=== PATIENT | male | born 1930 | race Caucasian/White ===

== ENCOUNTER 2016-10-14 08:05 | Inpatient (IN) | payer MEDICARE ==
--- NOTE | 2016-10-10 21:14 | HP ---
HISTORY AND PHYSICAL: DATE OF ADMISSION/SURGERY: 10/14/16 PROCEDURE: Right total knee arthroplasty. CHIEF COMPLAINT: Right knee pain. HISTORY OF PRESENT ILLNESS: Mr. Medina is an 86-year-old gentleman with complaints of right knee p ain. He has failed conservative management and he has elected to proceed with a right total knee ar throplasty which is scheduled for 10/14/[address] Leal. PAST MEDICAL HISTORY: Hypertension, prostate cancer, sleep apnea, hyperlipidemia, neurofibromatosis and basal cell carcinoma. PAST SURGICAL HISTORY: Hernia repair, cardiac catheterization, lumpectomy, basal cell removal. CURRENT MEDICATIONS: 1. Aspirin 81 mg once a day. 2. Naproxen 500 mg twice a day. 3. Fish oil 1000 mg 3 times a day. 4. Lisinopril 5 mg once a day. 5. Vitamin C 500 mg 3 times a day. 6. Calcium plus vitamin D 600 mg once a day. 7. Multivitamin once a day. 8. AREDS 2 once a day. 9. Flomax 0.4 mg once a day. 10. Lupron injection. ALLERGIES: To LIDOCAINE. FAMILY HISTORY: Heart disease and Parkinson's disease. SOCIAL HISTORY: He is an 86-year-old gentleman. He lives with his . He is retired. He is a f ormer smoker. He does not use drugs or alcohol. REVIEW OF SYSTEMS: A complete 14-point review of systems was reviewed with the patient, it was all negative or noncontributory. PHYSICAL EXAMINATION GENERAL: An 86-year-old gentleman who is in no acute distress. He is alert and oriented x3. HEENT: Normocephalic, atraumatic. NECK: Supple. Trachea is midline. PULMONARY: Lungs are clear to auscultation bilaterally. CARDIO: Regular rate and rhythm. Strong S1, S2. ABDOMEN: Soft, nontender, nondistended. MUSCULOSKELETAL: Right lower extremity, the skin is intact. His lower extremities muscle group str engths are intact at 5/5. He had an intact sensation and 2+ dorsalis pedis pulses. NEUROLOGICAL: Alert and oriented x3. Cranial nerves II through XII are intact. ASSESSMENT AND PLAN: Mr. Medina is an 86-year-old gentleman with complaints of right knee pain se condary to advanced osteoarthritis. He has failed conservative management and has elected to procee d with a right total knee arthroplasty which is scheduled for 10/14/[address] Leal di scussed the risks and benefits of the surgery at today's visit and all of his questions were answere d. Percocet and Coumadin were sent to his pharmacy for postoperative DVT prophylaxis and pain contr ol. He will follow up with Dr. Leal in 2 weeks after the surgery. LESTER BETH [id number]/[facility] #: [id number]
[~2016-10-14 08:05] MED LIST: Buffered Lidocaine 1% SYR 3ML* 3 ML/SYR SYRINGE INTRADERM ONE; Dexamethasone IV* 4 MG/ML 1 ML (4 MG) IV SLOW PU ONE; Famotidine IV* 10 MG/ML 2 ML (20 mg) IV ONE
[2016-10-14] MEDS ORDERED: Famotidine IV* 10 MG/ML 2 ML (20 mg) ONE ×2 (08:16→09:31)
[2016-10-14] MEDS ORDERED: Dexamethasone IV* 4 MG/ML 1 ML (4 MG) ONE ×2 (08:16→09:28)
[2016-10-14] MEDS ORDERED: ceFAZolin 2 GM PREMIX(*) 2 GM/50 ML BAG IVPB ONE (08:17)
[2016-10-14] MEDS ORDERED: Bupivacaine 0.5% SDV PF* 30 ML VIAL ONE (09:28)
[2016-10-14] MEDS ORDERED: Propofol* 500 MG/50 ML BTL ONE (09:28)
[2016-10-14] MEDS ORDERED: Propofol* 10 MG/ML 20 ML BTL IV PUSH ONE (09:28)
[2016-10-14] MEDS ORDERED: Ondansetron INJ* 2 MG/ML VIAL ONE (09:28)
[2016-10-14] MEDS ORDERED: fentaNYL* 50 MCG/ML 2 ML VIAL (100 MCG VIAL) ONE (09:28)
[2016-10-14] MEDS ORDERED: Ketorolac INJ* 30 MG/ML 1 ML VIAL ONE (09:28)
[2016-10-14] MEDS ORDERED: Phenylephrine INJ* 10 MG/ML 1 ML VIAL (10 MG) ONE (09:28)
[2016-10-14] MEDS ORDERED: KETAMINE HCL* 50 MG/ML 10 ML VIAL ONE (09:29)
[2016-10-14] MEDS ORDERED: Midazolam* 1 MG/ML 5 ML VIAL (5 MG) ONE (09:29)
[2016-10-14] MEDS ORDERED: Morphine PF AMP (0.5MG/ML)* 5 MG/10 ML AMP ONE (09:29)
[2016-10-14] MEDS ORDERED: Midazolam* 1 MG/ML 2 ML VIAL (2 MG) ONE (10:35)
[2016-10-14] MEDS ORDERED: Metoclopramide IV* 5 MG/ML 2 ML VIAL ONE (10:59)
[2016-10-14] MEDS ORDERED: fentaNYL* 50 MCG/ML 2 ML VIAL (100 MCG VIAL) IV PRN (11:40)
[2016-10-14] MEDS ORDERED: Ondansetron INJ* 2 MG/ML VIAL IV PRN ×2 (11:40→12:04)
[2016-10-14] MEDS ORDERED: DiMENhydriNATE IV* 50 MG/ML VIAL IV PUSH PRN (11:40)
[2016-10-14] MEDS ORDERED: Phenylephrine INJ* 50 MG in NS 0.9% 250 ML* 245 ML IV PRN (11:40)
[2016-10-14] MEDS ORDERED: Lactated Ringers 500 ml BAG* 500 ML IV PRN (11:58)
[2016-10-14] MEDS ORDERED: EPHEDrine (Pressors)* 50 MG/ML VIAL IV PUSH PRN (11:58)
[2016-10-14] MEDS ORDERED: oxyCODONE/Acetamin 5/325 MG* TAB PO PRN ×2 (11:58)
[2016-10-14] MEDS ORDERED: diPHENhydraMINE IV* 50 MG/ML 1 ml VIAL (BENADRYL) IV PRN (12:04)
[2016-10-14] MEDS ORDERED: Naloxone* 0.4 MG/ML 1 ML VIAL IV PRN (12:04)
[2016-10-14] MEDS ORDERED: Acetaminophen TAB* 325 MG PO PRN (13:29)
[2016-10-14] MEDS ORDERED: Bisacodyl SUPP* 10 MG SUPP PR PRN (13:37)
[2016-10-14] MEDS ORDERED: Polyethylene Glycol 3350* 17 GM PACKET PO PRN (13:37)
[2016-10-14] MEDS ORDERED: Fluticasone NASAL SPRAY 50MCG* 16 gm SPRAY BTL BOTH NARES PRN (13:42)
--- NOTE | 2016-10-14 14:24 | RAD ---
Indication: Right knee bipolar arthroplasty. 2 views of the right knee taken at the operating room demonstrates bipolar knee arthroplasty in satisfactory position. Drainage catheters are in place. IMPRESSION: Right knee bipolar arthroplasty in satisfactory position.
[2016-10-14] MEDS: Ropivacaine* 300 MG in NS 0.9% 250 ML* 240 ML EPIDURAL SCH (14:30)
[2016-10-14] MEDS ORDERED: Ropivacaine (OR use only) 2 MG/ML 1 ML ONE (15:06)
[2016-10-14] MEDS ORDERED: Warfarin TAB(*) 6 MG PO ONE (17:00)
[2016-10-14] MEDS: Ascorbic Acid TAB* 500 MG PO SCH ×2 (17:25→21:59)
--- NOTE | 2016-10-14 17:40 | CONS ---
CONSULTATION REPORT: DATE OF CONSULT: 10/14/16 AGE: 86. PRIMARY CARE PROVIDER: Dr. Vito Way. ATTENDING PHYSICIAN: Dr. Kamlesh Natarajan (dictated by Maisha Swann NP). PHYSICIAN REQUESTING CONSULTATION: Dr. Misa Leal. REASON FOR CONSULTATION: Co-medical management in a patient with a history of hypertension and obstructive sleep apnea. HISTORY OF PRESENT ILLNESS: Mr. Medina is an 86-year-old male with past medical history significant for hypertension, hyperlipidemia, obstructive sleep apnea, and prostate carcinoma who presents to the hospital for an elective right total knee replacement with Dr. Leal. Postoperatively, the patient is doing well and his pain is controlled. He has no complaints. The patient states that leading up to his surgery he has been in a good state of health with the exception of his right knee pain. The patient denies any recent fevers , chills, shortness of breath, or chest discomfort. The hospitalists were asked to assist with management of this patient during his postoperative period. PAST MEDICAL HISTORY: 1. Hypertension. 2. Prostate carcinoma. 3. Obstructive sleep apnea. 4. Hyperlipidemia. 5. Neurofibromatosis. 6. Bilateral ear basal cell carcinoma. 7. Obesity. 8. Arthritis. PAST SURGICAL HISTORY: 1. Status post bilateral inguinal hernia repair. 2. Status post cardiac catheterization. 3. Status post excision of neurofibromatosis from scalp. 4. Status post cosmetic excision of lumps from forehead. 5. Status post basal cell carcinoma excision from bilateral ears. 6. Status post benign excision from the nose. HOME MEDICATIONS: Include: 1. Aspirin 81 mg oral twice daily. 2. Naproxen 500 mg oral twice daily. 3. Fish oil 1000 mg oral 3 times daily. 4. Lisinopril 5 mg oral twice daily. 5. Vitamin C 500 mg oral 3 times daily. 6. Calcium plus vitamin D 600-400 one tablet oral twice daily. 7. AREDS 2 one tablet oral twice daily. 8. Flomax 0.4 mg oral daily. 9. Lupron injection every 4 months based on PSA level. Last injection was in August. ALLERGIES: LIDOCAINE PATCH causes anxiety. FAMILY HISTORY: The patient's father passed at age 68 of a myocardial infarction. The patient's sister passed at age 70 from heart disease. The patient's mother passed from pneumonia as a complication from Parkinson's disease. The patient denies any family history of diabetes mellitus or cancer. SOCIAL HISTORY: The patient is a former smoker. He quit smoking in 1958. Prior to that, he smoked half a pack a day for several years. The patient drinks a glass of wine weekly. He denies any recreational drug use. He lives with his and is retired. His , Michelle Medina, will be his surrogate decision maker in the event that he is unable to make decisions for himself. REVIEW OF SYSTEMS: I performed a 14-point review of systems. All the pertinent positives and negatives are mentioned in the history of present illness. The remaining review of systems are negative. PHYSICAL EXAMINATION: Vital Signs: Temperature 97.7, heart rate 64, respiratory rate 16, O2 sat 96% on 3 L via nasal cannula, blood pressure 116/ 69. Appearance: The patient is alert, pleasant, appears to be in no acute distress. HEENT: Normocephalic, atraumatic. Pupils are equal and reactive to light. Extraocular movements are intact. Cardiovascular: Regular rate and rhythm. S1, S2 are crisp. There are no murmurs, rubs, or gallops heard. Extremities: There is no lower extremity edema. DP and PT pulses are 2+ and symmetric. Respiratory: There is no accessory muscle use and the lungs are clear to auscultation bilaterally. Abdomen: Soft, nontender, nondistended. There are bowel sounds present in all 4 quadrants. Musculoskeletal: There is no clubbing or cyanosis noted. Skin: The patient has a dressing on his right knee that is clean, dry, and intact. Neurological: Cranial nerves II through XII are grossly intact. The patient is alert and oriented x4. Psychological: The patient is calm and cooperative. DIAGNOSTIC STUDIES: Right knee x-ray from today: Right knee bipolar arthroplasty in satisfactory position. IMPRESSION: Mr. Medina is an 86-year-old male with past medical history significant for hypertension, hyperlipidemia, obstructive sleep apnea, and arthritis who presented to the hospital today for an elective right total knee arthroplasty with Dr. Leal. Hospitalists were asked to assist with co- management of this patient during his hospitalization. PLAN: 1. Status post right total knee arthroplasty: Postop day. Management will be per Orthopedic Surgery. The patient will be provided with pain medication and a bowel regimen. His hemoglobin and hematocrit will be trended. He will have physical therapy and occupational therapy. His urinary catheter will remain in place until postop day 1. 2. Hypertension: In the perioperative period, we will hold the patient's lisinopril and restart accordingly. 3. Obstructive sleep apnea: The patient is noncompliant with CPAP at home h.s. use. He will be monitored on capnography postoperatively. 4. Prostate cancer: The patient should follow with Dr. Reid. 5. History of basal cell carcinoma: The patient should follow up with Dr. Sales. 6. Fluids, electrolytes, and nutrition: The patient will be on a regular diet starting with clear liquids and advance as tolerated. 7. DVT prophylaxis: The patient will be on Lovenox bridged to warfarin per Orthopedic Surgery. 8. Code status: Full code. 9. Disposition: Inpatient with disposition per Orthopedic Surgery. TIME SPENT: The time spent for this consultation was 60 minutes and 30 minutes were spent [id number] with the patient discussing medications, past medical history, and the events leading up to his arrival today and performing the physical examination. The case has been reviewed with the attending, Dr. Natarajan, who agrees with the plan of care. Reviewed by SATISH SOTO-Venkat 10/16/16 1233 CC: Dr. Vito Way; Dr. Misa Leal* [id number]/[facility] #: [id number] [facility] CENTERDipesh
[2016-10-14] MEDS: ceFAZolin 1 GM in Dextrose (*) 1 GM/50 ML BAG IVPB SCH (17:47)
[2016-10-14] MEDS ORDERED: Lisinopril TAB* 5 MG PO SCH (21:00)
[2016-10-14] MEDS: Docusate CAP* 100 MG PO SCH (21:59)
[2016-10-14] MEDS: Magnesium Hydroxide LIQ* 30 ML UDC PO SCH (22:05)
[2016-10-15] MEDS: ceFAZolin 1 GM in Dextrose (*) 1 GM/50 ML BAG IVPB SCH ×2 (02:31→10:24)
[2016-10-15] MEDS ORDERED: Ondansetron INJ* 2 MG/ML VIAL IV PRN (04:04)
[2016-10-15] MEDS ORDERED: oxyCODONE/Acetamin 5/325 MG* TAB PO PRN ×2 (04:04)
[2016-10-15] MEDS ORDERED: Morphine INJ* 10 MG/ML 1 ML SYRINGE IV PRN (04:04)
[2016-10-15] MEDS ORDERED: diPHENhydraMINE PO* 25 MG PO PRN (04:04)
[2016-10-15] MEDS ORDERED: Ondansetron TAB* 4 MG PO PRN (04:04)
[2016-10-15] MEDS ORDERED: diPHENhydraMINE IV* 50 MG/ML 1 ml VIAL (BENADRYL) IV PRN (04:04)
[2016-10-15 06:47] LABS: Hematocrit 33 % (42-52)
[2016-10-15 07:05] LABS: BUN/Creatinine Ratio 25.5 (8-20); Calcium 8.2 mg/dL (8.6-10.3); EGFR African American 93.5 (>60); EGFR Non-African American 72.7 (>60); Potassium 3.8 mmol/L (3.5-5.0)
--- NOTE | 2016-10-15 07:15 | OP ---
OPERATIVE REPORT: DATE OF OPERATION: 10/14/16 DATE OF : 32 ATTENDING SURGEON: Misa Leal MD. TELECOM MANAGER: LESTER Mckeon. Ms. Pineda was utilized throughout the entire procedure for preparation of the leg, wound retraction, manipulation of the leg, and wound closure. ANESTHESIOLOGIST: . ANESTHESIA: Spinal, epidural. PRE-OP DIAGNOSIS: Severe endstage degenerative osteoarthritis of the right knee joint. POST-OP DIAGNOSIS: Severe endstage degenerative osteoarthritis of the right knee joint. OPERATIVE PROCEDURE: Right total knee arthroplasty. COMPLICATIONS: None. TOURNIQUET TIME: 56 minutes. ESTIMATED BLOOD LOSS: Less than 200 cc. SPECIMENS: Bone and cartilage from the right knee joint, sent to Pathology. HARDWARE USED: Cemented [employer] total knee hardware. Two packages of Simplex bone cement. For the femur, a size 8 right posterior stabilized LEGION femoral component; for the tibia, a size 7 right tibial baseplate; for the insert, a 9 mm posterior stabilized articular insert; and for the patella, a 35- mm 3-peg all poly patella. BRIEF HISTORY/INDICATION: Mr. Medina is an 86-year-old gentleman with years of increasingly severe right knee pain. He failed conservative treatment with anti- inflammatories, pain medications, intra-articular injection, and physical therapy, as well as use of cane. He elected to undergo right total knee arthroplasty due to continued pain and decreased quality of life. Radiographs showed severe end-stage arthritis with [id number] contact in the medial compartment. Informed consent was obtained from the patient. He understood the risks of the surgery include, but were not limited to, bleeding, infection, damage to nearby structures, continued pain, need for further surgery, intraoperative fracture, nerve palsy, hardware failure or loosening, stiffness, loss of motion, stroke, heart attack, blood clot, and . INTRAOPERATIVE FINDINGS: Intraoperatively, the patient was noted to have severe endstage arthritis with complete loss of cartilage in the medial and patellofemoral compartments. He had a 15-degree preop flexion contracture. Postoperatively, this patient had full extension to 125 degrees of flexion. DESCRIPTION OF PROCEDURE: Mr. Medina is an 86-year-old gentleman identified in the pre-anesthesia unit. His right lower extremity was marked as the correct operative side. Informed consent was signed and placed in the chart. The patient was taken to the operating room and placed under spinal epidural anesthesia without difficulty. A Hickman catheter was placed. Thigh high tourniquet was placed on the right thigh. Right lower extremity was prepped and draped in the usual sterile fashion. Preoperative time-out was made to correctly identify the patient's side and site. Appropriate perioperative antibiotics were given within one hour of incision. Tourniquet was inflated and total tourniquet time for this procedure was 56 minutes. A 10-blade was used to make a midline incision and carried down to the extensor mechanism. A new 10-blade was used to make a standard medial parapatellar arthrotomy. Patella was subluxed laterally. Electrocautery was used to subperiosteally elevate the soft tissue off the superomedial tibia to the mid sagittal plane. The knee was flexed up. The anterior horn of the lateral meniscus and ACL was sharply released. A drill was used to enter the distal femur. Intramedullary distal femoral cutting guide was pinned on the distal femur. Oscillating saw was used to make the distal femoral cut. Next, the external rotation guide was placed on the distal femur. Distal femur was sized to a size 8. Size 8 multi-cutting jig was pinned on the distal femur. Oscillating saw was used to make the appropriate four chamfer cuts. All bony fragments were carefully removed. Patient was noted to have some osteopenia. PCL was completely released. The tibia was subluxed anteriorly. Extramedullary tibial cutting guide was pinned on the proximal tibia. Oscillating saw was used to make the proximal tibial cut perpendicular to the mechanical axis of the tibia. The proximal tibial bone was carefully removed. The knee was brought out into full extension. A spacer block was placed and had good balancing of the medial and lateral ligaments. Flexion and extension gaps were well balanced. The knee was flexed up. Lamina sample grader was placed both medially and laterally. Any remaining meniscus was carefully removed using electrocautery. Curved osteotome was used to remove any posterior osteophyte. A size 8 right femoral trial was impacted on to the distal femur and had good fit. The box for the posterior stabilized implant was prepared using a reamer and box cut osteotome. A size 7 tibial tray trial and 9 mm insert trial were placed and the knee was taken through a range of motion. The knee had full extension to 125 degrees of flexion with good patellofemoral tracking. Patella was everted. 9 mm of patellar bone and cartilage were carefully removed using an oscillating saw. The patella was sized to a size 5. Size 35 drill guide was used to drill the three peg holes. A 35 trial patella was placed and the knee was taken through a range of motion. There was excellent patellofemoral tracking. All trials were carefully removed. The tibia was subluxed anteriorly and sized to a size 7. Proximal tibia was prepared using a size 7 keel punch. All bony surfaces were copiously irrigated with sterile saline and dried. Final components were cemented into place, starting with the tibia, followed by the femur, and lastly the patella. A 9-mm insert trial was placed while the knee was brought out into full extension. Tourniquet was turned down at 56 minutes. The cement was allowed to fully cure. The knee was copiously irrigated with sterile saline. Once the cement was fully cured, the insert trial was removed. Electrocautery was used to obtain meticulous hemostasis. Any excess cement around the implants were carefully removed. Final insert chosen was a 9 mm posterior stabilized articular insert, size 7-8. This was locked into position on the tibial tray. Stability of the insert was checked and rechecked and noted to be stable. The knee was copiously irrigated with sterile saline. The extensor mechanism was reapproximated using interrupted #1 Vicryl's over a medium Hemovac drain. The rest of the incision was closed in a layered fashion using 0 and 2-0 Vicryl' s. The skin was closed using running 3-0 nylon suture. The incision was covered with Xeroform, 4 x 4's, and Webril. Kailash wrap and cold packs were placed over this. Intended weightbearing will be weightbearing as tolerated. Intended DVT prophylaxis will be Coumadin, with a Lovenox bridge. The patient's anesthesia was reversed and he was taken to the PACU in stable condition. [id number]/[facility] #: [id number] DONALD
[2016-10-15] MEDS: Docusate CAP* 100 MG PO SCH ×2 (08:04→21:40)
[2016-10-15] MEDS: Magnesium Hydroxide LIQ* 30 ML UDC PO SCH ×2 (08:04→21:41)
[2016-10-15] MEDS: Ascorbic Acid TAB* 500 MG PO SCH ×3 (08:04→21:40)
[2016-10-15] MEDS: Tamsulosin CAP* 0.4 MG PO SCH ×2 (08:05→08:42)
--- NOTE | 2016-10-15 10:32 | PN ---
Subjective Date of Service: 10/15/16 Interval History: Patient seen this morning. Says he feels very well, surprised at how little pain he is having. Eating well. Hickman out. No BM yet. Family History: Unchanged from Admission Social History: Unchanged from Admission Past Medical History: Unchanged from Admission Objective Active Medications: Acetaminophen (Tylenol Tab*) 650 mg PO Q4H PRN Ascorbic Acid (Vitamin C Tab*) 500 mg PO TID ANUPAM Bisacodyl (Dulcolax Supp*) 10 mg KS DAILY PRN Diphenhydramine HCl (Benadryl Iv*) 12.5 mg IV Q6H PRN Diphenhydramine HCl (Benadryl Po*) 25 mg PO Q6H PRN Docusate Sodium (Colace Cap*) 100 mg PO BID AUNPAM Enoxaparin Sodium (Lovenox(*)) 30 mg SUBCUT Q24H ANUPAM Fluticasone Propionate (Flonase Nasal [place] 50mcg*) 1 spray BOTH NARES DAILY PRN Phenylephrine HCl 50 mg/ (Sodium Chloride) 250 mls @ 6 mls/hr IV .(Initial Rate ) PRN; 20 MCG/MIN Ropivacaine 300 mg/ Sodium (Chloride) 300 mls @ 0 mls/hr EPIDURAL Q24H ANUPAM; Per Protocol Cefazolin Sodium/Dextrose (Kefzol 1 Gm In Dextrose Duplex (*)) 1 gm in 50 mls @ 200 mls/hr IVPB Q8H ANUPAM Lactated Ringer's (Lactated Ringers 1000 Ml Bag*) 1,000 mls @ 100 mls/hr IV PER RATE ANUPAM Lactulose (Lactulose*) 30 ml PO Q6H PRN Magnesium Hydroxide (Milk Of Magnesia Liq*) 30 ml PO BID ANUPAM Morphine Sulfate (Morphine Inj (Syringe)*) 5 mg IV Q2H PRN Ondansetron HCl (Zofran Inj*) 4 mg IV Q6H PRN Ondansetron HCl (Zofran Tab*) 4 mg PO Q6H PRN Oxycodone HCl (Roxycodone Tab*) 10 mg PO Q4H PRN Oxycodone/Acetaminophen (Percocet 5/325 Tab*) 1 tab PO Q3H PRN Oxycodone/Acetaminophen (Percocet 5/325 Tab*) 2 tab PO Q3H PRN Polyethylene Glycol/Electrolytes (Miralax*) 17 gm PO DAILY PRN Tamsulosin HCl (Flomax Cap*) 0.4 mg PO DAILY ANUPAM Warfarin Sodium (Coumadin Tab(*)) 8 mg PO ONCE@1700 ONE Vital Signs 10/14/16 10/14/16 10/14/16 13:20 13:25 13:30 Temperature 97.7 F Pulse Rate 74 73 72 Respiratory 14 16 18 Rate Blood Pressure 104/67 100/63 97/65 (mmHg) O2 Sat by Pulse 92 94 94 Oximetry 10/14/16 10/14/16 10/14/16 16:10 16:35 17:13 Temperature 97.3 F 97.8 F Pulse Rate 74 64 Respiratory 16 16 14 Rate Blood Pressure 119/66 117/69 (mmHg) O2 Sat by Pulse 99 97 97 Oximetry 10/15/16 10/15/16 10/15/16 00:10 02:10 03:37 Temperature 97.4 F Pulse Rate 54 Respiratory 16 18 16 Rate Blood Pressure 98/54 (mmHg) O2 Sat by Pulse 98 97 100 Oximetry 10/15/16 10/15/16 10/15/16 05:49 06:00 07:32 Temperature 97.6 F Pulse Rate 55 Respiratory 20 20 16 Rate Blood Pressure 105/60 (mmHg) O2 Sat by Pulse 95 100 Oximetry Oxygen Devices in Use Now: None Appearance: Elderly, M, sitting in chair in NAD Eyes: No Scleral Icterus Ears/Nose/Mouth/Throat: Mucous Membranes Moist Neck: NL Appearance and Movements; NL JVP Respiratory: Symmetrical Chest Expansion and Respiratory Effort, Clear to Auscultation Cardiovascular: NL Sounds; No Murmurs; No JVD, RRR Abdominal: NL Sounds; No Tenderness; No Distention Lymphatic: No Cervical Adenopathy Extremities: - - Mild B/L LE ankle edema, R cryounit in place Skin: No Rash or Ulcers Neurological: Alert and Oriented x 3 Result Diagrams: 10/15/16 06:38 10/15/16 06:38 Assess/Plan/Problems-Billing Assessment: 86 yo M with hx of HTN, HLD, ARABELLA, prostate ca s/p R TKA on 10/14 - Patient Problems (1) Status post total knee replacement, right Current Visit: Yes Comment: done on 10/14. Management as per Orthopedics. Patient on coumadin/lovenox. Hickman removed. (2) HTN (hypertension) Current Visit: Yes Comment: BPs stable/low. Continue to hold BID Lisinopril. (3) ARABELLA (obstructive sleep apnea) Current Visit: Yes Comment: Non-compliant at home, will not start CPAP while hospitalized. (4) Prostate cancer Current Visit: Yes Comment: Continue flomax. On outpatient Lupron depot shots. F/U with Dr. Reid as outpatient. (5) DVT prophylaxis Current Visit: Yes Comment: Lovenox/Coumadin
[2016-10-15] MEDS: Ropivacaine* 300 MG in NS 0.9% 250 ML* 240 ML EPIDURAL SCH (12:21)
[2016-10-15] MEDS: Enoxaparin(*) 30 MG/0.3 ML SYR SUBCUT SCH (14:47)
[2016-10-15] MEDS ORDERED: Warfarin TAB(*) 4 MG PO ONE (17:00)
[2016-10-15] MEDS: oxyCODONE TAB* 5 MG TAB PO PRN (21:40)
[2016-10-16] MEDS: oxyCODONE TAB* 5 MG TAB PO PRN ×2 (02:09→06:26)
[2016-10-16 06:26] LABS: Hematocrit 32 % (42-52); Hemoglobin 10.6 g/dl (14.0-18.0)
--- NOTE | 2016-10-16 07:43 | PN ---
Progress Note - Progress Note SOAP: Subjective: Pt. reports pain is controlled, he is doing well, feels safe to go home. Objective: RLE - dressing changed, inc c/d/i. min edema, distally nvi. Vital Signs: Temp Pulse Resp BP Pulse Ox 98.4 F 83 20 118/63 93 10/16/16 04:04 10/16/16 04:04 10/16/16 06:26 10/16/16 04:04 10/16/16 04:04 Laboratory Results - last 24 hr 10/16/16 10/16/16 05:53 05:53 Hgb 10.6 L Hct 32 L INR (Anticoag Therapy) 1.34 H Assessment: 86 yo M pod 2 s/p RTKA Plan: wbat rle pt/ot 8 mg coumadin tonight, give lovenox this AM plan d/c to home with vns today after afternoon PT
[2016-10-16 08:02] VITALS: BP 109/48
[2016-10-16] MEDS: Docusate CAP* 100 MG PO SCH (09:47)
[2016-10-16] MEDS: Tamsulosin CAP* 0.4 MG PO SCH (09:47)
[2016-10-16] MEDS: Magnesium Hydroxide LIQ* 30 ML UDC PO SCH (09:47)
[2016-10-16] MEDS: Ascorbic Acid TAB* 500 MG PO SCH (09:47)
[2016-10-16] MEDS: Enoxaparin(*) 30 MG/0.3 ML SYR SUBCUT SCH (09:48)
[2016-10-16] MEDS ORDERED: Warfarin TAB(*) 4 MG PO ONE (12:00)
--- NOTE | 2016-10-17 02:27 | DS ---
DISCHARGE SUMMARY: DATE OF ADMISSION: 10/14/16 DATE OF DISCHARGE: 10/16/16 ATTENDING PROVIDER: Dr. Leal (DICTATED BY LESTER WEISS) ADMISSION DIAGNOSIS: Severe end-stage osteoarthritis of the right knee. DISCHARGE DIAGNOSIS: Severe end-stage osteoarthritis of the right knee. SURGERY PERFORMED: Right total knee arthroplasty. HOSPITAL COURSE: The patient is an 86-year-old male who has had increasingly severe right knee pain. He failed conservative management with antiinflammatories, pain medications and intraarticular cortisone injections, as well as physical therapy and use of a cane. The patient elected to proceed with surgical intervention and was taken to the operating room under the care of Dr. Misa Leal on the date of 10/14/16. He tolerated the procedure well and left the operating room in stable condition. Postoperatively, he progressed very well with physical therapy and occupational therapy goals, bearing weight as tolerated on the right lower extremity. The patient had no acute postoperative complications and was found to be stable for discharge to home on the date of 10/16/16. CONDITION ON DISCHARGE: The patient is afebrile. His vital signs are stable. His right knee incision is healing without evidence of infection. His dressings have been changed. His calf is soft and nontender. His neurovascular status is intact. He has dorsiflexion and plantarflexion of the right ankle. PLAN: Discharge to home. He will continue with his physical therapy and occupational therapy exercises, bearing weight as tolerated on the right lower extremity. He will continue with Coumadin for his DVT prophylaxis. He will receive 8 mg of Coumadin today prior to his discharge. He will take 4 mg of Coumadin on 10/17/16, and 4 mg of Coumadin on 10/18/16. He will then take 2 mg of Coumadin on 10/19/16, and will have visiting home nurse see him on Thursday where an INR will be drawn and next Coumadin dosage to follow. He will continue with Colace and the Percocet medications for pain and prevent constipation. He will follow up with Dr. Leal in roughly 2 weeks in the office. He will call with any complaints of fever, chills, increased knee pain, swelling, drainage, redness, calf pain, calf swelling, shortness of breath, or chest pain. LESTER WEISS [id number]/[facility] #: [id number] [facility]PITAL[facility]ip[facility]
== END 2016-10-16 12:35 | disposition home health service (06) | DRG 470 ==
LOC: AA 08:05 → SSU 13:30
PROVIDERS: ADMIT Orthopaedic Surgery Adult Reconstructive Orthopaedic Surgery; ATTEND Orthopaedic Surgery Adult Reconstructive Orthopaedic Surgery
PROC: 0SRC0J9 Replacement of Right Knee Joint with Synthetic Substitute, Cemented, Open Approach (ICD-10-PCS; principal; 2016-10-14 10:30)
DX: M17.11 Unilateral primary osteoarthritis, right knee (principal); I27.2 Other secondary pulmonary hypertension; I10 Essential (primary) hypertension; Z85.46 Personal history of malignant neoplasm of prostate; E78.5 Hyperlipidemia, unspecified; Q85.00 Neurofibromatosis, unspecified; Z88.8 Allergy status to other drugs, medicaments and biological substances; Z82.49 Family history of ischemic heart disease and other diseases of the circulatory system; Z82.0 Family history of epilepsy and other diseases of the nervous system; Z87.891 Personal history of nicotine dependence; G47.33 Obstructive sleep apnea (adult) (pediatric); E66.9 Obesity, unspecified; Z85.828 Personal history of other malignant neoplasm of skin; Z68.31 Body mass index [BMI] 31.0-31.9, adult
CPT/HCPCS: 36415; 62327; 80048; 85014; 85018; 85610; 88305; 88311; A9270-GY; C1776; J0690; J1100; J1650; J1885; J2250; J2405; J2704; J2795; J3010

== ENCOUNTER 2016-11-06 16:35 | Observation (INO) | payer MEDICARE ==
[2016-11-06] MEDS ORDERED: Aspirin Low Dose CHEW TAB* 81 MG PO ONE (18:47)
[2016-11-06 18:53] LABS: Hematocrit 36 % (42-52); Hemoglobin 11.7 g/dl (14.0-18.0); Mean Corpuscular HGB Conc 33 g/dl (31-36); Mean Corpuscular Hemoglobin 30 pg (27-31); Mean Corpuscular Volume 90 fL (80-94); Mean Platelet Volume 8 um3 (7.4-10.4); Red Blood Count 3.97 10^6/ul (4.0-5.4); Red Cell Distribution Width 15 % (10.5-15); White Blood Count 7.2 10^3/ul (3.5-10.8)
[2016-11-06 19:05] LABS: Albumin 4.1 g/dL (3.2-5.2); BUN/Creatinine Ratio 23.2 (8-20); Calcium 9.3 mg/dL (8.6-10.3); EGFR African American 96.9 (>60); EGFR Non-African American 75.3 (>60); Globulin 2.7 g/dL (2-4); Total Protein 6.8 g/dL (6.4-8.9)
[2016-11-06 19:06] LABS: Troponin I 0.02 ng/mL (<0.04)
[2016-11-06] MEDS ORDERED: Iohexol 350* (CONTRAST) 500 ML MDV IV ONE (19:13)
[2016-11-06 20:31] LABS: Erythrocyte Sed Rate 32 mm/Hr (0-40)
--- NOTE | 2016-11-06 20:38 | RAD ---
Indication: Bilateral leg edema. Duplex Doppler sonography of the deep venous system of the bilateral lower extremity deep venous system was performed. Bilaterally the common femoral veins appear patent and compressible. Bilaterally proximal greater saphenous vein, proximal deep femoral vein, femoral vein, popliteal vein, appear patent and compressible. Right calf veins are limited in evaluation due to extreme swelling and body habitus. Left calf veins appear patent and compressible. IMPRESSION: NO EVIDENCE OF DEEP VENOUS THROMBOSIS IS IDENTIFIED. RIGHT PERONEAL VEINS AND POSTERIOR TIBIAL VEINS ARE NOT WELL DEMONSTRATED DUE TO BODY HABITUS AND SWELLING.
--- NOTE | 2016-11-06 20:45 | RAD ---
Indication: Palpitations. Single frontal view of the chest performed at 1914 hours was reviewed. Comparison is made with previous exam dated October 10, 2016. No mediastinal shift is noted. Heart is of normal size and configuration. Lung marcum appear clear. Hyperinflated lung marcum are noted. IMPRESSION: NO ACTIVE CARDIOPULMONARY DISEASE IS NOTED.
--- NOTE | 2016-11-06 20:48 | RAD ---
Indication: Palpitations. Contrast: Administered 98.0 ml of OMNIPAQUE 300 mgi/ml CTA of the chest was performed after IV contrast demonstration. Coronal and sagittal reconstructed images were obtained. The pulmonary arterial tree is well opacified. There are no evidence of filling defect to suggest pulmonary embolus. The aorta demonstrates no evidence of aortic dissection or aortic aneurysm. There is cardiomegaly noted. The trachea and major bronchi appear patent. The lung marcum demonstrate no evidence of pleural fluid, nodules or masses. Inferior thyroid lobes are unremarkable. No mediastinal or hilar adenopathy is noted. The heart demonstrates no pericardial effusion. The trachea and major bronchi appear patent. Lung marcum demonstrate no evidence of alveolar consolidation. The visualized abdominal organs are unremarkable. IMPRESSION: NO DEFINITE EVIDENCE OF PULMONARY EMBOLUS IS NOTED. NO ALVEOLAR CONSOLIDATION IS NOTED.
[2016-11-06] MEDS ORDERED: Diltiazem IV* 5 MG/ML 5 ML VIAL (for loading dose/IV Push) (25 MG) IV SLOW PU ONE (20:55)
[2016-11-06] MEDS ORDERED: Metoprolol Tartrate IV* 1 MG/ML 5 ML VIAL IV PRN (21:02)
[2016-11-06 21:31] LABS: C Reactive Protein 8.42 mg/L (< 5.00)
[2016-11-06] MEDS ORDERED: Warfarin TAB(*) 5 MG PO ONE ×2 (22:00)
[2016-11-06] MEDS: Enoxaparin(*) 150 MG/ML 1 ML SYRINGE SUBCUT SCH (23:28)
--- NOTE | 2016-11-06 23:35 | HP ---
CC: Dr. Vito Way; Dr. Misa Leal * HISTORY AND PHYSICAL: DATE OF ADMISSION: 11/06/16 CHIEF COMPLAINT: Tachycardia. HISTORY OF PRESENT ILLNESS: The patient is an 86-year-old gentleman, who said he was feeling at home but that the visiting nurse who had come by and said his heart rate was quite high. They called the PCP who saw him and he had an EKG done and they were concerned it was atrial fibrillation with a rapid ventricular response. The patient was completely asymptomatic. He had no palpitations, no chest pain, no shortness of breath. The EKG was repeated here , it was difficult to tell if it was sinus tachycardia, Aflutter, or atrial fibrillation. There did, however, seemed to be some detectable waves. The patient's INR was subtherapeutic. Venous duplex was done because he had a significantly enlarged right lower extremity and it was negative. He also had a CTA of his chest done and showed no evidence of PE. The patient is admitted because his INR is subtherapeutic and he is still quite tachycardic. PAST MEDICAL HISTORY: Significant for hypertension, prostate cancer, obstructive sleep apnea, hyperlipidemia, neurofibromatosis, bilateral ear basal cell carcinoma, obesity, arthritis. PAST SURGICAL HISTORY: Significant for total knee replacement in this past September , bilateral inguinal hernia repair, status post cardiac cath, status post excision of neurofibromatosis from the scalp, status post cosmetic excision of lumps from forehead, status post basal cell carcinoma excision from bilateral ears, status post benign excision from the nose. CURRENT MEDICATIONS: 1. Tamsulosin 0.4 mg daily. 2. [place] 3 fatty acid 1 capsule 3 times a day. 3. Multivitamin 1 capsule daily. 4. Calcium carbonate with vitamin D 1 cap twice daily. 5. Ascorbic acid 500 mg 3 times a day. 6. AREDS vitamin for the eyes. ALLERGIES: He has an allergy/adverse reaction to LIDOCAINE PATCH, which cause anxiety. FAMILY HISTORY: Father at 68 of an [place]. Mother from pneumonia, had Parkinson. He had sister who at 70 from heart disease. SOCIAL HISTORY: Ex-tobacco, quit in 59. Drinks a glass of wine weekly. No recreational drug use. He is . His , Michelle Medina, is his healthcare proxy. REVIEW OF SYSTEMS: A 14-point review of systems was completed with the patient. All pertinent positives and negatives are in the history of present illness; otherwise, it is negative. PHYSICAL EXAMINATION GENERAL: A pleasant gentleman, lying in bed, in no acute distress. VITAL SIGNS: Heart rate 119 beats per minute, respiratory rate 20 breaths per minute, pulse ox 96%, blood pressure 126/87, temperature 97 degrees. HEENT: Normocephalic, atraumatic. Pupils equal, round, reactive to light. Moist mucous membranes. NECK: Supple. No JVD, bruits, palpable thyroid or lymphadenopathy. CHEST: Clear to auscultation. CARDIOVASCULAR: S1, S2 appreciated. Increased rate, regular rhythm. ABDOMEN: Positive bowel sounds in all 4 quadrants. Soft, nontender. EXTREMITIES: No cyanosis or clubbing. He had significant right lower extremity edema, but no tenderness. Negative Homans. NEUROLOGIC: He is alert and oriented x3. He moves all extremities. SKIN: Several growths on his scalp, but no other significant lesions. DIAGNOSTIC STUDIES/LAB DATA: White count 7.2, hemoglobin 11.7, hematocrit 36, platelets of 318. Sodium is 134, potassium 4.0, chloride 99, CO2 27, BUN 22, creatinine 0.95, glucose is 111, CRP is 8.42. D-dimer is 839. Chest x-ray was interpreted by Radiology as no active cardiopulmonary disease is noted. CTA of the chest shows no definite evidence of PE is noted. No alveolar consolidation is noted. Venous duplex shows no evidence of DVT is identified, right peroneal veins and posterior tibial veins not well demonstrated due to body habitus and swelling. EKG shows possible sinus tachycardia versus AFib with rapid ventricular response. ASSESSMENT AND PLAN: 1. Tachycardia. I do believe not sure if this is really atrial fibrillation. His heart rate is also quite regular. I will try to get his heart rate under good control with Lopressor 5 mg IV q.6 hours. He is already on Coumadin, so I will continue that, but I will place him on Lovenox as a bridge at this time. I will place him on telemetry and monitor him in a CD unit. 2. Hypertension. Blood pressure well-controlled, continue current regimen. 3. FEN. Regular diet. 4. DVT prophylaxis: He is on Lovenox at treatment doses. 5. The patient is a full code. TIME SPENT: Over 80 minutes were spent on this H and P, and more than 45 minutes were spent in direct [id number] contact with the patient in evaluation , physical examination, counseling, and coordination of care. [id number]/[facility] #: [id number] DONALD
--- NOTE | 2016-11-06 23:38 | ED ---
Jimbo Malave Aidan, scribed for Yaakov Blanco MD on 11/06/16 at 1905 . Palpitations / Dysrhythmia - HPI Summary HPI Summary: 86 y/o male presents to the ED with a complaint of an acute, moderate episode of AFiB based on an ekg reading. Currently, he is asymptomatic. Pt denies any fever, diaphoresis, chills, CP, or SOB. Hx of prostate CA and a knee replacement 3 weeks ago. - History of Current Complaint Chief Complaint: EDDysrhythmPalp Time Seen by Provider: 11/06/16 18:45 Hx Obtained From: Patient Onset/Duration: Sudden Onset, Lasting Hours, Resolved Timing: Intermittent Episodes Lasting: Severity Initially: Moderate Severity Currently: Moderate Character: Irregular - AFiB Aggravating: Nothing - unknown Alleviating: Nothing - unknown Associated Signs & Symptoms: Negative - Risk Factors Cardiac: Smoking - former Pulmonary Embolism: Smoking - former - Allergy/Home Medications Allergies/Adverse Reactions: Allergies Allergy/AdvReac Type Severity Reaction Status Date / Time Lidocaine AdvReac Anxiety Verified 10/14/16 08:25 PMH/Surg Hx/FS Hx/Imm Hx Cardiovascular History: Reports: Hx Hypertension Respiratory History: Reports: Hx Sleep Apnea - no machine History: Reports: Other Problems/Disorders - enlarged prostate cancer Musculoskeletal History: Reports: Hx Arthritis Sensory History: Reports: Hx Cataracts - mild, Hx Contacts or Glasses Denies: Hx Hearing Aid Opthamlomology History: Reports: Hx Cataracts - mild, Hx Contacts or Glasses - Surgical History Surgery Procedure, Year, and Place: bilat inguinal hernia. 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 Hx Anesthesia Reactions: No Infectious Disease History: No Infectious Disease History: Denies: Traveled Outside the [place] in Last 30 Days - Family History Known Family History: Positive: Hypertension - Social History Occupation: Retired Lives: With Family Alcohol Use: Occasionally Substance Use Type: Reports: None Smoking Status (MU): Former Smoker Do You Chew or Dip Tobacco: No Amount Used/How Often: smoked 8 years, 1/2 - 1ppd Have You Chewed or Dipped Tobacco in the LAST YEAR: No Review of Systems Constitutional: Negative Eyes: Negative ENT: Negative Positive: Palpitations - AFiB. Negative: Chest Pain Respiratory: Negative Gastrointestinal: Negative Genitourinary: Negative Musculoskeletal: Negative Skin: Negative Neurological: Negative Psychological: Normal All Other Systems Reviewed And Are Negative: Yes Physical Exam - Summary Physical Exam Summary: Constitutional: Well-developed, Well-nourished, Alert. (-) Distressed Skin: Warm, Dry HENT: Normocephalic; Atraumatic Eyes: Conjunctiva normal Neck: Musculoskeletal ROM normal neck. (-) JVD, (-) Stridor, (-) Tracheal deviation Cardio: Irregular tachycardic pulse, Heart sounds normal; Intact distal pulses; The pedal pulses are 2+ and symmetric. Radial pulses are 2+ and symmetric. (-) Murmur Pulmonary/Chest wall: Effort normal. (-) Respiratory distress, (-) Wheezes, (-) Rales Abd: Soft, (-) Tenderness, (-) Distension, (-) Guarding, (-) Rebound Musculoskeletal: (-) Edema, swelling and warmth over right knee which has an incision Lymph: (-) Cervical adenopathy Neuro: Alert, Oriented x3 Psych: Mood and affect Normal Triage Information Reviewed: Yes Vital Signs On Initial Exam: Initial Vitals Temp Pulse Resp BP Pulse Ox 98.9 F 125 20 139/90 99 11/06/16 17:08 11/06/16 17:08 11/06/16 17:08 11/06/16 17:08 11/06/16 17:08 Vital Signs Reviewed: Yes Diagnostics - Vital Signs Vital Signs Temp Pulse Resp BP Pulse Ox 11/06/16 17:54 97 F 124 16 117/74 97 11/06/16 17:11 98.6 F 124 20 139/90 99 11/06/16 17:08 98.9 F 125 20 139/90 99 - Laboratory Lab Results: Lab Results 11/06/16 11/06/16 11/06/16 Range/Units 18:30 18:30 18:30 WBC 7.2 (3.5-10.8) 10^3/ul RBC 3.97 L (4.0-5.4) 10^6/ul Hgb 11.7 L (14.0-18.0) g/dl Hct 36 L (42-52) % MCV 90 (80-94) fL MCH 30 (27-31) pg MCHC 33 (31-36) g/dl RDW 15 (10.5-15) % Plt Count 318 (150-450) 10^3/ul MPV 8 (7.4-10.4) um3 Neut % (Auto) 66.0 (38-83) % Lymph % (Auto) 20.1 L (25-47) % [place] % (Auto) 7.3 (1-9) % Eos % (Auto) 5.4 (0-6) % Baso % (Auto) 1.2 (0-2) % Absolute Neuts (auto) 4.8 (1.5-7.7) 10^3/ul Absolute Lymphs (auto) 1.5 (1.0-4.8) 10^3/ul Absolute Monos (auto) 0.5 (0-0.8) 10^3/ul Absolute Eos (auto) 0.4 (0-0.6) 10^3/ul Absolute Basos (auto) 0.1 (0-0.2) 10^3/ul Absolute Nucleated RBC 0.01 10^3/ul Nucleated RBC % 0.1 ESR 32 (0-40) mm/Hr INR (Anticoag Therapy) 1.23 H (0.89-1.11) APTT 33.5 (26.0-36.3) seconds D-Dimer, Quantitative 839 H (Less Than 230) ng/mL Sodium 134 (133-145) mmol/L Potassium 4.0 (3.5-5.0) mmol/L Chloride 99 L (101-111) mmol/L Carbon Dioxide 27 (22-32) mmol/L Anion Gap 8 (2-11) mmol/L BUN 22 (6-24) mg/dL Creatinine 0.95 (0.67-1.17) mg/dL Est GFR ( Amer) 96.9 (>60) Est GFR (Non-Af Amer) 75.3 (>60) BUN/Creatinine Ratio 23.2 H (8-20) Glucose 111 H (70-100) mg/dL Lactic Acid (0.5-2.0) mmol/L Calcium 9.3 (8.6-10.3) mg/dL Total Bilirubin 1.00 (0.2-1.0) mg/dL AST 14 (13-39) U/L ALT 17 (7-52) U/L Alkaline Phosphatase 91 (34-104) U/L Troponin I 0.02 (<0.04) ng/mL C-Reactive Protein 8.42 H (< 5.00) mg/L Total Protein 6.8 (6.4-8.9) g/dL Albumin 4.1 (3.2-5.2) g/dL Globulin 2.7 (2-4) g/dL Albumin/Globulin Ratio 1.5 (1-3) 11/06/16 Range/Units 18:30 WBC (3.5-10.8) 10^3/ul RBC (4.0-5.4) 10^6/ul Hgb (14.0-18.0) g/dl Hct (42-52) % MCV (80-94) fL MCH (27-31) pg MCHC (31-36) g/dl RDW (10.5-15) % Plt Count (150-450) 10^3/ul MPV (7.4-10.4) um3 Neut % (Auto) (38-83) % Lymph % (Auto) (25-47) % [place] % (Auto) (1-9) % Eos % (Auto) (0-6) % Baso % (Auto) (0-2) % Absolute Neuts (auto) (1.5-7.7) 10^3/ul Absolute Lymphs (auto) (1.0-4.8) 10^3/ul Absolute Monos (auto) (0-0.8) 10^3/ul Absolute Eos (auto) (0-0.6) 10^3/ul Absolute Basos (auto) (0-0.2) 10^3/ul Absolute Nucleated RBC 10^3/ul Nucleated RBC % ESR (0-40) mm/Hr INR (Anticoag Therapy) (0.89-1.11) APTT (26.0-36.3) seconds D-Dimer, Quantitative (Less Than 230) ng/mL Sodium (133-145) mmol/L Potassium (3.5-5.0) mmol/L Chloride (101-111) mmol/L Carbon Dioxide (22-32) mmol/L Anion Gap (2-11) mmol/L BUN (6-24) mg/dL Creatinine (0.67-1.17) mg/dL Est GFR ( Amer) (>60) Est GFR (Non-Af Amer) (>60) BUN/Creatinine Ratio (8-20) Glucose (70-100) mg/dL Lactic Acid 0.9 (0.5-2.0) mmol/L Calcium (8.6-10.3) mg/dL Total Bilirubin (0.2-1.0) mg/dL AST (13-39) U/L ALT (7-52) U/L Alkaline Phosphatase (34-104) U/L Troponin I (<0.04) ng/mL C-Reactive Protein (< 5.00) mg/L Total Protein (6.4-8.9) g/dL Albumin (3.2-5.2) g/dL Globulin (2-4) g/dL Albumin/Globulin Ratio (1-3) Result Diagrams: 11/06/16 18:30 11/06/16 18:30 Lab Statement: Any lab studies that have been ordered have been reviewed, and results considered in the medical decision making process. - Radiology CHEST X-RAY Xray Interpretation: No Acute Changes Radiology Interpretation Completed By: Radiologist - CT CHEST/THORAX CTA CT Interpretation: No Acute Changes - IMPRESSION: NO DEFINITE EVIDENCE OF PULMONARY EMBOLUS IS NOTED. NO ALVEOLAR CONSOLIDATION IS NOTED. CT Interpretation Completed By: Radiologist - Ultrasound No standard instances Ultrasound Interpretation: No Acute Changes - VENOUS DOPPLER US IMPRESSION: NO EVIDENCE OF DEEP VENOUS THROMBOSIS IS IDENTIFIED. RIGHT PERONEAL VEINS AND POSTERIOR TIBIAL VEINS ARE NOT WELL DEMONSTRATED DUE TO BODY HABITUS AND SWELLING. Ultrasound Interpretation Completed By: Radiologist - EKG EKG 1714 Cardiac Rate: Tachycardia - 124 BPM EKG Rhythm: Atrial Fibrillation EKG Interpretation: AFIB, RAPID VENTRICULAR RESPONSE, NORMAL ST SEGMENTS Course/Dx - Course Course Of Treatment: 86 y/o male presents with an ekg reading of AFiB according to him. - Diagnoses Provider Diagnoses: Atrial fibrillation with rapid ventricular response Discharge - Discharge Plan Condition: Stable Disposition: ADMITTED TO [facility] documentation as recorded by the Jimbo archibald Aidan accurately reflects the service I personally performed and the decisions made by Bella abreu Jerry, MD.
[2016-11-07 01:56] LABS: Troponin I 0.02 ng/mL (<0.04)
[2016-11-07 05:36] LABS: Hematocrit 31 % (42-52); Hemoglobin 10.3 g/dl (14.0-18.0); Mean Corpuscular HGB Conc 33 g/dl (31-36); Mean Corpuscular Hemoglobin 30 pg (27-31); Mean Corpuscular Volume 90 fL (80-94); Mean Platelet Volume 8 um3 (7.4-10.4); Red Blood Count 3.47 10^6/ul (4.0-5.4); Red Cell Distribution Width 14 % (10.5-15); White Blood Count 6.4 10^3/ul (3.5-10.8)
[2016-11-07] MEDS ORDERED: Tamsulosin CAP* 0.4 MG PO SCH (09:00)
[2016-11-07] MEDS ORDERED: Ascorbic Acid TAB* 500 MG PO SCH (09:00)
[2016-11-07] MEDS ORDERED: Vitamin THERAPEUTIC TAB PO SCH (09:00)
[2016-11-07] MEDS ORDERED: Preservision Areds(NF) CAP PO SCH (09:00)
[2016-11-07] MEDS ORDERED: Calcium/Vitamin D TAB 250/125* TAB PO SCH (09:00)
[2016-11-07] MEDS: Enoxaparin(*) 150 MG/ML 1 ML SYRINGE SUBCUT SCH (10:15)
--- NOTE | 2016-11-07 10:58 | PN ---
Subjective Date of Service: 11/07/16 Interval History: Mr. Medina denies complaint and is eager for discharge today. He specifically denies chest pain, SOB, nausea, or abdominal pain. Objective Active Medications: Ascorbic Acid (Vitamin C Tab*) 500 mg PO TID [facility] Calcium/Vitamin D (Oscal D Tab 250/125*) 2 tab PO BID ANUPAM Enoxaparin Sodium (Lovenox(*)) 110 mg SUBCUT Q12H ANUPAM Metoprolol Tartrate (Lopressor Iv*) 5 mg IV Q6H PRN Multivitamins (Theragran Tab*) 1 tab PO DAILY [facility] Multivitamins/Minerals (Preservision Areds(Multivitamins/Mineral)(Nf)) 2 cap PO DAILY [facility] Tamsulosin HCl (Flomax Cap*) 0.4 mg PO DAILY [facility] Vital Signs 11/06/16 11/06/16 11/06/16 21:53 22:00 22:30 Temperature 97.2 F Pulse Rate 121 121 120 Respiratory 24 17 18 Rate Blood Pressure 114/68 117/73 137/86 (mmHg) O2 Sat by Pulse 96 96 97 Oximetry 11/06/16 11/07/16 11/07/16 23:32 03:53 07:21 Temperature 98.0 F 98.3 F 98.3 F Pulse Rate 123 71 75 Respiratory 16 16 20 Rate Blood Pressure 121/73 98/61 122/75 (mmHg) O2 Sat by Pulse 97 96 96 Oximetry Oxygen Devices in Use Now: None Appearance: Male lying in bed in NAD Eyes: No Scleral Icterus Ears/Nose/Mouth/Throat: Mucous Membranes Moist Neck: Trachea Midline Respiratory: Symmetrical Chest Expansion and Respiratory Effort, Clear to Auscultation Cardiovascular: NL Sounds; No Murmurs; No JVD, No Edema Abdominal: NL Sounds; No Tenderness; No Distention Lymphatic: No Cervical Adenopathy Extremities: No Edema Skin: No Rash or Ulcers, - - neurofibromatosis to left forehead Neurological: Alert and Oriented x 3, NL Muscle Strength and Tone Nutrition: Taking PO's Result Diagrams: 11/07/16 05:13 11/06/16 18:30 Additional Lab and Data: Lab Results 11/06/16 11/06/16 11/06/16 Range/Units 18:30 18:30 18:30 WBC 7.2 (3.5-10.8) 10^3/ul RBC 3.97 L (4.0-5.4) 10^6/ul Hgb 11.7 L (14.0-18.0) g/dl Hct 36 L (42-52) % MCV 90 (80-94) fL MCH 30 (27-31) pg MCHC 33 (31-36) g/dl RDW 15 (10.5-15) % Plt Count 318 (150-450) 10^3/ul MPV 8 (7.4-10.4) um3 Neut % (Auto) 66.0 (38-83) % Lymph % (Auto) 20.1 L (25-47) % [place] % (Auto) 7.3 (1-9) % Eos % (Auto) 5.4 (0-6) % Baso % (Auto) 1.2 (0-2) % Absolute Neuts (auto) 4.8 (1.5-7.7) 10^3/ul Absolute Lymphs (auto) 1.5 (1.0-4.8) 10^3/ul Absolute Monos (auto) 0.5 (0-0.8) 10^3/ul Absolute Eos (auto) 0.4 (0-0.6) 10^3/ul Absolute Basos (auto) 0.1 (0-0.2) 10^3/ul Absolute Nucleated RBC 0.01 10^3/ul Nucleated RBC % 0.1 ESR 32 (0-40) mm/Hr INR (Anticoag Therapy) 1.23 H (0.89-1.11) APTT 33.5 (26.0-36.3) seconds D-Dimer, Quantitative 839 H (Less Than 230) ng/mL Sodium 134 (133-145) mmol/L Potassium 4.0 (3.5-5.0) mmol/L Chloride 99 L (101-111) mmol/L Carbon Dioxide 27 (22-32) mmol/L Anion Gap 8 (2-11) mmol/L BUN 22 (6-24) mg/dL Creatinine 0.95 (0.67-1.17) mg/dL Est GFR ( Amer) 96.9 (>60) Est GFR (Non-Af Amer) 75.3 (>60) BUN/Creatinine Ratio 23.2 H (8-20) Glucose 111 H (70-100) mg/dL Lactic Acid (0.5-2.0) mmol/L Calcium 9.3 (8.6-10.3) mg/dL Total Bilirubin 1.00 (0.2-1.0) mg/dL AST 14 (13-39) U/L ALT 17 (7-52) U/L Alkaline Phosphatase 91 (34-104) U/L Troponin I 0.02 (<0.04) ng/mL C-Reactive Protein 8.42 H (< 5.00) mg/L Total Protein 6.8 (6.4-8.9) g/dL Albumin 4.1 (3.2-5.2) g/dL Globulin 2.7 (2-4) g/dL Albumin/Globulin Ratio 1.5 (1-3) /01/15 Range/Units 18:30 WBC (3.5-10.8) 10^3/ul RBC (4.0-5.4) 10^6/ul Hgb (14.0-18.0) g/dl Hct (42-52) % MCV (80-94) fL MCH (27-31) pg MCHC (31-36) g/dl RDW (10.5-15) % Plt Count (150-450) 10^3/ul MPV (7.4-10.4) um3 Neut % (Auto) (38-83) % Lymph % (Auto) (25-47) % [place] % (Auto) (1-9) % Eos % (Auto) (0-6) % Baso % (Auto) (0-2) % Absolute Neuts (auto) (1.5-7.7) 10^3/ul Absolute Lymphs (auto) (1.0-4.8) 10^3/ul Absolute Monos (auto) (0-0.8) 10^3/ul Absolute Eos (auto) (0-0.6) 10^3/ul Absolute Basos (auto) (0-0.2) 10^3/ul Absolute Nucleated RBC 10^3/ul Nucleated RBC % ESR (0-40) mm/Hr INR (Anticoag Therapy) (0.89-1.11) APTT (26.0-36.3) seconds D-Dimer, Quantitative (Less Than 230) ng/mL Sodium (133-145) mmol/L Potassium (3.5-5.0) mmol/L Chloride (101-111) mmol/L Carbon Dioxide (22-32) mmol/L Anion Gap (2-11) mmol/L BUN (6-24) mg/dL Creatinine (0.67-1.17) mg/dL Est GFR ( Amer) (>60) Est GFR (Non-Af Amer) (>60) BUN/Creatinine Ratio (8-20) Glucose (70-100) mg/dL Lactic Acid 0.9 (0.5-2.0) mmol/L Calcium (8.6-10.3) mg/dL Total Bilirubin (0.2-1.0) mg/dL AST (13-39) U/L ALT (7-52) U/L Alkaline Phosphatase (34-104) U/L Troponin I (<0.04) ng/mL C-Reactive Protein (< 5.00) mg/L Total Protein (6.4-8.9) g/dL Albumin (3.2-5.2) g/dL Globulin (2-4) g/dL Albumin/Globulin Ratio (1-3) Assess/Plan/Problems-Billing Assessment: Mr. Medina is an 86 yo male with a PMH of hypertension and recent right knee surgery who was admitted on 11/06/16 with tachycardia. - Patient Problems (1) Tachycardia Comment: Resolved, was asymptomatic throughout episode. Was not afib, just sinus tachycardia. No clear etiolog. CTA chest negative, US LE negative. Pt advised to stay hydrated and avoid caffeine. Will not start beta donn as patient has history of hypotension and this was a self-limited, asymptomatic, one-time episode. TSH pending. (2) HTN (hypertension) Comment: Continue lisinopril. (3) ARABELLA (obstructive sleep apnea) Comment: Non-compliant at home, will not start CPAP while hospitalized. (4) Status post total knee replacement, right Comment: Recovering well. (5) DVT prophylaxis Comment: Reviewed with Dr. Leal that patient is subtherapeutic on warfarin. Recommended to increase dose, no lovenox recommended.
[2016-11-07 11:21] VITALS: BP 120/65
[2016-11-07 11:34] LABS: TSH (Thyroid Stimulating Horm) 0.72 mcIU/mL (0.34-5.60)
--- NOTE | 2016-11-07 22:54 | DS ---
CC: Dr. Way * [facility] MEDICINE DISCHARGE SUMMARY: DATE OF ADMISSION: 11/06/16 DATE OF DISCHARGE: 11/07/16 ATTENDING PHYSICIAN: Dr. Wilmar Oviedo * (dictation provided by Kenia Chappell NP). PRIMARY DIAGNOSIS: Sinus tachycardia. SECONDARY DIAGNOSES: 1. History of recent right total knee replacement. 2. Hypertension. 3. Prostate cancer. 4. Obstructive sleep apnea. 5. Hyperlipidemia. 6. Neurofibromatosis. 7. Bilateral ear basal cell carcinoma. 8. Obesity. 9. Arthritis. 10. Bilateral inguinal hernia repair. 11. Status post cardiac cath. 12. Status post excision of neurofibromatosis from the scalp. 13. Status post cosmetic excision of lumps from the forehead. 14. Status post basal cell carcinoma excision from bilateral ears. 15. Status post benign excision from the nose. MEDICATIONS: At the time of discharge are: 1. Tamsulosin 0.4 mg daily. 2. [place] 3 fatty acid 1 capsule 3 times a day. 3. Multivitamin 1 capsule daily. 4. Calcium carbonate with vitamin D 1 cap twice daily. 5. Ascorbic acid 500 mg 3 times a day. 6. AREDS vitamins. 7. Warfarin 4 mg p.o. daily. HOSPITAL COURSE: Mr. Medina is an 86-year-old male with a past medical history of hypertension and recent total knee replacement with Dr. Leal in September who presented to the hospital yesterday with concerns for tachycardia. Please see the dictated H and P from Dr. Phillips for complete details. In brief, the patient had been evaluated by the visiting nurse at home and found to be tachycardic. The patient was sent to his primary care physician, Dr. Way, who obtained an EKG and was concerned that the perhaps the patient had atrial fibrillation and sent him to the emergency room. In the emergency room, he was found to be tachycardiac. Patient has a history of extensive work up with Dr. Duarte for concern of afib with absent to very small P waves, which was negative. Mr. Medina is doing well today. His heart rate is down from 120s to 70s. Throughout this entire episode, he has been asymptomatic. He did have a CTA of the chest and thorax, which was negative for pulmonary embolism as well as a venous Doppler study that was negative. I am not sure what caused Mr. Medina' s tachycardia. I have encouraged him to stay hydrated and avoid caffeine. We did check a TSH, but it is pending. He has no history of hypothyroidism. Mr. Medina is medically stable for discharge to home. He is going to be discharged on an increased dose of warfarin as his INR is subtherapeutic at 1.30 today. He states he was taking 2 mg at home and I am recommending he go up to 4 mg. He is followed regularly by [facility] for INR checks. This was reviewed with Dr. Leal who did not feel that the patient needed any further prophylaxis other than simple increase in his warfarin dose at this point. DISPOSITION: Home. DIET: Low salt. ACTIVITY: As tolerated. FOLLOWUP: 1. Please follow up Dr. Leal for routine after surgery. 2. Please follow up with Dr. Way as needed for any ongoing issues with tachycardia. TIME SPENT: Approximately 60 minutes were spent on the discharge of this patient, more than half the time spent with the patient at the bedside reviewing the events leading up to this hospitalization, performing the physical examination, and reviewing my plan of care. KENIA CHAPPELL NP [id number]/[facility] #: [id number] DONALD
== END 2016-11-07 12:49 | disposition home or self-care (01) ==
LOC: ED 16:35 → MEDTELE 21:02
PROVIDERS: ADMIT Internal Medicine; ATTEND Internal Medicine
DX: R00.0 Tachycardia, unspecified (principal); I10 Essential (primary) hypertension; Z85.46 Personal history of malignant neoplasm of prostate; G47.33 Obstructive sleep apnea (adult) (pediatric); E78.5 Hyperlipidemia, unspecified; Q85.00 Neurofibromatosis, unspecified; R60.9 Edema, unspecified; E66.9 Obesity, unspecified; M19.90 Unspecified osteoarthritis, unspecified site; Z95.5 Presence of coronary angioplasty implant and graft; Z79.01 Long term (current) use of anticoagulants; Z79.899 Other long term (current) drug therapy; Z87.891 Personal history of nicotine dependence; Z96.651 Presence of right artificial knee joint
CPT/HCPCS: 36415; 71010; 71275; 80053; 83605; 84443; 84484; 85025; 85379; 85610; 85652; 85730; 86140; 93005; 93970; 96372; 96374; 96375; 99284; A9270-GY; G0378; J1650; Q9967

== ENCOUNTER 2017-09-06 11:43 | Inpatient (IN) | payer MEDICARE ==
[2017-09-06] MEDS ORDERED: NS 0.9% 1000 ML* 1,000 ML IV ONE (13:10)
[2017-09-06 13:11] LABS: ABS Basophils 0.1 10^3/ul (0-0.2); ABS Eosinophils 0.1 10^3/ul (0-0.6); ABS Lymphocytes 0.7 10^3/ul (1.0-4.8); ABS Monocytes 0.7 10^3/ul (0-0.8); ABS Neutrophils 8.6 10^3/ul (1.5-7.7); ABS Nucleated RBC 0 10^3/ul; Eosinophil % 0.8 % (0-6); Hematocrit 26 % (42-52); Hemoglobin 8.6 g/dl (14.0-18.0); Lymphocyte % 6.8 % (25-47); Mean Corpuscular HGB Conc 33 g/dl (31-36); Mean Corpuscular Hemoglobin 30 pg (27-31); Mean Corpuscular Volume 90 fL (80-94); Mean Platelet Volume 7.8 um3 (7.4-10.4); Nucleated Red Blood Cells % 0.1; Platelet Count 255 10^3/ul (150-450); Red Blood Count 2.89 10^6/ul (4.0-5.4); Red Cell Distribution Width 14 % (10.5-15); White Blood Count 10.2 10^3/ul (3.5-10.8)
[2017-09-06 13:25] LABS: INR 4.8 (0.77-1.02)
[2017-09-06 13:30] LABS: EGFR Non-African American 72.5 (>60)
[2017-09-06] MEDS ORDERED: Magnesium Sulfate 2 GM IV* 2 GM/50 ML BAG IVPB ONE (14:42)
[2017-09-06] MEDS: NS 0.9% 1000 ML* 1,000 ML IV SCH (15:55)
[2017-09-06] MEDS: Phytonadione Oral Solution* 5 MG/25 ML UDC PO ONE ×2 (16:31→16:45)
[2017-09-06 17:17] LABS: Hematocrit 21 % (42-52); Hemoglobin 7.1 g/dl (14.0-18.0)
--- NOTE | 2017-09-06 18:15 | ED ---
Ian Malave Natalie, scribed for Timi Beltran MD on 09/06/17 at 1256 . GI/ HPI - HPI Summary HPI Summary: The pt is an 87 y/o M presenting to the ED c/o GI bleed with hematochezia starting this morning, as noticed by his . He had three BM this morning. The first was not looked at, but he noticed that the second was darker than usual, with possible blood. He had a third BM, close to incontinence, which had blood in it as observed by his . Pt additionally c/o pale and dry skin, swelling, tenderness, and erythema in left calf, and lightheadedness with movement. The pt takes Metoprolol (not taken this morning) for increased heart rate, as prescribed by Dr. Duarte. He has had a stress test before. - History of Current Complaint Chief Complaint: EDGIBleed Time Seen by Provider: 09/06/17 12:23 Stated Complaint: BLOODY STOOL Hx Obtained From: Patient Onset/Duration: Started Hours Ago, Still Present Timing: Intermittent Severity: Mild Current Severity: Mild Pain Intensity: 0 Associated Signs and Symptoms: Positive: Blood w/Stool, Lightheadedness, Pale, Other: - left leg swelling and tenderness - Additional Pertinent History Primary Care Physician: [id number] - Allergy/Home Medications Allergies/Adverse Reactions: Allergies Allergy/AdvReac Type Severity Reaction Status Date / Time lidocaine Allergy Anxiety Verified 09/06/17 12:03 Home Medications: Home Medications Metoprolol Succinate XL TAB* [Toprol XL TAB*] 25 mg PO DAILY 09/06/17 [History Confirmed 09/06/17] Tamsulosin CAP* [Flomax CAP*] 0.4 mg PO DAILY 09/06/17 [History Confirmed ] Vit C/E/Zn/Coppr/Lutein/Zeaxan [Preservision Areds 2 Softgel] 1 each PO DAILY [History Confirmed 09/06/17] Warfarin TAB(*) [Coumadin TAB(*)] 6 mg PO DAILY 09/06/17 [History Confirmed 01/16] PMH/Surg Hx/FS Hx/Imm Hx Cardiovascular History: Reports: Hx Hypertension Respiratory History: Reports: Hx Sleep Apnea - no machine History: Reports: Other Problems/Disorders - enlarged prostate cancer Musculoskeletal History: Reports: Hx Arthritis Sensory History: Reports: Hx Cataracts - mild, Hx Contacts or Glasses Denies: Hx Hearing Aid Opthamlomology History: Reports: Hx Cataracts - mild, Hx Contacts or Glasses - Surgical History Surgery Procedure, Year, and Place: bilat inguinal hernia. 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 Hx Anesthesia Reactions: No Infectious Disease History: No Infectious Disease History: Denies: Traveled Outside the [place] in Last 30 Days - Family History Known Family History: Positive: Hypertension - Social History Alcohol Use: Occasionally Substance Use Type: Reports: None Smoking Status (MU): Former Smoker Amount Used/How Often: smoked 8 years, 1/2 - 1ppd Review of Systems Positive: Other - swelling and redness of left calf All Other Systems Reviewed And Are Negative: Yes Physical Exam - Summary Physical Exam Summary: Appearance: The patient is well-nourished in no acute distress and in no acute pain. Skin: The skin is warm and dry and skin color reflects adequate perfusion. HEENT: The head is normocephalic and atraumatic. The pupils are equal and reactive. The conjunctivae are clear and without drainage. Nares are patent and without drainage. Mouth reveals moist mucous membranes and the throat is without erythema and exudate. The external ears are intact. The ear canals are patent and without drainage. The tympanic membranes are intact. Neck: the neck is supple with full range of motion and non-tender. There are no carotid bruits. There is no neck vein distension. Respiratory: Chest is non-tender. Lungs are clear to auscultation and breath sounds are symmetrical and equal. Cardiovascular: Heart is tachycardiac and irregular. There is no murmur or rub auscultated. There is peripheral edema in the distal left leg and pulses are symmetrical and equal. Abdomen: The abdomen is soft and non-tender. There are normal bowel sounds heard in all four quadrants and there is no organomegaly palpated. Musculoskeletal: There is no back tenderness noted. Extremities are non-tender with full range of motion. There is good capillary refill. There is distal swelling and erythema in the left leg. Neurological: Patient is alert and oriented to person, place and time. The patient has symmetrical motor strength in all four extremities. Cranial nerves are grossly intact. Deep tendon reflexes are symmetrical and equal in all four extremities. Psychiatric: The patient has an appropriate affect and does not exhibit any anxiety or depression. Triage Information Reviewed: Yes Vital Signs On Initial Exam: Initial Vitals Temp Pulse Resp BP Pulse Ox 97.1 F 86 14 120/88 98 09/06/17 12:03 09/06/17 12:03 09/06/17 12:03 09/06/17 12:03 09/06/17 12:03 Vital Signs Reviewed: Yes Diagnostics - Vital Signs Vital Signs Temp Pulse Resp BP Pulse Ox 09/06/17 12:30 46 27 130/52 97 09/06/17 12:20 88 20 98 09/06/17 12:18 129/63 09/06/17 12:03 97.1 F 86 14 120/88 98 - Laboratory Lab Results: Lab Results 09/06/17 09/06/17 09/06/17 Range/Units 12:59 12:59 12:59 WBC 10.2 (3.5-10.8) 10^3/ul RBC 2.89 L (4.0-5.4) 10^6/ul Hgb 8.6 L (14.0-18.0) g/dl Hct 26 L (42-52) % MCV 90 (80-94) fL MCH 30 (27-31) pg MCHC 33 (31-36) g/dl RDW 14 (10.5-15) % Plt Count 255 (150-450) 10^3/ul MPV 7.8 (7.4-10.4) um3 Neut % (Auto) 84.2 H (38-83) % Lymph % (Auto) 6.8 L (25-47) % Wolfe % (Auto) 7.1 H (0-7) % Eos % (Auto) 0.8 (0-6) % Baso % (Auto) 1.1 (0-2) % Absolute Neuts (auto) 8.6 H (1.5-7.7) 10^3/ul Absolute Lymphs (auto) 0.7 L (1.0-4.8) 10^3/ul Absolute Monos (auto) 0.7 (0-0.8) 10^3/ul Absolute Eos (auto) 0.1 (0-0.6) 10^3/ul Absolute Basos (auto) 0.1 (0-0.2) 10^3/ul Absolute Nucleated RBC 0 10^3/ul Nucleated RBC % 0.1 INR (Anticoag Therapy) (0.77-1.02) Sodium 138 L (139-145) mmol/L Potassium 5.1 H (3.5-5.0) mmol/L Chloride 103 (101-111) mmol/L Carbon Dioxide 26 (22-32) mmol/L Anion Gap 9 (2-11) mmol/L BUN 44 H (6-24) mg/dL Creatinine 0.98 (0.67-1.17) mg/dL Est GFR ( Amer) 93.3 (>60) Est GFR (Non-Af Amer) 72.5 (>60) BUN/Creatinine Ratio 44.9 H (8-20) Glucose 128 H (70-100) mg/dL Lactic Acid 1.4 (0.5-2.0) mmol/L Calcium 8.7 (8.6-10.3) mg/dL Magnesium 1.8 L (1.9-2.7) mg/dL Total Bilirubin 0.50 (0.2-1.0) mg/dL AST 13 (13-39) U/L ALT 17 (7-52) U/L Alkaline Phosphatase 63 (34-104) U/L Troponin I 0.02 (<0.04) ng/mL Total Protein 5.9 L (6.4-8.9) g/dL Albumin 3.2 (3.2-5.2) g/dL Globulin 2.7 (2-4) g/dL Albumin/Globulin Ratio 1.2 (1-3) TSH 0.70 (0.34-5.60) mcIU/mL 09/06/17 Range/Units 12:59 WBC (3.5-10.8) 10^3/ul RBC (4.0-5.4) 10^6/ul Hgb (14.0-18.0) g/dl Hct (42-52) % MCV (80-94) fL MCH (27-31) pg MCHC (31-36) g/dl RDW (10.5-15) % Plt Count (150-450) 10^3/ul MPV (7.4-10.4) um3 Neut % (Auto) (38-83) % Lymph % (Auto) (25-47) % Wolfe % (Auto) (0-7) % Eos % (Auto) (0-6) % Baso % (Auto) (0-2) % Absolute Neuts (auto) (1.5-7.7) 10^3/ul Absolute Lymphs (auto) (1.0-4.8) 10^3/ul Absolute Monos (auto) (0-0.8) 10^3/ul Absolute Eos (auto) (0-0.6) 10^3/ul Absolute Basos (auto) (0-0.2) 10^3/ul Absolute Nucleated RBC 10^3/ul Nucleated RBC % INR (Anticoag Therapy) 4.80 H (0.77-1.02) Sodium (139-145) mmol/L Potassium (3.5-5.0) mmol/L Chloride (101-111) mmol/L Carbon Dioxide (22-32) mmol/L Anion Gap (2-11) mmol/L BUN (6-24) mg/dL Creatinine (0.67-1.17) mg/dL Est GFR ( Amer) (>60) Est GFR (Non-Af Amer) (>60) BUN/Creatinine Ratio (8-20) Glucose (70-100) mg/dL Lactic Acid (0.5-2.0) mmol/L Calcium (8.6-10.3) mg/dL Magnesium (1.9-2.7) mg/dL Total Bilirubin (0.2-1.0) mg/dL AST (13-39) U/L ALT (7-52) U/L Alkaline Phosphatase (34-104) U/L Troponin I (<0.04) ng/mL Total Protein (6.4-8.9) g/dL Albumin (3.2-5.2) g/dL Globulin (2-4) g/dL Albumin/Globulin Ratio (1-3) TSH (0.34-5.60) mcIU/mL Result Diagrams: 09/06/17 17:12 09/06/17 12:59 Lab Statement: Any lab studies that have been ordered have been reviewed, and results considered in the medical decision making process. - EKG 12:43 Cardiac Rate: Tachycardia EKG Rhythm: Atrial Fibrillation - 143 BPM EKG Interpretation: aVR left axis. LAFB. GIGU Course/Dx - Course Course Of Treatment: Mr. Frederick was diagnosed with A-Fibe a few weeks ago and started on coumadin. Today he is feeling weak with exertion and has passed bloody stools at least twice. He was found to be more anemic HGB 8.6 down from 10. He was in A-Fib with RVR at 140 on arrival but hadn't taken his metoprolol this AM. He was initially treated with IV NS and his 25 mgs of metoprolol. This helped some and he is being admitted to the hospitalist service with a diagnosis of GI bleed and Afib with RVR. - Diagnoses Provider Diagnoses: GI bleeding, Atrial fibrillation with rapid ventricular response Discharge - Sign-Out/Discharge Documenting (check all that apply): Discharge - Discharge Plan Condition: Stable Disposition: ADMITTED TO [facility] Discharge Disposition Comment: The pt will be admitted to [facility] [place] [place] for continued care. - Billing Disposition and Condition Condition: STABLE Disposition: [facility] [place] [place] The documentation as recorded by the Ian archibald Natalie accurately reflects the service I personally performed and the decisions made by me, Timi Beltran MD.
[2017-09-06] MEDS: Nystatin TOP POWDER* 15 GM BTL TOPICAL SCH (20:21)
--- NOTE | 2017-09-06 22:49 | HP ---
CC: Dr. Vito Way; Dr. Cosme Duarte * HISTORY AND PHYSICAL: DATE OF ADMISSION: 09/06/17 PRIMARY CARE PROVIDER: Vito Way MD. ATTENDING PHYSICIAN: Soledad Arambula MD * (dictated by Lacey Guerin NP). CHIEF COMPLAINT: Bright red blood per rectum. HISTORY OF PRESENT ILLNESS: Mr. Medina is an 87-year-old male with past medical history significant for history of prostate cancer, hypertension, obstructive sleep apnea, hyperlipidemia, left lower extremity lymphedema, atrial fibrillation, and obesity, who presented to the emergency room with complaints of bright red blood per rectum. The patient denies any recent fevers , chills, chest pain, shortness of breath, nausea, vomiting or abdominal pain. The patient states that he was in his normal state of health until a few days ago when he was constipated and felt as though he was fully unable to pass stools. So, he manually disimpacted himself. He states that the next day he had a normal bowel movement. This morning, the patient had an emergent feeling of needing to defecate and when he went and later looked in the toilet, he noticed dark brown stool with some red in the toilet. He proceeded to go on with his day. He then again had an emergent need to use the bathroom, this time soiling himself and noted to have blood again in his stool. He was intermittently feeling lightheaded. He denied any palpitation. The patient states that he has recently been treated on antibiotics for a possible infection of his left leg. He is also following with the lymphedema clinic. He states the swelling in his legs is better in the morning and worse in the evening. He soaks his left foot in Epsom salt each morning. Due to the concern at the bright red blood in his stool, he presents to the emergency room for further evaluation. While in the emergency room, the patient was noted to have a hemoglobin of 8.6, down from 10.3 almost a year ago, and found to have an INR of 4.8, his magnesium was 1.8. He had an EKG showing possible atrial fibrillation versus sinus tachycardia. He had reported not taking his metoprolol this morning. So , he took his own metoprolol while in the emergency room. Due to the patient's bright red blood per rectum and the possibility of a GI bleed, hospitalist were asked to evaluate the patient for admission. PAST MEDICAL HISTORY: 1. Hypertension. 2. Prostate carcinoma. 3. Obstructive sleep apnea. 4. Hyperlipidemia. 5. Paroxysmal atrial fibrillation. 6. Left lower extremity lymphedema. 7. Neurofibromatosis. 8. Basal cell carcinoma of the ear. 9. Obesity. 10. Arthritis. PAST SURGICAL HISTORY: 1. Status post excision of basal cell carcinoma of bilateral ears. 2. Status post excision of lumps from his forehead. 3. Status post right total knee arthroplasty. 4. Status post bilateral inguinal hernia repairs. 5. Status post cardiac catheterization. 6. Status post excision of a neurofibromatosis from his scalp. HOME MEDICATIONS: Include: 1. Warfarin 6 mg oral daily. 2. Metoprolol succinate 25 mg oral daily. 3. PreserVision 1 tablet oral daily. 4. Flomax 0.4 mg oral daily. ALLERGIES: LIDOCAINE. FAMILY HISTORY: The patient's father passed at age 68 from a myocardial infarction. The patient's sister passed at age 70 from heart disease. He denies any family history of diabetes. He had a maternal aunt with a history of breast cancer. SOCIAL HISTORY: The patient is a former smoker. He quit smoking in 1958. Prior to that, he smoked half a pack a day for several years. The patient reports drinking a glass of wine weekly until a few weeks ago when he stopped drinking wine. He denies recreational drug use. He is retired and lives with his . His , Michelle Medina, will be his surrogate decision maker in the event that he is unable to make decisions for himself. REVIEW OF SYSTEMS: I performed an 11-point review of systems, all the pertinent positives and negatives are mentioned in the history of present illness. The remaining review of systems are negative. PHYSICAL EXAMINATION GENERAL APPEARANCE: The patient is alert, pleasant, and appears to be in no acute distress. VITAL SIGNS: Temperature 98.6, heart rate 103, respiratory rate 18, O2 sat 100 % on room air, blood pressure 117/68. HEENT: Normocephalic, atraumatic. Pupils are equal and reactive to light. Extraocular movements are intact. RESPIRATORY: There is no accessory muscle use. The lungs are clear to auscultation bilaterally. CARDIOVASCULAR: Regular rhythm. S1 and S2 present, tachycardic. There are no murmurs, rubs, or gallops heard. ABDOMEN: Soft, nontender, nondistended. There are bowel sounds present x4. EXTREMITIES: He has 1 to 2+ bilateral lower extremity edema, with the left worse than the right. DP and PT pulses are 2+ and symmetric. MUSCULOSKELETAL: There is no clubbing or cyanosis noted. The patient exhibits good strength in all extremities. NEUROLOGIC: The patient is alert and oriented x4. Cranial nerves II through XII are grossly intact. PSYCHOLOGICAL: The patient is calm and cooperative. SKIN: The patient has some chronic skin changes consistent with lymphedema. His left lower extremity is slightly warmer to the touch than his right, in addition to more edema. DIAGNOSTIC STUDIES/LABORATORY DATA: Sodium 138, potassium 5.1, chloride 103, CO2 of 26, BUN 44, creatinine 0.98, glucose is 128. Magnesium 1.8. TSH 0.70. White blood cell count 10.2, hemoglobin 8.6, hematocrit 26, platelet count 255. EKG shows sinus tach versus atrial fibrillation with a rate of 143. There are no acute signs of ischemia. This EKG is similar to the previous EKG with the exception that the previous EKG showed a sinus rhythm with a rate of 71, from 11/07/16. IMPRESSION: Mr. Medina is an 87-year-old male with past medical history significant for hypertension, prostate cancer, obstructive sleep apnea, hyperlipidemia, paroxysmal atrial fibrillation, obesity and left lower extremity lymphedema, who presented to the emergency room with complaints of bright red blood per rectum. He will be admitted as an inpatient for suspected lower GI bleed with a supratherapeutic INR. ASSESSMENT/PLAN: 1. Bright red blood per rectum: The patient denies any pain. I suspect this is either a diverticular bleed or caused from trauma of the patient disimpacting himself a few days prior. He has dropped his hemoglobin from 10.3 in October 2016, down to 8.6 today. We will trend his H and H every 6 hours. We will make sure he has [address] at all times. I will give him IV fluids. He also has a supratherapeutic INR. At that time, he will receive vitamin K. 2. Atrial fibrillation with RVR: The patient took his home metoprolol in the emergency room and his heart rate is better controlled. He is now mostly in the 100 to one-teens. We will hold his warfarin in the setting of a GI bleed. His INR is currently supratherapeutic. 3. Hypertension: The patient will be continued on his home metoprolol. 4. History of prostate cancer with BPH: The patient will be continued on Flomax. 5. Obstructive sleep apnea: The patient is untreated. 6. Obesity: The patient's BMI is greater than 30. 7. Left lower extremity lymphedema: At this point, I suspect that the patient' s redness and swelling in his leg is his chronic lymphedema. We will monitor him. He does not have an elevated white count. It was slightly warmer to touch. We will reevaluate the leg tomorrow to decide if this could potentially be a cellulitis and would consider starting him on antibiotics if the leg worsens. He is also afebrile at this time. 8. Fluids, electrolytes, and nutrition: The patient will be on a clear liquid diet. 9. Code status: Full code. 10. DVT prophylaxis: The patient is at high risk and will have SCDs only in the setting of a GI bleed. 11. Disposition: Inpatient. TIME SPENT: Time for this admission was approximately 60 minutes, greater than half of that was spent with the patient and discussing medications, past medical history, and the events leading up to their arrival today and performing my physical examination. The case has been reviewed with the attending, Dr. Arambula, who agrees with the plan of care. LACEY GUERIN, JUSTEN [id number]/CPS #: [id number] DONALD
[2017-09-07] MEDS: NS 0.9% 1000 ML* 1,000 ML IV SCH ×3 (00:11→20:59)
[2017-09-07 02:16] LABS: Hematocrit 16 % (42-52); Hemoglobin 5.2 g/dl (14.0-18.0)
[2017-09-07 03:02] LABS: Hematocrit 15 % (42-52); Hemoglobin 5.2 g/dl (14.0-18.0)
[2017-09-07 05:41] LABS: ABS Basophils 0.1 10^3/ul (0-0.2); ABS Eosinophils 0.1 10^3/ul (0-0.6); ABS Monocytes 0.6 10^3/ul (0-0.8); ABS Neutrophils 7.1 10^3/ul (1.5-7.7); ABS Nucleated RBC 0 10^3/ul; Eosinophil % 1.1 % (0-6); Hematocrit 14 % (42-52); Hemoglobin 4.8 g/dl (14.0-18.0); Mean Corpuscular HGB Conc 34 g/dl (31-36); Mean Corpuscular Hemoglobin 30 pg (27-31); Mean Corpuscular Volume 89 fL (80-94); Mean Platelet Volume 7.5 um3 (7.4-10.4); Nucleated Red Blood Cells % 0.5; Platelet Count 207 10^3/ul (150-450); Red Blood Count 1.59 10^6/ul (4.0-5.4); Red Cell Distribution Width 14 % (10.5-15); White Blood Count 8.8 10^3/ul (3.5-10.8)
[2017-09-07 05:44] LABS: INR 4.29 (0.77-1.02)
[2017-09-07] MEDS ORDERED: Phytonadione Oral Solution* 5 MG/25 ML UDC PO ONE ×2 (08:32→19:33)
--- NOTE | 2017-09-07 08:45 | PN ---
Subjective Date of Service: 09/07/17 Interval History: Patient seen and examined at bedside. Denies fever, chills, lightheadedness or dizziness, shortness of breath, chest discomfort, N/V/D. Tele: Sinus tach, rate 90-100's. Pt noted to have a few short bursts of SVT. Family History: Unchanged from Admission Social History: Unchanged from Admission Past Medical History: Unchanged from Admission Objective Active Medications: Sodium Chloride (Ns 0.9% 1000 Ml*) 1,000 mls @ 125 mls/hr IV PER RATE ANUPAM Metoprolol Succinate (Toprol Xl Tab*) 25 mg PO DAILY ANUPAM Nystatin (Nystatin Top Powder*) 1 applic TOPICAL TID ANUPAM Tamsulosin HCl (Flomax Cap*) 0.4 mg PO DAILY ANUPAM Vital Signs - 8 hr 09/07/17 09/07/17 06:06 07:17 Temperature 97.7 F Pulse Rate 89 Respiratory 18 18 Rate Blood Pressure 94/46 (mmHg) O2 Sat by Pulse 97 Oximetry Oxygen Devices in Use Now: None Appearance: NAD, laying in bed Ears/Nose/Mouth/Throat: - - Dry mucous membranes Respiratory: Symmetrical Chest Expansion and Respiratory Effort, Clear to Auscultation Cardiovascular: NL Sounds; No Murmurs; No JVD, RRR - , tachy Abdominal: NL Sounds; No Tenderness; No Distention Extremities: - - Bilateral LE edema, left greater than right. Skin: - - Erythema to left LE improved overnight Neurological: Alert and Oriented x 3, NL Muscle Strength and Tone Lines/Tubes/Other Access: Clean, Dry and Intact Peripheral IV - site benign Nutrition: Taking PO's Result Diagrams: 09/07/17 17:05 09/07/17 05:22 Additional Lab and Data: . Laboratory Tests 09/06/17 09/06/17 09/07/17 12:59 17:12 01:24 Hgb 8.6 L 7.1 L 5.2 L* Hct 26 L 21 L 16 L 09/07/17 09/07/17 02:50 05:22 Hgb 5.2 L* 4.8 L* Hct 15 L 14 L Assess/Plan/Problems-Billing Assessment: Mr. Medina is an 87 yo male with PMH significant for HTN, prostate CA, ARABELLA, HLD , P afib, obesity, and left LE lymphedema who presented to the emergency room with complaints of bright red blood per rectum. - Patient Problems (1) GI bleed Code(s): K92.2 - GASTROINTESTINAL HEMORRHAGE, UNSPECIFIED SNOMED Code(s): 09578031 Comment: - ? Upper and lower GI bleed - HH down to 4.8 this AM - BUN elevated, normal creatinine - INR supratherapeutic, will give more Vit K today - GI consult, input appreciated - Will have an EGD later today - Noted to have Orthostatsis yesterday, pulse increased > 30 - Receiving 2 units PRBCs this AM - Continue to trend HH (2) Anemia Code(s): D64.9 - ANEMIA, UNSPECIFIED SNOMED Code(s): 621421454 Comment: - Acute blood loss anemia secondary to GI bleed - Receiving 2 units of PRBCs today - Continue to trend HH (3) Supratherapeutic INR Code(s): R79.1 - ABNORMAL COAGULATION PROFILE SNOMED Code(s): 723786643 Comment: - Will give another dose of Vitamin K today - Check INR daily (4) Paroxysmal atrial fibrillation Code(s): I48.0 - PAROXYSMAL ATRIAL FIBRILLATION SNOMED Code(s): 370734809 Comment: - Sinus rhythm at this time - INR supratherapeutic, hold Warfrin - Continue metoprolol with hold parameters (5) Obesity Code(s): E66.9 - OBESITY, UNSPECIFIED SNOMED Code(s): 632439811 Comment: - BMI 31.6 (6) Lymphedema Code(s): I89.0 - LYMPHEDEMA, NOT ELSEWHERE CLASSIFIED SNOMED Code(s): 839013070 Comment: - Chronic left LE - Erythema from yesterday improved, no signs of infection (7) HTN (hypertension) Code(s): I10 - ESSENTIAL (PRIMARY) HYPERTENSION SNOMED Code(s): 68824252 Comment: - SBP 90-100's - Continue metoprolol with hold parameters (8) ARABELLA (obstructive sleep apnea) Code(s): G47.33 - OBSTRUCTIVE SLEEP APNEA (ADULT) (PEDIATRIC) SNOMED Code(s): 33494491 Comment: - Non-compliant at home, will not start CPAP while hospitalized. (9) Prostate cancer Code(s): C61 - MALIGNANT NEOPLASM OF PROSTATE SNOMED Code(s): 504755609 Comment: - History, with BPH - Continue flomax (10) DVT prophylaxis Code(s): WHE1827 - SNOMED Code(s): 548525912 Comment: - SCD's only in the setting of GI bleed (11) Full code status Code(s): Z78.9 - OTHER SPECIFIED HEALTH STATUS SNOMED Code(s): 473415368 Status and Disposition: Inpatient. Discharge to home when medically stable, suspect in 2-3 days.
[2017-09-07] MEDS ORDERED: Metoprolol Succinate XL TAB* 25 MG PO SCH (09:00)
[2017-09-07] MEDS: Nystatin TOP POWDER* 15 GM BTL TOPICAL SCH ×3 (09:44→20:41)
[2017-09-07] MEDS: Tamsulosin CAP* 0.4 MG PO SCH (09:45)
[2017-09-07] MEDS ORDERED: Pantoprazole IV* 40 MG IV SCH (10:00)
[2017-09-07 13:16] LABS: Hematocrit 15 % (42-52); Hemoglobin 5.2 g/dl (14.0-18.0)
[2017-09-07] MEDS ORDERED: Pantoprazole IV* 40 MG IV ONE (13:30)
[2017-09-07] MEDS ORDERED: fentaNYL* 50 MCG/ML 2 ML VIAL (100 MCG VIAL) ONE (15:03)
[2017-09-07] MEDS ORDERED: Midazolam* 1 MG/ML 10 ML VIAL (10 MG) ONE (15:03)
--- NOTE | 2017-09-07 16:44 | CONS ---
CONSULTATION REPORT: DATE OF CONSULT: 09/07/17 INDICATION: Bright red blood per rectum. NARRATIVE: Mr. Medina is a very pleasant 87-year-old gentleman with a history of prostate cancer, O SA, hypertension, hyperlipidemia, AFib, and obesity who states that he was recently started on Coumad in. He called it rat poison and a couple of days ago developed bright red blood per rectum. He dimas es any abdominal pain. No rectal pain. He did become constipated and pushed and strained very hard to have a bowel moment. Nothing was happening, so he decided to digitally disimpact himself and then on the next day is when he noticed blood. He states that it was bright red and dark. He was feelin g lightheaded. He came into the emergency room yesterday afternoon. The patient denies any bleeding in the past. He did have a colonoscopy in 2013 which revealed diverticulosis. He again denies any abdominal pain. PAST MEDICAL HISTORY: Hypertension, prostate cancer, ARABELLA, hyperlipidemia, AFib, edema, neurofibromat osis, ear basal cell carcinoma, obesity, and arthritis. PAST SURGICAL HISTORY: Includes skin surgeries, knee repair, hernia repair, and cardiac cath. MEDICATIONS AT HOME: Include: 1. Metoprolol. 2. Flomax. 3. Warfarin. ALLERGIES: LIDOCAINE. FAMILY HISTORY: Coronary artery disease. SOCIAL HISTORY: Denies any tobacco. Rare alcohol. REVIEW OF SYSTEMS: Twelve systems were reviewed, other than that mentioned in the HPI were unremarka ble. PHYSICAL EXAM: Temperature is 98.6. General: Chronically ill-appearing elderly male, in no apparen t distress. Alert, oriented, pleasant, fluent. HEENT: Mucous membranes are dry without lesions, ul cers, or exudate. Neck: Supple. Trachea is midline. Head is normocephalic and atraumatic. Heart: Irregular rate and rhythm. No murmurs, rubs, or gallops. Lungs: Clear to auscultation. No wheeze s, rales, or rhonchi. Abdomen: Positive bowel sounds. Soft. Nontender. Nondistended. No hepatos plenomegaly, masses, rebound, or guarding. Skin is warm and dry. DIAGNOSTIC STUDIES/LAB DATA: Of note, his hemoglobin came in at 8.6, 7.1, 5.2, 5.2, and 4.8. He is getting 2 units of blood currently. INR is 4.29. His BUN went from 44 to 58. Creatinine went from 0.98 down to 0.90. ASSESSMENT AND PLAN: This is an 87-year-old gentleman with both bright red blood per rectum and dark almost black stools. According to the patient, his hemoglobin has decreased and BUN has increased. He takes Aleve on a regular basis. At first I was thinking this was a lower GI bleed, worsened by h is INR. However, now seeing his BUN going up, I do wonder if it is an upper GI bleed. I would like to begin his evaluation with an upper endoscopy. I think we need to rule out peptic ulcer disease se condary to his nonsteroidals. He needs to have his INR held. I will start him on PPI. If the upper endoscopy is unremarkable, he may need a flex sig at some point; however, he does have diverticulosi s on a colonoscopy just three and half years ago. Further workup will be determined by his EGD. [id number]/[facility] #: [id number]
[2017-09-07 17:16] LABS: Hematocrit 15 % (42-52); Hemoglobin 5.2 g/dl (14.0-18.0)
[2017-09-07 17:56] LABS: INR 2.9 (0.77-1.02)
[2017-09-07] MEDS: Pantoprazole IV* 80 MG in NS 0.9% 250 ML* 250 ML IVPB SCH (18:24)
[2017-09-08 03:00] LABS: Hematocrit 18 % (42-52)
[2017-09-08] MEDS: Pantoprazole IV* 80 MG in NS 0.9% 250 ML* 250 ML IVPB SCH ×2 (05:00→16:07)
[2017-09-08] MEDS: NS 0.9% 1000 ML* 1,000 ML IV SCH ×2 (05:02→13:07)
[2017-09-08 06:01] LABS: ABS Basophils 0.1 10^3/ul (0-0.2); ABS Eosinophils 0.3 10^3/ul (0-0.6); ABS Lymphocytes 1.7 10^3/ul (1.0-4.8); ABS Monocytes 0.7 10^3/ul (0-0.8); ABS Neutrophils 8.4 10^3/ul (1.5-7.7); ABS Nucleated RBC 0 10^3/ul; Eosinophil % 2.9 % (0-6); Hematocrit 18 % (42-52); Hemoglobin 6.1 g/dl (14.0-18.0); Mean Corpuscular HGB Conc 34 g/dl (31-36); Mean Corpuscular Hemoglobin 30 pg (27-31); Mean Corpuscular Volume 88 fL (80-94); Mean Platelet Volume 7.5 um3 (7.4-10.4); Nucleated Red Blood Cells % 0.1; Platelet Count 202 10^3/ul (150-450); Red Blood Count 2.03 10^6/ul (4.0-5.4); Red Cell Distribution Width 15 % (10.5-15); White Blood Count 11.2 10^3/ul (3.5-10.8)
[2017-09-08 06:09] LABS: INR 1.97 (0.77-1.02)
[2017-09-08 06:14] LABS: EGFR Non-African American 89.1 (>60)
--- NOTE | 2017-09-08 06:28 | PRO ---
DATE OF PROCEDURE: 09/07/17 - ROOM #450 PROCEDURE PERFORMED: EGD. INDICATION: GI bleed. MEDICATIONS GIVEN: No fentanyl, 3 mg IV Versed. DESCRIPTION OF PROCEDURE: After the EGD procedure including the risks benefits , and alternatives, not limited to perforation, surgery and/or were explained to Mr. Medina, written consent was then obtained. IV medication was given and a bite-block was placed between the teeth. An Olympus pediatric gastroscope was then inserted into the patient's mouth, advanced down the esophagus, into the stomach, into the duodenum. In the esophagus, the mucosa appeared normal. Scope was advanced through the GE junction into the body of stomach. Retroflex view was unremarkable. Forward view also was unremarkable with the exception of a very large blood clot in the patient's antrum, I was able to roll the patient from side- to-side a little bit and move the clot. There appeared to be either a very ulcerated polyp or nodule versus an ulcer where the blood clot was attached to. I did not see any active bleeding or streaming of blood. Given the fact that the patient's INR is currently 4.38 and his hemoglobin is 5.2, I elected not to try and remove the blood clot. The scope was advanced through the pylorus and duodenal bulb. It was unremarkable, scope was then withdrawn from the patient, he tolerated the procedure well and was returned to the recovery room in stable condition. IMPRESSION: 1. Complete upper endoscopy into the duodenum. 2. A very large blood clot with ulcerated nodule versus polyp versus ulcer. 3. No signs of active bleeding. 4. The patient does need to have his INR corrected. He needs more blood and needs to have a Protonix drip started. I wrote for the Protonix drip myself. I did communicate the other recommendations to his hospitalist nurse practitioner. He needs to be watched very closely. Given his re-bleeding risk is very high, he will likely need a repeat endoscopy in the next few days to see what is underneath that large blood clot, if he does not bleed sooner. We will continue to follow him very closely. [id number]/[facility] #: [id number] [facility] DIVISIONDip[facility]
[2017-09-08] MEDS: Metoprolol Succinate XL TAB* 25 MG PO SCH (09:48)
[2017-09-08] MEDS: Nystatin TOP POWDER* 15 GM BTL TOPICAL SCH ×3 (09:48→20:14)
[2017-09-08] MEDS: Tamsulosin CAP* 0.4 MG PO SCH (09:48)
[2017-09-08] MEDS ORDERED: Phytonadione Oral Solution* 5 MG/25 ML UDC PO ONE (12:02)
--- NOTE | 2017-09-08 16:16 | PN ---
Subjective Date of Service: 09/08/17 Interval History: Patient seen and examined. States he is feeling better since transfusions, PRBCs #5 infusing now. Denies SOB, no abdominal pain, denies fever or chills. Is tired but improved from yesterday. Family History: Unchanged from Admission Social History: Unchanged from Admission Past Medical History: Unchanged from Admission Objective Active Medications: Sodium Chloride (Ns 0.9% 1000 Ml*) 1,000 mls @ 125 mls/hr IV PER RATE [facility] Last Admin: 09/08/17 13:07 Dose: 125 mls/hr Pantoprazole Sodium 80 mg/ (Sodium Chloride) 250 mls @ 25 mls/hr IVPB Q10H [facility] PRN Reason: Protocol Last Admin: 09/08/17 16:07 Dose: 25 mls/hr Metoprolol Succinate (Toprol Xl Tab*) 25 mg PO DAILY [facility] Last Admin: 09/08/17 09:48 Dose: 25 mg Nystatin (Nystatin Top Powder*) 1 applic TOPICAL TID [facility] Last Admin: 09/08/17 13:08 Dose: 1 dose Tamsulosin HCl (Flomax Cap*) 0.4 mg PO DAILY [facility] Last Admin: 09/08/17 09:48 Dose: 0.4 mg Vital Signs - 8 hr 09/08/17 11:52 Temperature 98.1 F Pulse Rate 78 Respiratory 20 Rate Blood Pressure 112/43 (mmHg) O2 Sat by Pulse 97 Oximetry Oxygen Devices in Use Now: None Appearance: Alert, NAD Eyes: No Scleral Icterus, PERRLA Ears/Nose/Mouth/Throat: Clear Oropharnyx, Mucous Membranes Moist Neck: Trachea Midline Respiratory: Symmetrical Chest Expansion and Respiratory Effort, Clear to Auscultation Cardiovascular: NL Sounds; No Murmurs; No JVD, RRR Extremities: - - baseline lymphedema LLE Skin: No Rash or Ulcers - very pale Neurological: Alert and Oriented x 3, NL Sensation, NL Gait Nutrition: Taking PO's Result Diagrams: 09/08/17 05:42 09/08/17 05:42 Additional Lab and Data: . Laboratory Tests 09/06/17 09/06/17 09/07/17 12:59 17:12 01:24 Hgb 8.6 L 7.1 L 5.2 L* Hct 26 L 21 L 16 L 09/07/17 09/07/17 02:50 05:22 Hgb 5.2 L* 4.8 L* Hct 15 L 14 L Assess/Plan/Problems-Billing Assessment: This is an 87 yo male with PMH significant for HTN, prostate CA, ARABELLA, HLD, PAF, and left LE lymphedema who presented to the emergency room with complaints of bright red blood per rectum and abdominal pain, found to have large blood clot in stomach and symptomatic anemia 2/2 bleeding. - Patient Problems (1) Anemia Code(s): D64.9 - ANEMIA, UNSPECIFIED SNOMED Code(s): 011072057 Comment: - Acute blood loss anemia secondary to GI bleed - Total of 4 units PRBCs infused, pending completion of #5 and #6 - Recheck H&H when complete - Monitor INR (2) GI bleed Code(s): K92.2 - GASTROINTESTINAL HEMORRHAGE, UNSPECIFIED SNOMED Code(s): 39209685 Comment: - S/P endoscopy, large, attached clot in stomach - Contineu protonix drip - INR supratherapeutic but trending down - Per GI, will need repeat endo when INR down - Will have an EGD later today - Noted to have Orthostatsis yesterday, pulse increased > 30 - Receiving 2 units PRBCs this AM - Continue to trend HH (3) Supratherapeutic INR Code(s): R79.1 - ABNORMAL COAGULATION PROFILE SNOMED Code(s): 576234724 Comment: - 1.97 today - S/P 3 doses vit k - Recheck INR in AM (4) HTN (hypertension) Current Visit: No Status: Acute Code(s): I10 - ESSENTIAL (PRIMARY) HYPERTENSION SNOMED Code(s): 57541381 Comment: - Hypotension resolving with transfusions - Continue metoprolol with hold parameters (5) Status post total knee replacement, right Code(s): Z96.651 - PRESENCE OF RIGHT ARTIFICIAL KNEE JOINT SNOMED Code(s): 9359547238947 Comment: - Per patient, was taking Aleve in large quantities 2/2 ongoing joint pain which may likely be the etiology of his current GI issues (6) Lymphedema Code(s): I89.0 - LYMPHEDEMA, NOT ELSEWHERE CLASSIFIED SNOMED Code(s): 776752502 Comment: - Chronic left LE - Erythema improved, no signs of infection (7) ARABELLA (obstructive sleep apnea) Code(s): G47.33 - OBSTRUCTIVE SLEEP APNEA (ADULT) (PEDIATRIC) SNOMED Code(s): 48902444 Comment: - Non-compliant at home, monitor resp status - May consider initiating hospital CPAP if needed. (8) DVT prophylaxis Code(s): XMQ6941 - SNOMED Code(s): 233955944 Comment: - SCD's only in the setting of GI bleed (9) Full code status Code(s): Z78.9 - OTHER SPECIFIED HEALTH STATUS SNOMED Code(s): 082817014 Status and Disposition: Remain inpatient, pending additional endoscopy, transfusions and stabilization.
[2017-09-08 17:03] LABS: Hematocrit 20 % (42-52); Hemoglobin 6.9 g/dl (14.0-18.0)
--- NOTE | 2017-09-08 23:47 | PN ---
GASTROENTEROLOGY PROGRESS NOTE: DATE OF ADMISSION: 09/08/17 HISTORY OF PRESENT ILLNESS: Mr. Medina has no complaints today. He states that he feels well. He did come in yesterday with melena and did undergo upper endoscopy. His hematocrit on admission was 15. He is on Coumadin. His INR was 4.3. The patient has received 4 units of packed red blood cells. Followup hematocrit is pending. He has passed no further blood overnight or today. He is on IV pantoprazole drip. He did under upper endoscopy with Dr. Owen yesterday, which did reveal a large clot in the antrum, which was either ulcerated polyp or nodule versus ulcer. The clot was attached and given the elevated INR was not removed. PHYSICAL EXAMINATION: Temperature 98.1, heart rate 78, blood pressure 112/43, O2 sat 97% on room air. Heart: Irregular rate and rhythm. Lungs: Clear. PERTINENT LABORATORY STUDIES: Include a 5 a.m. this morning hematocrit of 18 after receiving 2 units of packed red blood cells. He is ordered for 1 additional unit, although his hematocrit has not been checked since this morning at 5 a.m. The patient feels well, has no complaints. RECOMMENDATIONS: I suspect the patient has stopped bleeding given the absence of any melena or rectal bleeding and I suspect his hematocrit is significantly higher than 18. He is scheduled to be rechecked with a CBC at 5 p.m. today. If there is any further significant suggestion of bleeding, we will plan upper endoscopy tomorrow morning. The patient will require endoscopy at some point in the next few days even without any signs of active ongoing bleeding to assess the area in question in the antrum as he will need to be put back on Coumadin. Coumadin should continue to be held at this time. The patient is on a clear liquid diet, which may be continued. [id number]/[facility] #: [id number] [facility] SYSTEMDipesh
[2017-09-08] MEDS ORDERED: Metoprolol Tartrate IV* 1 MG/ML 5 ML VIAL IV ONE (23:59)
[2017-09-09] MEDS: NS 0.9% 1000 ML* 1,000 ML IV SCH ×3 (02:27→19:43)
[2017-09-09] MEDS: Pantoprazole IV* 80 MG in NS 0.9% 250 ML* 250 ML IVPB SCH ×4 (03:27→23:17)
[2017-09-09 07:23] LABS: Hematocrit 20 % (42-52); Hemoglobin 6.7 g/dl (14.0-18.0)
[2017-09-09 08:03] LABS: INR 1.25 (0.77-1.02)
[2017-09-09] MEDS: Nystatin TOP POWDER* 15 GM BTL TOPICAL SCH ×3 (08:37→20:08)
[2017-09-09] MEDS: Metoprolol Succinate XL TAB* 25 MG PO SCH (08:38)
[2017-09-09] MEDS: Tamsulosin CAP* 0.4 MG PO SCH (08:38)
--- NOTE | 2017-09-09 11:22 | PN ---
Subjective Date of Service: 09/09/17 Interval History: Patient seen and examined. States he is overall improving. Had trouble with ambulating and had PT eval this am. Denies SOB, no chest pain, no palpitations. HR has been increasing since last night. Had IV lopressor overnight. HR remains in 110s-120s. BP low/stable. Family History: Unchanged from Admission Social History: Unchanged from Admission Past Medical History: Unchanged from Admission Objective Active Medications: Diltiazem HCl (Cardizem Cd Cap*) 120 mg PO DAILY [facility] Sodium Chloride (Ns 0.9% 1000 Ml*) 1,000 mls @ 125 mls/hr IV PER RATE [facility] Last Admin: 09/09/17 10:44 Dose: 125 mls/hr Pantoprazole Sodium 80 mg/ (Sodium Chloride) 250 mls @ 25 mls/hr IVPB Q10H [facility] PRN Reason: Protocol Last Admin: 09/09/17 03:27 Dose: 25 mls/hr Metoprolol Succinate (Toprol Xl Tab*) 25 mg PO DAILY [facility] Last Admin: 09/09/17 08:38 Dose: 25 mg Nystatin (Nystatin Top Powder*) 1 applic TOPICAL TID [facility] Last Admin: 09/09/17 08:37 Dose: 1 dose Tamsulosin HCl (Flomax Cap*) 0.4 mg PO DAILY [facility] Last Admin: 09/09/17 08:38 Dose: 0.4 mg Vital Signs - 8 hr 09/09/17 09/09/17 09/09/17 03:48 07:32 08:00 Temperature 98.9 F 98.1 F Pulse Rate 121 123 Respiratory 16 20 20 Rate Blood Pressure 114/55 126/69 (mmHg) O2 Sat by Pulse 99 96 Oximetry Oxygen Devices in Use Now: None Appearance: Pale, Alert, NAD Ears/Nose/Mouth/Throat: NL Teeth, Lips, Gums Neck: Trachea Midline Respiratory: Symmetrical Chest Expansion and Respiratory Effort, Clear to Auscultation Cardiovascular: NL Sounds; No Murmurs; No JVD, - - irregular, tachy Abdominal: NL Sounds; No Tenderness; No Distention Extremities: - - LLE edema, at baseline Skin: No Rash or Ulcers Neurological: Alert and Oriented x 3 Nutrition: - - clears, tolerating Result Diagrams: 09/09/17 07:08 09/08/17 05:42 Additional Lab and Data: . Laboratory Tests 09/06/17 09/06/17 09/07/17 12:59 17:12 01:24 Hgb 8.6 L 7.1 L 5.2 L* Hct 26 L 21 L 16 L 09/07/17 09/07/17 02:50 05:22 Hgb 5.2 L* 4.8 L* Hct 15 L 14 L Assess/Plan/Problems-Billing Assessment: This is an 87 yo male with PMH significant for HTN, prostate CA, ARABELLA, HLD, PAF, and left LE lymphedema who presented to the emergency room with complaints of bright red blood per rectum and abdominal pain, found to have large blood clot in stomach and symptomatic anemia 2/2 bleeding. - Patient Problems (1) Anemia Code(s): D64.9 - ANEMIA, UNSPECIFIED SNOMED Code(s): 909839115 Comment: - Acute blood loss anemia secondary to GI bleed - Total of 6 units PRBCs infused, H&H 6.7 today - INR <1.5, continue to hold coumadin (2) GI bleed Code(s): K92.2 - GASTROINTESTINAL HEMORRHAGE, UNSPECIFIED SNOMED Code(s): 98523058 Comment: - S/P endoscopy, large, attached clot in stomach - Plan for repeat endo today to address clot and ulcer/polyp? - Continue protonix drip - INR supratherapeutic but trending down (3) Atrial fibrillation with rapid ventricular response Code(s): I48.91 - UNSPECIFIED ATRIAL FIBRILLATION SNOMED Code(s): 601938426812001 Comment: - Paroxysmal in nature, likely precipitated by profound anemia - Had IV lopressor last night, but pressure remains lower than normal - Will trial PO cardizem this am, would prefer not to lower BP too much given that he will have anesthesia for endo today. - continue tele (4) Supratherapeutic INR Code(s): R79.1 - ABNORMAL COAGULATION PROFILE SNOMED Code(s): 819333519 Comment: - 1.24 today - S/P 3 doses vit k - Stable for endo today (5) HTN (hypertension) Current Visit: No Status: Acute Code(s): I10 - ESSENTIAL (PRIMARY) HYPERTENSION SNOMED Code(s): 87726800 Comment: - Hypotension resolving with transfusions - Continue metoprolol with hold parameters (6) Status post total knee replacement, right Code(s): Z96.651 - PRESENCE OF RIGHT ARTIFICIAL KNEE JOINT SNOMED Code(s): 6269704777070 Comment: - Per patient, was taking Aleve in large quantities 2/2 ongoing joint pain which may likely be the etiology of his current GI issues (7) Lymphedema Code(s): I89.0 - LYMPHEDEMA, NOT ELSEWHERE CLASSIFIED SNOMED Code(s): 472089667 Comment: - Chronic left LE - Erythema improved, no signs of infection (8) ARABELLA (obstructive sleep apnea) Code(s): G47.33 - OBSTRUCTIVE SLEEP APNEA (ADULT) (PEDIATRIC) SNOMED Code(s): 22452178 Comment: - Non-compliant at home, monitor resp status - May consider initiating hospital CPAP if needed. (9) DVT prophylaxis Code(s): FCY6014 - SNOMED Code(s): 114494960 Comment: - SCD's only in the setting of GI bleed (10) Full code status Code(s): Z78.9 - OTHER SPECIFIED HEALTH STATUS SNOMED Code(s): 109344055 Status and Disposition: Remain inpatient, pending endo today.
[2017-09-09] MEDS ORDERED: Diltiazem CD CAP* 120 MG PO SCH (12:00)
[2017-09-09] MEDS ORDERED: Diltiazem IV* 5 MG/ML 5 ML VIAL (for loading dose/IV Push) (25 MG) IV SLOW PU ONE ×2 (14:00→18:30)
[2017-09-09] MEDS: Diazepam TAB(*) 5 MG PO PRN (14:50)
[2017-09-09] MEDS ORDERED: Diltiazem IV VIAL* 125 MG in NS 0.9% 100 ML* 100 ML IV SCH (18:00)
--- NOTE | 2017-09-09 19:58 | PN ---
Progress Note - Progress Note Date of Service: 09/09/17 - Gastroenterology Note: Patient seen and examined. Heart rate increased overnight. Lopressor IV given to patient. HR was in the 130s in am and in A.fib. Given Cardizem po and IV to decrease HR today. No melena/bright red blood per rectum. No abdominal pain. No nausea/emesis. Tolerating clear liquid diet. Vital Signs: Temp Pulse Resp BP Pulse Ox 98.5 F 118 20 111/58 96 09/09/17 16:25 09/09/17 18:33 09/09/17 17:00 09/09/17 18:33 09/09/17 16:25 Physical examination: GENERAL: NAD. CV: IRR. PULM: CTAB. ABDOMEN: soft, NT/ND. Laboratory Results - last 24 hr 09/07/17 09/09/17 09/09/17 01:24 07:08 07:08 Hgb 6.7 L Hct 20 L INR (Anticoag Therapy) 1.25 H Blood Type AB Positive Antibody Screen Negative Antibody Identification Cancelled Antigen Identification A1 Antigen - NEGATIVE Direct Antiglob Test Cancelled Crossmatch See Detail A/P: 87 yo male with Afib on coumadin came in with supratherapuetic INR and recent use of Aleve. Coumadin is on hold and given Vitamin K. INR is now 1.25. Went into A.fib with tachycardia overnight. On Cardizem po now. He was given one dose of IV cardizem. Hemodymically stable. No rectal bleeding. Receiving 2 units of O+ prbcs tonight for persistent anemia. 1. Melena with UGIB - improving. ~Likely NSAID-induced with recent use of Aleve in the setting of anticoagulation. ~Emergent EGD earlier this week revealed a blood clot in the stomach with possible underlying ulcer vs polyp. Needs a repeat EGD to re-evaluate when stable. ~On Protonix gtt. ~Clear liquids. NPO after midnight. ~EGD was placed on hold today due to patient developing A.fib with RVR and HR in 130s. Patient was hemodymically stable but needed to medically optimized before repeat EGD. ~Plan for EGD with Dr. Conde tomorrow if stable. 2. Acute blood loss anemia s/p 6 units of prbcs - unchanged. ~Receiving 2 units O+ positive blood tonight. ~Monitor H/H in AM. 3. Coagulopathy ~S/p Vitamin K. ~INR 1.25 today. ~Coumadin on hold. 4. A.fib with RVR ~Was started on po cardizem today. D/w Fallon Muir NP. Skylar Banegas D.O.
[2017-09-10 03:17] LABS: Hematocrit 22 % (42-52); Hemoglobin 7.4 g/dl (14.0-18.0)
[2017-09-10] MEDS: Pantoprazole IV* 80 MG in NS 0.9% 250 ML* 250 ML IVPB SCH ×3 (04:32→16:21)
[2017-09-10] MEDS: NS 0.9% 1000 ML* 1,000 ML IV SCH ×2 (04:34→17:50)
[2017-09-10 05:16] LABS: Hematocrit 22 % (42-52); Hemoglobin 7.5 g/dl (14.0-18.0)
[2017-09-10 05:23] LABS: INR 1.1 (0.77-1.02)
[2017-09-10] MEDS: Tamsulosin CAP* 0.4 MG PO SCH (09:03)
[2017-09-10] MEDS: Nystatin TOP POWDER* 15 GM BTL TOPICAL SCH ×3 (09:03→20:44)
[2017-09-10] MEDS: Metoprolol Succinate XL TAB* 25 MG PO SCH (09:03)
[2017-09-10] MEDS ORDERED: Metoprolol Tartrate IV* 1 MG/ML 5 ML VIAL IV PRN (10:05)
[2017-09-10] MEDS ORDERED: Diltiazem IV VIAL* 125 MG in NS 0.9% 100 ML* 100 ML IV SCH ×2 (11:00→13:27)
[2017-09-10] MEDS ORDERED: hydrALAZINE IV* 20 MG/ML VIAL IV SLOW PU PRN (12:04)
--- NOTE | 2017-09-10 14:19 | PN ---
Subjective Date of Service: 09/10/17 Interval History: Patient seen and examined. Cardizem drip was stopped overnight, patient with RVR again this am. Cardizem restarted, hydralizine for HTN. Patient states no pain, no SOB, no chest pain or dizziness. Family History: Unchanged from Admission Social History: Unchanged from Admission Past Medical History: Unchanged from Admission Objective Active Medications: Diazepam (Valium Tab(*)) 5 mg PO Q8H PRN PRN Reason: spasm Last Admin: 09/09/17 14:50 Dose: 5 mg Hydralazine HCl (Apresoline Iv*) 5 mg IV SLOW PU Q6H PRN PRN Reason: DBP>90 Last Admin: 09/10/17 12:34 Dose: 5 mg Pantoprazole Sodium 80 mg/ (Sodium Chloride) 250 mls @ 25 mls/hr IVPB Q10H ANUPAM PRN Reason: Protocol Last Admin: 09/10/17 10:23 Dose: 25 mls/hr Diltiazem HCl 125 mg/ Sodium (Chloride) 125 mls @ 10 mls/hr IV .INITIAL RATE [facility] Last Admin: 09/10/17 13:43 Dose: 10 mls/hr Metoprolol Succinate (Toprol Xl Tab*) 50 mg PO DAILY [facility] Nystatin (Nystatin Top Powder*) 1 applic TOPICAL TID [facility] Last Admin: 09/10/17 09:03 Dose: 1 dose Tamsulosin HCl (Flomax Cap*) 0.4 mg PO DAILY [facility] Last Admin: 09/10/17 09:03 Dose: 0.4 mg Vital Signs - 8 hr 09/10/17 09/10/17 09/10/17 07:17 07:40 08:24 Temperature 98.6 F Pulse Rate 102 Respiratory 20 Rate Blood Pressure 167/103 160/96 (mmHg) O2 Sat by Pulse 95 Oximetry 09/10/17 09/10/17 09/10/17 08:32 08:40 08:44 Temperature Pulse Rate Respiratory Rate Blood Pressure 143/90 168/85 160/106 (mmHg) O2 Sat by Pulse Oximetry 09/10/17 09/10/17 09/10/17 09:40 10:39 10:50 Temperature Pulse Rate Respiratory Rate Blood Pressure 174/103 158/117 166/104 (mmHg) O2 Sat by Pulse Oximetry 09/10/17 09/10/1718 10:55 10:57 11:00 Temperature Pulse Rate Respiratory Rate Blood Pressure 181/128 158/119 164/101 (mmHg) O2 Sat by Pulse Oximetry 09/10/17 09/10/17 09/10/17 11:04 11:05 11:10 Temperature 98.7 F Pulse Rate 119 Respiratory 22 Rate Blood Pressure 163/114 169/109 (mmHg) O2 Sat by Pulse 95 Oximetry 09/10/17 09/10/17 09/10/17 11:15 11:20 11:25 Temperature Pulse Rate Respiratory Rate Blood Pressure 163/93 154/104 148/102 (mmHg) O2 Sat by Pulse Oximetry 09/10/17 09/10/17 09/10/17 11:30 11:35 11:40 Temperature Pulse Rate Respiratory Rate Blood Pressure 165/101 165/105 149/100 (mmHg) O2 Sat by Pulse Oximetry 09/10/17 09/10/17 09/10/17 11:42 11:45 11:50 Temperature Pulse Rate Respiratory Rate Blood Pressure 171/99 175/115 171/100 (mmHg) O2 Sat by Pulse Oximetry 09/10/17 09/10/17 09/10/17 11:55 12:00 12:05 Temperature Pulse Rate Respiratory Rate Blood Pressure 153/100 162/103 171/106 (mmHg) O2 Sat by Pulse Oximetry 09/10/17 09/10/17 09/10/17 12:10 12:16 12:20 Temperature Pulse Rate Respiratory Rate Blood Pressure 155/113 171/91 181/111 (mmHg) O2 Sat by Pulse Oximetry 09/10/17 09/10/17 09/10/17 12:25 12:30 12:35 Temperature Pulse Rate Respiratory Rate Blood Pressure 154/110 172/105 169/115 (mmHg) O2 Sat by Pulse Oximetry 09/10/17 09/10/17 09/10/17 12:40 12:45 12:49 Temperature Pulse Rate Respiratory Rate Blood Pressure 178/111 186/112 174/102 (mmHg) O2 Sat by Pulse Oximetry 09/10/17 09/10/17 09/10/17 13:15 13:45 13:50 Temperature Pulse Rate Respiratory Rate Blood Pressure 143/104 166/107 180/101 (mmHg) O2 Sat by Pulse Oximetry 09/10/17 09/10/17 13:55 14:00 Temperature Pulse Rate Respiratory Rate Blood Pressure 162/98 162/104 (mmHg) O2 Sat by Pulse Oximetry Oxygen Devices in Use Now: None Appearance: Alert, NAD Ears/Nose/Mouth/Throat: Clear Oropharnyx, Mucous Membranes Moist Neck: NL Appearance and Movements; NL JVP, Trachea Midline Respiratory: Symmetrical Chest Expansion and Respiratory Effort, Clear to Auscultation Cardiovascular: NL Sounds; No Murmurs; No JVD, RRR Abdominal: NL Sounds; No Tenderness; No Distention Extremities: - - LLE edema at baseline Neurological: Alert and Oriented x 3, - - general weakness Nutrition: Taking PO's, - - was NPO for procedure, tolerating clears prior to Result Diagrams: 09/10/17 05:01 09/08/17 05:42 Additional Lab and Data: . Laboratory Tests 09/06/17 09/06/17 09/07/17 12:59 17:12 01:24 Hgb 8.6 L 7.1 L 5.2 L* Hct 26 L 21 L 16 L 09/07/17 09/07/17 02:50 05:22 Hgb 5.2 L* 4.8 L* Hct 15 L 14 L Assess/Plan/Problems-Billing Assessment: This is an 87 yo male with PMH significant for HTN, prostate CA, ARABELLA, HLD, PAF, and left LE lymphedema who presented to the emergency room with complaints of bright red blood per rectum and abdominal pain, found to have large blood clot in stomach and symptomatic anemia 2/2 bleeding. - Patient Problems (1) Anemia Code(s): D64.9 - ANEMIA, UNSPECIFIED SNOMED Code(s): 582973170 Comment: - Acute blood loss anemia secondary to GI bleed - Total of 8 units PRBCs transfused - INR <1.5, continue to hold coumadin (2) GI bleed Code(s): K92.2 - GASTROINTESTINAL HEMORRHAGE, UNSPECIFIED SNOMED Code(s): 41567440 Comment: - S/P endoscopy, large, attached clot in stomach - Plan for repeat endo cancelled 2/2 increased HR overnight - Continue protonix drip - INR stable, continue to hold coumadin (3) Atrial fibrillation with rapid ventricular response Code(s): I48.91 - UNSPECIFIED ATRIAL FIBRILLATION SNOMED Code(s): 331470191277241 Comment: - Had cardizem IVP and drip at 5mg/hr which was DCd overnight. - Restarted today and increased to 10mg/hr - continue tele (4) Supratherapeutic INR Code(s): R79.1 - ABNORMAL COAGULATION PROFILE SNOMED Code(s): 537719534 Comment: - 1.24 today - S/P 3 doses vit k - Stable for endo which will now likely happen tomorrow (5) HTN (hypertension) Current Visit: No Status: Acute Code(s): I10 - ESSENTIAL (PRIMARY) HYPERTENSION SNOMED Code(s): 74201352 Comment: - Increase metoprolol, added hydralazine and restart lisinopril (6) Status post total knee replacement, right Code(s): Z96.651 - PRESENCE OF RIGHT ARTIFICIAL KNEE JOINT SNOMED Code(s): 6853462245227 Comment: - Per patient, was taking Aleve in large quantities 2/2 ongoing joint pain which may likely be the etiology of his current GI issues (7) Lymphedema Code(s): I89.0 - LYMPHEDEMA, NOT ELSEWHERE CLASSIFIED SNOMED Code(s): 257163910 Comment: - Chronic left LE - Erythema improved, no signs of infection (8) ARABELLA (obstructive sleep apnea) Code(s): G47.33 - OBSTRUCTIVE SLEEP APNEA (ADULT) (PEDIATRIC) SNOMED Code(s): 09918499 Comment: - Non-compliant at home, monitor resp status - May consider initiating hospital CPAP if needed. (9) DVT prophylaxis Code(s): GLO4993 - SNOMED Code(s): 223869485 Comment: - SCD's only in the setting of GI bleed (10) Full code status Code(s): Z78.9 - OTHER SPECIFIED HEALTH STATUS SNOMED Code(s): 717661749 Status and Disposition: Remain inpatient, pending endo postponed until tomorrow.
[2017-09-10] MEDS: Lisinopril TAB* 10 MG PO SCH (14:53)
[2017-09-10] MEDS ORDERED: NS 0.9% 500 ML* 500 ML IV ONE (17:30)
[2017-09-10] MEDS ORDERED: Digoxin IV* 0.5 MG/2 ML AMP (0.25 MG/ML) IV SLOW PU ONE ×2 (17:54→23:56)
[2017-09-10 18:40] LABS: Hematocrit 29 % (42-52); Hemoglobin 9.6 g/dl (14.0-18.0); Mean Corpuscular HGB Conc 34 g/dl (31-36); Mean Corpuscular Hemoglobin 30 pg (27-31); Mean Corpuscular Volume 90 fL (80-94); Mean Platelet Volume 7.5 um3 (7.4-10.4); Platelet Count 230 10^3/ul (150-450); Red Blood Count 3.17 10^6/ul (4.0-5.4); Red Cell Distribution Width 16 % (10.5-15); White Blood Count 10.8 10^3/ul (3.5-10.8)
[2017-09-10 18:51] LABS: ABS Basophils 0.1 10^3/ul (0-0.2); ABS Eosinophils 0.4 10^3/ul (0-0.6); ABS Lymphocytes 1.4 10^3/ul (1.0-4.8); ABS Monocytes 0.5 10^3/ul (0-0.8); ABS Neutrophils 8.5 10^3/ul (1.5-7.7); ABS Nucleated RBC 0.1 10^3/ul; Eosinophil % 3.3 % (0-6); Lymphocyte % 12.5 % (25-47); Nucleated Red Blood Cells % 0.6
[2017-09-10 19:25] LABS: Monocytes % 1 % (0-7)
--- NOTE | 2017-09-10 22:00 | PN ---
CC: GASTROENTEROLOGY PROGRESS NOTE: DATE OF VISIT: 09/10/17 HISTORY: Mr. Medina has now received O positive blood as it was felt he was having some antibody reaction to the previous blood transfusions. He is feeling well without complaints. As you are aware, he did develop rapid atrial fibrillation night before last and did not undergo planned endoscopy yesterday. I have discussed the case with Dr. Muir today. The patient is on a Cardizem drip; however, his heart rate is ranging anywhere from 90 to 130, currently at 2 p.m. was 130. His blood pressure remains a bit high. An endoscopy was planned to be performed today. However, this will be postponed until his heart rate is better managed and likely will be able to take place tomorrow. I will place the patient on full liquid diet and n.p.o. after midnight. He should continue on pantoprazole drip. [id number]/[facility] #: [id number] DONALD
[2017-09-11 05:40] LABS: INR 1.07 (0.77-1.02)
[2017-09-11] MEDS ORDERED: Digoxin IV* 0.5 MG/2 ML AMP (0.25 MG/ML) IV SLOW PU ONE (05:56)
[2017-09-11] MEDS: Pantoprazole IV* 80 MG in NS 0.9% 250 ML* 250 ML IVPB SCH ×2 (06:06→22:42)
[2017-09-11] MEDS: NS 0.9% 1000 ML* 1,000 ML IV SCH (07:52)
[2017-09-11] MEDS: Nystatin TOP POWDER* 15 GM BTL TOPICAL SCH ×3 (08:30→20:15)
[2017-09-11] MEDS: Tamsulosin CAP* 0.4 MG PO SCH (09:06)
[2017-09-11] MEDS: Metoprolol Succinate XL TAB* 50 MG PO SCH (09:06)
[2017-09-11] MEDS: Lisinopril TAB* 10 MG PO SCH (09:06)
[2017-09-11] MEDS ORDERED: Midazolam* 1 MG/ML 5 ML VIAL (5 MG) ONE (15:59)
[2017-09-11] MEDS ORDERED: fentaNYL* 50 MCG/ML 2 ML VIAL (100 MCG VIAL) ONE (15:59)
--- NOTE | 2017-09-11 16:46 | PN ---
Subjective Date of Service: 09/11/17 Interval History: PAtient seen and examined. Resting comfortably in ICU, HR controlled now, off cardizem. Had Digoxin loading overnight with good effect. BP stable, HgB stable. Pending endoscopy this afternoon. Per RN, patient has had significant dribbling and urgency of urine and some retention approx 500ml by bladder scan. Family History: Unchanged from Admission Social History: Unchanged from Admission Past Medical History: Unchanged from Admission Objective Active Medications: Diazepam (Valium Tab(*)) 5 mg PO Q8H PRN PRN Reason: spasm Last Admin: 09/09/17 14:50 Dose: 5 mg Hydralazine HCl (Apresoline Iv*) 5 mg IV SLOW PU Q6H PRN PRN Reason: DBP>90 Last Admin: 09/10/17 12:34 Dose: 5 mg Pantoprazole Sodium 80 mg/ (Sodium Chloride) 250 mls @ 25 mls/hr IVPB Q10H ANUPAM PRN Reason: Protocol Last Admin: 09/11/17 06:06 Dose: 25 mls/hr Sodium Chloride (Ns 0.9% 1000 Ml*) 1,000 mls @ 75 mls/hr IV PER RATE [facility] Last Admin: 09/11/17 07:52 Dose: 75 mls/hr Lisinopril (Prinivil Tab*) 10 mg PO DAILY [facility] Last Admin: 09/11/17 09:06 Dose: 10 mg Metoprolol Succinate (Toprol Xl Tab*) 50 mg PO DAILY [facility] Last Admin: 09/11/17 09:06 Dose: 50 mg Nystatin (Nystatin Top Powder*) 1 applic TOPICAL TID [facility] Last Admin: 09/11/17 15:31 Dose: Not Given Tamsulosin HCl (Flomax Cap*) 0.4 mg PO DAILY [facility] Last Admin: 09/11/17 09:06 Dose: 0.4 mg Vital Signs - 8 hr 09/11/17 09/11/17 09/11/17 09:00 10:00 11:00 Temperature Pulse Rate 98 93 86 Respiratory 19 19 21 Rate Blood Pressure 139/73 130/74 136/79 (mmHg) O2 Sat by Pulse 97 97 98 Oximetry 09/11/17 09/11/17 09/11/17 12:00 12:18 13:00 Temperature 98.5 F Pulse Rate 77 92 Respiratory 20 23 Rate Blood Pressure 124/70 129/64 (mmHg) O2 Sat by Pulse 97 98 Oximetry 09/11/17 09/11/17 09/11/17 14:00 15:00 15:40 Temperature 99.4 F Pulse Rate 102 108 Respiratory 25 25 Rate Blood Pressure 135/72 154/99 (mmHg) O2 Sat by Pulse 97 97 Oximetry 09/11/17 09/11/17 15:57 16:00 Temperature Pulse Rate 95 Respiratory 21 21 Rate Blood Pressure (mmHg) O2 Sat by Pulse 96 Oximetry Oxygen Devices in Use Now: Nasal Cannula Appearance: Alert, NAD Eyes: No Scleral Icterus, PERRLA Ears/Nose/Mouth/Throat: Mucous Membranes Moist Neck: NL Appearance and Movements; NL JVP, Trachea Midline Respiratory: Symmetrical Chest Expansion and Respiratory Effort, Clear to Auscultation Cardiovascular: - - afib with controlled ventricular response, rate 80s Abdominal: NL Sounds; No Tenderness; No Distention Extremities: - - LLE edema at baseline Neurological: Alert and Oriented x 3, - - general weakness Nutrition: - - NPO for procedure Result Diagrams: 09/10/17 18:33 09/08/17 05:42 Additional Lab and Data: . Laboratory Tests 09/06/17 09/06/17 09/07/17 12:59 17:12 01:24 Hgb 8.6 L 7.1 L 5.2 L* Hct 26 L 21 L 16 L 09/07/17 09/07/17 02:50 05:22 Hgb 5.2 L* 4.8 L* Hct 15 L 14 L Microbiology and Other Data: Microbiology 09/10/17 20:40 Nasal Screen MRSA (PCR)(VIKKI) - Final Nasal Mrsa Not Detected 09/10/17 18:17 Stool Occult Blood (VIKKI) - Final Stool Assess/Plan/Problems-Billing Assessment: This is an 87 yo male with PMH significant for HTN, prostate CA, ARABELLA, HLD, PAF, and left LE lymphedema who presented to the emergency room with complaints of bright red blood per rectum and abdominal pain, found to have large blood clot in stomach and symptomatic anemia 2/2 bleeding and atrial fib with RVR. - Patient Problems (1) Anemia Code(s): D64.9 - ANEMIA, UNSPECIFIED SNOMED Code(s): 607219140 Comment: - Acute blood loss anemia secondary to GI bleed - Total of 8 units PRBCs transfused - INR <1.5, continue to hold coumadin - H&H 9.11/27 (2) GI bleed Code(s): K92.2 - GASTROINTESTINAL HEMORRHAGE, UNSPECIFIED SNOMED Code(s): 13153627 Comment: - S/P endoscopy, large, attached clot in stomach - Repeat endo today - Continue protonix drip - INR stable, continue to hold coumadin (3) Atrial fibrillation with rapid ventricular response Code(s): I48.91 - UNSPECIFIED ATRIAL FIBRILLATION SNOMED Code(s): 048113654160274 Comment: - Had hypotension on cardizem drip - Changed to digoxin with good effect - BP and HR stable - Would recommend PO digoxin to start tomorrow (4) Supratherapeutic INR Code(s): R79.1 - ABNORMAL COAGULATION PROFILE SNOMED Code(s): 544006250 Comment: - 1.07 today - S/P 3 doses vit k and 8 units PRBCs - Given seriousness of GI bleeding, would recommend against AC with coumadin moving forward and continue with rate control only (5) HTN (hypertension) Current Visit: No Status: Acute Code(s): I10 - ESSENTIAL (PRIMARY) HYPERTENSION SNOMED Code(s): 95161651 Comment: - hypotension resolved, continue home meds (6) Status post total knee replacement, right Code(s): Z96.651 - PRESENCE OF RIGHT ARTIFICIAL KNEE JOINT SNOMED Code(s): 3242850647108 Comment: - Per patient, was taking Aleve in large quantities 2/2 ongoing joint pain which may likely be the etiology of his current GI issues - PT eval (7) Lymphedema Code(s): I89.0 - LYMPHEDEMA, NOT ELSEWHERE CLASSIFIED SNOMED Code(s): 257460913 Comment: - Chronic left LE - Erythema improved, no signs of infection (8) ARABELLA (obstructive sleep apnea) Code(s): G47.33 - OBSTRUCTIVE SLEEP APNEA (ADULT) (PEDIATRIC) SNOMED Code(s): 91859598 Comment: - Non-compliant at home, monitor resp status - May consider initiating hospital CPAP if needed. (9) DVT prophylaxis Code(s): NVE3978 - SNOMED Code(s): 306520943 Comment: - SCD's only in the setting of GI bleed (10) Full code status Code(s): Z78.9 - OTHER SPECIFIED HEALTH STATUS SNOMED Code(s): 156522397 Status and Disposition: Remain inpatient, pending results of endo. DC to [facility] when clear.
--- NOTE | 2017-09-11 18:04 | PN ---
Progress Note - Progress Note Date of Service: 09/11/17 - Gastroenterology Note: Patient seen and examined. Transferred to ICU overnight due to A.fib. Passed black liquid when he had a full liquid diet last night which was likely old blood. No further overnight issues. A.fib is rate controlled now. Vital Signs: Temp Pulse Resp BP Pulse Ox 99.4 F 95 21 154/99 96 09/11/17 15:40 09/11/17 16:00 09/11/17 16:00 09/11/17 15:00 09/11/17 16:00 Physical examination: GENERAL: NAD. CV: Irregular rhythm, regular rate. PULM: CTAB. ABDOMEN: Soft, NT/ND. Laboratory Results - last 24 hr 09/10/17 09/11/17 18:33 05:19 WBC 10.8 RBC 3.17 L Hgb 9.6 L Hct 29 L MCV 90 MCH 30 MCHC 34 RDW 16 H Plt Count 230 MPV 7.5 Neut % (Auto) 78.1 Lymph % (Auto) 12.5 L Eddy % (Auto) 5.0 Eos % (Auto) 3.3 Baso % (Auto) 1.1 Absolute Neuts (auto) 8.5 H Absolute Lymphs (auto) 1.4 Absolute Monos (auto) 0.5 Absolute Eos (auto) 0.4 Absolute Basos (auto) 0.1 Absolute Nucleated RBC 0.1 Immature Gran % 1 Neutrophils % 83 Lymphocytes % 11 L Monocytes % 1 Eosinophils % 4 Basophils % 0 Metamyelocytes % 1 Nucleated RBC % 0.6 Abs Neuts (Manual) 9.0 H Abs Lymphs (Manual) 1.2 Abs Monocytes (Manual) 0.1 Absolute Eos (Manual) 0.4 Abs Basophils (Manual) 0 Nucleated RBCs/100 WBC 0 Normal RBC Morphology Not Reportable Anisocytosis 1+ INR (Anticoag Therapy) 1.07 H A/P: 87 yo male with Afib on coumadin came in with supratherapuetic INR and recent use of Aleve. Coumadin is on hold and given Vitamin K. INR is now 1.07. Went into A.fib with RVR and transferred to ICU. Hemodymically stable. No active rectal bleeding. Hgb is stable s/p 8 units of prbcs. 1. Melena with UGIB - resolved. ~Likely NSAID-induced with recent use of Aleve in the setting of anticoagulation. ~Repeat EGD today showed large amount of edema with likely healing cratered gastric ulcer. No active bleeding seen. ~Switched to pantoprazole 40 mg BID for 6 weeks, then decrease to once daily until seen in follow-up. ~Started heart healthy diet. ~No NSAIDs indefinitely due to life-threatening GI bleeding. ~May start ASA [address] of coumadin. D/w Fallon Muir NP. 2. Acute blood loss anemia s/p 8 units of prbcs - stable. -Monitor H/H daily. 3. Coagulopathy - resolved. ~S/p Vitamin K. ~INR 1.07 today. ~Coumadin on hold indefinitely. 4. A.fib with RVR ~Rate-controlled. ~Managed by primary team. D/w Fallon Muir NP and patient's family. Skylar Banegas D.O.
[2017-09-11] MEDS: Omeprazole CAP* 20 MG PO SCH (20:19)
[2017-09-12] MEDS: NS 0.9% 1000 ML* 1,000 ML IV SCH (01:24)
--- NOTE | 2017-09-12 02:43 | PRO ---
CC: Dr. Way; Dr. Poole; Fallon Muir NP; Skylar Banegas DO GASTROENTEROLOGY OPERATIVE REPORT: DATE OF PROCEDURE: 09/11/17 OPERATIVE PROCEDURE: Esophagogastroduodenoscopy to second portion of duodenum. SURGEON: Skylar Banegas DO ANESTHESIA: 1. Midazolam 5 mg IV. 2. Fentanyl 50 mcg IV. HISTORY OF PRESENT ILLNESS: Duncan is a pleasant 87-year-old male with a history of atrial fibrillation, on Coumadin therapy with a recent hip replacement who was taking Aleve for chronic pain. He presented to [facility] earlier this week with complaints of melena and was noted to be significantly anemic. An emergent endoscopy revealed a large blood clot with underlying gastric ulcer versus polyp. No intervention was necessary at that time. Today, he is having a repeat endoscopy to further evaluate the bleeding site. He is currently hemodynamically stable. He is in atrial fibrillation, but it rate controlled. His hemoglobin is now stable at 9.6 and no complaints of rectal bleeding. PREOPERATIVE DIAGNOSES: 1. Melena. 2. Acute blood loss anemia. 3. History of NSAID use in the setting of Coumadin therapy. POSTOPERATIVE DIAGNOSES: 1. Normal-appearing mid and proximal esophagus. 2. Irregular-appearing gastroesophageal junction at 50 cm from the incisors. 3. Erosive antral gastritis with CLOtest to rule out H. pylori. 4. Significant amount of antral edema with likely large healing cratered gastric ulcer. 5. No active bleeding seen. 6. Normal-appearing duodenum to the second portion. RECOMMENDATIONS: 1. We will follow up results with CLOtest. 2. Discontinue Protonix drip. 3. Start pantoprazole 40 mg twice daily for 6 weeks, then decrease to once daily until the patient follows up in our office. 4. Avoid NSAIDs indefinitely due to life-threatening gastrointestinal bleed. 5. Will start heart-healthy diet. 6. Check H and H tomorrow at a.m. 7. Discussed with Fallon Muir NP. The patient may be started on low -dose aspirin in place of Coumadin therapy tomorrow morning. 8. Discussed results with family. DESCRIPTION OF PROCEDURE: Esophagogastroduodenoscopy was explained in detail to the patient. The risks, benefits, complications, alternatives, possibilities of missed lesions were explained and understood. Complications included, but were not limited to, reaction to anesthesia, aspiration, increased risk of bleeding, and perforation. All questions were answered. The patient demonstrated understanding of the conversation and informed consent was obtained. Next, the patient was brought to the endoscopy suite, placed in the left lateral recumbent position where blood pressure, cardiac, and oxygen monitors were applied. The patient was found to be a fit candidate for moderate anesthesia. After adequate IV sedation was achieved, a bite block was placed. Next, a standard adult Olympus endoscope was inserted per os under direct visualization to the first portion of the duodenum. First and second portion of the duodenum including the bulb were normal appearing. Biopsies were not obtained due to recent active GI bleeding and advanced age. Further withdrawal of the endoscope into the gastric lumen revealed significant edema in the antrum. On the closer inspection, there appeared to be a healing gastric ulcer , although was difficult to visualize due to significant edema. No blood clot was present. No active bleeding was seen. On retroflexion, the patient has a loose gastric cardia sling. Further withdrawal of the endoscope into the distal esophagus revealed irregular appearing Z-line at 50 cm. Again, biopsies were not obtained due to recent gastrointestinal bleeding. A CLOtest was performed from the gastric body to rule out H. pylori. The rest of the tubular esophagus was normal appearing. Air was then removed from the patient. Endoscope was removed from the patient. The patient tolerated the procedure well. There were no immediate complications. After a period of observation patient continued to remain stable and left in the care of the ICU. Thank you, Fallon Muir NP, for allowing us to participate in the care of your patient. If you should have any further questions or concerns, please do not hesitate to contact us. [id number]/[facility] #: [id number] DONALD
--- NOTE | 2017-09-12 08:34 | PN ---
Subjective Date of Service: 09/12/17 Interval History: Patient reports that he is feeling better today. Denies rectal bleeding or abd pain. Denies N/V/D. Denies chest pain or shortness of breath. Would like to go to Assisted living as soon as able. Family History: Unchanged from Admission Social History: Unchanged from Admission Past Medical History: Unchanged from Admission Objective Active Medications: Diazepam (Valium Tab(*)) 5 mg PO Q8H PRN PRN Reason: spasm Last Admin: 09/09/17 14:50 Dose: 5 mg Hydralazine HCl (Apresoline Iv*) 5 mg IV SLOW PU Q6H PRN PRN Reason: DBP>90 Last Admin: 09/10/17 12:34 Dose: 5 mg Sodium Chloride (Ns 0.9% 1000 Ml*) 1,000 mls @ 75 mls/hr IV PER RATE [facility] Last Admin: 09/12/17 01:24 Dose: 75 mls/hr Lisinopril (Prinivil Tab*) 10 mg PO DAILY [facility] Last Admin: 09/11/17 09:06 Dose: 10 mg Metoprolol Succinate (Toprol Xl Tab*) 50 mg PO DAILY [facility] Last Admin: 09/11/17 09:06 Dose: 50 mg Nystatin (Nystatin Top Powder*) 1 applic TOPICAL TID [facility] Last Admin: 09/11/17 20:15 Dose: 1 applic Omeprazole (Prilosec Cap*) 20 mg PO BID [facility] Last Admin: 09/11/17 20:19 Dose: 20 mg Tamsulosin HCl (Flomax Cap*) 0.4 mg PO DAILY [facility] Last Admin: 09/11/17 09:06 Dose: 0.4 mg Vital Signs - 8 hr 09/12/17 09/12/17 09/12/17 01:00 02:00 03:00 Temperature 100.0 F 99.9 F 99.7 F Pulse Rate 87 93 95 Respiratory 19 19 20 Rate Blood Pressure 128/69 111/57 (mmHg) O2 Sat by Pulse 97 96 97 Oximetry 09/12/17 09/12/17 09/12/17 03:01 04:00 04:01 Temperature 99.7 F 99.5 F 99.5 F Pulse Rate 98 109 104 Respiratory 27 19 19 Rate Blood Pressure 125/57 111/72 (mmHg) O2 Sat by Pulse 98 98 97 Oximetry 09/12/17 09/12/17 09/12/17 05:00 06:00 07:00 Temperature 99.5 F 99.5 F 99.5 F Pulse Rate 105 73 90 Respiratory 14 17 21 Rate Blood Pressure 118/73 133/71 133/67 (mmHg) O2 Sat by Pulse 93 97 97 Oximetry Oxygen Devices in Use Now: Nasal Cannula Appearance: appears comfortable sitting in the bed, color pink Eyes: No Scleral Icterus Ears/Nose/Mouth/Throat: Clear Oropharnyx, Mucous Membranes Moist Neck: NL Appearance and Movements; NL JVP, Trachea Midline Respiratory: Symmetrical Chest Expansion and Respiratory Effort, Clear to Auscultation Cardiovascular: No Edema, - - S1/S2 irregular, no gallops, No JVD Abdominal: NL Sounds; No Tenderness; No Distention Extremities: No Clubbing, Cyanosis, - - genralized limb edema Skin: No Rash or Ulcers Neurological: Alert and Oriented x 3, NL Muscle Strength and Tone Nutrition: Taking PO's Result Diagrams: 09/12/17 08:34 09/12/17 08:34 Additional Lab and Data: . Laboratory Tests 09/06/17 09/06/17 09/07/17 12:59 17:12 01:24 Hgb 8.6 L 7.1 L 5.2 L* Hct 26 L 21 L 16 L 09/07/17 09/07/17 02:50 05:22 Hgb 5.2 L* 4.8 L* Hct 15 L 14 L Microbiology and Other Data: Microbiology 09/10/17 20:40 Nasal Screen MRSA (PCR)([facility]) - Final Nasal Mrsa Not Detected 09/10/17 18:17 Stool Occult Blood ([facility]) - Final Stool Assess/Plan/Problems-Billing Assessment: This is an 87 yo male with PMH significant for HTN, prostate CA, ARAEBLLA, HLD, PAF, and left LE lymphedema who presented to the emergency room with complaints of bright red blood per rectum and abdominal pain, found to have large blood clot in stomach and symptomatic anemia 2/2 bleeding and atrial fib with RVR. - Patient Problems (1) GI bleed Current Visit: Yes Status: Acute Code(s): K92.2 - GASTROINTESTINAL HEMORRHAGE, UNSPECIFIED SNOMED Code(s): 37713110 Comment: - S/P endoscopy, large ulcer in the stomach- no bleeding - Will continue omeprazole 20 mg po BID for 6 weeks and then once daily until follow up with GI. - INR stable, continue to hold coumadin d/t life threathening GI bleed. - GI recommended starting ASA 81 mg po daily- will resume tomorrow. (2) Anemia Current Visit: Yes Status: Acute Code(s): D64.9 - ANEMIA, UNSPECIFIED SNOMED Code(s): 174806995 Comment: - Acute blood loss anemia secondary to GI bleed- resolving- no new bleeding today - Total of 8 units PRBCs transfused - INR <1.5, continue to hold coumadin indefinately d/t life threatening GI bleed- will start baby ASA today as per GI recommendations tomorrow - repeated CBC today with H/H .06/27 (3) Atrial fibrillation with rapid ventricular response Current Visit: Yes Status: Acute Code(s): I48.91 - UNSPECIFIED ATRIAL FIBRILLATION SNOMED Code(s): 448775873926402 Comment: - Had hypotension on cardizem drip - Changed to digoxin with good effect - BP and HR stable - will get digoxin level today- 0.8 - will give Digoxin 0.125 mg po daily (4) Supratherapeutic INR Current Visit: Yes Status: Acute Code(s): R79.1 - ABNORMAL COAGULATION PROFILE SNOMED Code(s): 370647308 Comment: _ resolved - .07 yesterday - Given seriousness of GI bleeding, would recommend against AC with coumadin moving forward and continue with rate control only- GI has approved ASA 81 mg (5) HTN (hypertension) Current Visit: No Status: Acute Code(s): I10 - ESSENTIAL (PRIMARY) HYPERTENSION SNOMED Code(s): 65031803 Comment: - hypotension resolved, continue home meds (6) Status post total knee replacement, right Current Visit: No Status: Acute Code(s): Z96.651 - PRESENCE OF RIGHT ARTIFICIAL KNEE JOINT SNOMED Code(s): 1686636070150 Comment: - Per patient, was taking Aleve in large quantities 2/2 ongoing joint pain which may likely be the etiology of his current GI issues - PT eval (7) Lymphedema Current Visit: No Status: Chronic Code(s): I89.0 - LYMPHEDEMA, NOT ELSEWHERE CLASSIFIED SNOMED Code(s): 586369323 Comment: - Chronic left LE - Erythema improved, no signs of infection (8) ARABELLA (obstructive sleep apnea) Current Visit: No Status: Chronic Code(s): G47.33 - OBSTRUCTIVE SLEEP APNEA (ADULT) (PEDIATRIC) SNOMED Code(s): 22834508 Comment: - Non-compliant at home, monitor resp status - May consider initiating hospital CPAP if needed. (9) Hypomagnesemia Current Visit: Yes Status: Acute Code(s): E83.42 - HYPOMAGNESEMIA SNOMED Code(s): 003267082 Comment: - will give Magnesium 2 gm IVPB and repeat level in the AM (10) DVT prophylaxis Current Visit: Yes Status: Acute Code(s): IKW6173 - SNOMED Code(s): 752781849 Comment: - SCD's only in the setting of GI bleed (11) Full code status Current Visit: Yes Status: Acute Code(s): Z78.9 - OTHER SPECIFIED HEALTH STATUS SNOMED Code(s): 896149868 Status and Disposition: Remain inpatient, DC to [facility] when clear.
[2017-09-12 08:43] LABS: ABS Basophils 0.1 10^3/ul (0-0.2); ABS Eosinophils 0.4 10^3/ul (0-0.6); ABS Lymphocytes 0.9 10^3/ul (1.0-4.8); ABS Monocytes 0.6 10^3/ul (0-0.8); ABS Neutrophils 7.1 10^3/ul (1.5-7.7); ABS Nucleated RBC 0 10^3/ul; Eosinophil % 4.4 % (0-6); Hematocrit 27 % (42-52); Hemoglobin 9.1 g/dl (14.0-18.0); Lymphocyte % 9.5 % (25-47); Mean Corpuscular HGB Conc 34 g/dl (31-36); Mean Corpuscular Hemoglobin 31 pg (27-31); Mean Corpuscular Volume 90 fL (80-94); Mean Platelet Volume 7.7 um3 (7.4-10.4); Nucleated Red Blood Cells % 0.1; Platelet Count 236 10^3/ul (150-450); Red Blood Count 2.97 10^6/ul (4.0-5.4); Red Cell Distribution Width 16 % (10.5-15)
[2017-09-12] MEDS: Tamsulosin CAP* 0.4 MG PO SCH (08:59)
[2017-09-12] MEDS: Metoprolol Succinate XL TAB* 50 MG PO SCH (08:59)
[2017-09-12] MEDS: Omeprazole CAP* 20 MG PO SCH ×2 (08:59→22:02)
[2017-09-12] MEDS: Lisinopril TAB* 10 MG PO SCH (08:59)
[2017-09-12] MEDS: Nystatin TOP POWDER* 15 GM BTL TOPICAL SCH ×3 (09:00→22:04)
[2017-09-12 09:01] LABS: EGFR Non-African American 108.7 (>60)
[2017-09-12] MEDS ORDERED: Magnesium Sulfate 2 GM IV* 2 GM/50 ML BAG IVPB ONE (09:06)
[2017-09-12] MEDS ORDERED: Potassium Chlor TAB* 20 MEQ TAB.ER PO ONE (14:37)
[2017-09-12] MEDS: Digoxin TAB* 0.125 MG PO SCH (15:06)
[2017-09-13 06:52] LABS: EGFR Non-African American 106.9 (>60)
[2017-09-13] MEDS ORDERED: Magnesium Sulfate 2 GM IV* 2 GM/50 ML BAG IVPB ONE (08:07)
[2017-09-13] MEDS: Tamsulosin CAP* 0.4 MG PO SCH (08:50)
[2017-09-13] MEDS: Nystatin TOP POWDER* 15 GM BTL TOPICAL SCH ×3 (08:50→21:32)
[2017-09-13] MEDS: Lisinopril TAB* 10 MG PO SCH (08:50)
[2017-09-13] MEDS: Metoprolol Succinate XL TAB* 50 MG PO SCH (08:50)
[2017-09-13] MEDS: Omeprazole CAP* 20 MG PO SCH ×2 (10:53→21:32)
[2017-09-13 11:28] LABS: Hematocrit 27 % (42-52)
--- NOTE | 2017-09-13 12:41 | PN ---
Subjective Date of Service: 09/13/17 Interval History: c/o an episode of lightheadedness after sitting in the chair for approx 2 hours , reports that he felt a little nauseated as well and believes it was related to the yogurt that he ate this AM. reports that the episode resolved after getting back into bed. Denies lightheadedness at this time, denies chest pain or shortness of breath, denies abd pain, n/v/d. Family History: Unchanged from Admission Social History: Unchanged from Admission Past Medical History: Unchanged from Admission Objective Active Medications: Diazepam (Valium Tab(*)) 5 mg PO Q8H PRN PRN Reason: spasm Last Admin: 09/09/17 14:50 Dose: 5 mg Digoxin (Lanoxin Tab*) 0.125 mg PO 1700 [facility] Last Admin: 09/12/17 15:06 Dose: 0.125 mg Hydralazine HCl (Apresoline Iv*) 5 mg IV SLOW PU Q6H PRN PRN Reason: DBP>90 Last Admin: 09/10/17 12:34 Dose: 5 mg Lisinopril (Prinivil Tab*) 10 mg PO DAILY [facility] Last Admin: 09/13/17 08:50 Dose: 10 mg Metoprolol Succinate (Toprol Xl Tab*) 50 mg PO DAILY [facility] Last Admin: 09/13/17 08:50 Dose: 50 mg Nystatin (Nystatin Top Powder*) 1 applic TOPICAL TID [facility] Last Admin: 09/13/17 08:50 Dose: 1 applic Omeprazole (Prilosec Cap*) 20 mg PO BID [facility] Last Admin: 09/13/17 10:53 Dose: 20 mg Tamsulosin HCl (Flomax Cap*) 0.4 mg PO DAILY [facility] Last Admin: 09/13/17 08:50 Dose: 0.4 mg Vital Signs - 8 hr 09/13/17 09/13/17 09/13/17 07:27 08:00 11:17 Temperature 98.1 F 97.9 F Pulse Rate 97 71 Respiratory 16 16 24 Rate Blood Pressure 124/70 96/48 (mmHg) O2 Sat by Pulse 94 93 Oximetry Oxygen Devices in Use Now: Nasal Cannula Appearance: color pale, alert sitting up in bed, appears comfortable, NAD Eyes: No Scleral Icterus Ears/Nose/Mouth/Throat: Clear Oropharnyx, Mucous Membranes Moist Neck: NL Appearance and Movements; NL JVP, Trachea Midline Respiratory: Symmetrical Chest Expansion and Respiratory Effort, Clear to Auscultation, - Cardiovascular: NL Sounds; No Murmurs; No JVD Abdominal: NL Sounds; No Tenderness; No Distention Extremities: - - +2 pitting edema to lower legs Skin: No Rash or Ulcers Result Diagrams: 09/13/17 11:22 09/13/17 05:55 Additional Lab and Data: . Laboratory Tests 09/06/17 09/06/17 09/07/17 12:59 17:12 01:24 Hgb 8.6 L 7.1 L 5.2 L* Hct 26 L 21 L 16 L 09/07/17 09/07/17 02:50 05:22 Hgb 5.2 L* 4.8 L* Hct 15 L 14 L Microbiology and Other Data: Microbiology 09/10/17 20:40 Nasal Screen MRSA (PCR)([facility]) - Final Nasal Mrsa Not Detected 09/10/17 18:17 Stool Occult Blood ([facility]) - Final Stool Assess/Plan/Problems-Billing Assessment: This is an 87 yo male with PMH significant for HTN, prostate CA, ARABELLA, HLD, PAF, and left LE lymphedema who presented to the emergency room with complaints of bright red blood per rectum and abdominal pain, found to have large blood clot in stomach and symptomatic anemia 2/2 bleeding and atrial fib with RVR. - Patient Problems (1) GI bleed Current Visit: Yes Status: Acute Code(s): K92.2 - GASTROINTESTINAL HEMORRHAGE, UNSPECIFIED SNOMED Code(s): 03507370 Comment: - S/P endoscopy, large ulcer in the stomach- no bleeding - Will continue omeprazole 20 mg po BID for 6 weeks and then once daily until follow up with GI. - continue to hold coumadin d/t life threathening GI bleed. - GI recommended starting ASA 81 mg po daily- will resume tomorrow. (2) Anemia Current Visit: Yes Status: Acute Code(s): D64.9 - ANEMIA, UNSPECIFIED SNOMED Code(s): 490809263 Comment: - Acute blood loss anemia secondary to GI bleed- resolving- no new bleeding today - Total of 8 units PRBCs transfused - start baby ASA as per GI recommendations - (3) Atrial fibrillation with rapid ventricular response Current Visit: Yes Status: Acute Code(s): I48.91 - UNSPECIFIED ATRIAL FIBRILLATION SNOMED Code(s): 332108875784600 Comment: - Had hypotension on cardizem drip - Changed to digoxin with good effect - BP and HR stable - will give Digoxin 0.125 mg po daily (4) Supratherapeutic INR Current Visit: Yes Status: Acute Code(s): R79.1 - ABNORMAL COAGULATION PROFILE SNOMED Code(s): 774930775 Comment: _ resolved - 1.07 yesterday - Given seriousness of GI bleeding, would recommend continuing with rate control only- - GI has approved ASA 81 mg (5) HTN (hypertension) Current Visit: No Status: Acute Code(s): I10 - ESSENTIAL (PRIMARY) HYPERTENSION SNOMED Code(s): 03310260 Comment: - hypotension resolved, continue home meds (6) Status post total knee replacement, right Current Visit: No Status: Acute Code(s): Z96.651 - PRESENCE OF RIGHT ARTIFICIAL KNEE JOINT SNOMED Code(s): 4213217202616 Comment: - Per patient, was taking Aleve in large quantities 2/2 ongoing joint pain which may likely be the etiology of his current GI issues - PT eval (7) Lymphedema Current Visit: No Status: Chronic Code(s): I89.0 - LYMPHEDEMA, NOT ELSEWHERE CLASSIFIED SNOMED Code(s): 411258098 Comment: - Chronic left LE - Erythema improved, no signs of infection (8) ARABELLA (obstructive sleep apnea) Current Visit: No Status: Chronic Code(s): G47.33 - OBSTRUCTIVE SLEEP APNEA (ADULT) (PEDIATRIC) SNOMED Code(s): 10161303 Comment: - Non-compliant at home, monitor resp status - May consider initiating hospital CPAP if needed. (9) Hypomagnesemia Current Visit: Yes Status: Acute Code(s): E83.42 - HYPOMAGNESEMIA SNOMED Code(s): 981814248 Comment: Magnesium 1.7 today- will give Magnesium 2 gm IVPB and repeat level in the AM (10) DVT prophylaxis Current Visit: Yes Status: Acute Code(s): DOK0988 - SNOMED Code(s): 344831724 Comment: - SCD's only in the setting of GI bleed (11) Full code status Current Visit: Yes Status: Acute Code(s): Z78.9 - OTHER SPECIFIED HEALTH STATUS SNOMED Code(s): 678903725 Status and Disposition: Remain inpatient, DC to [facility] when clear.
[2017-09-13] MEDS: Digoxin TAB* 0.125 MG PO SCH (16:59)
[2017-09-14] MEDS: Omeprazole CAP* 20 MG PO SCH ×2 (07:35→22:18)
[2017-09-14] MEDS: Lisinopril TAB* 10 MG PO SCH (10:18)
[2017-09-14] MEDS: Metoprolol Succinate XL TAB* 50 MG PO SCH (10:18)
[2017-09-14] MEDS: Tamsulosin CAP* 0.4 MG PO SCH (10:18)
[2017-09-14] MEDS: Nystatin TOP POWDER* 15 GM BTL TOPICAL SCH ×3 (10:23→22:18)
[2017-09-14] MEDS: Digoxin TAB* 0.125 MG PO SCH (17:22)
--- NOTE | 2017-09-14 20:28 | PN ---
Subjective Date of Service: 09/14/17 Interval History: Patient that he is feeling well. Denies chest pain or shortness of breath. denies abd pain, n/v/d Family History: Unchanged from Admission Social History: Unchanged from Admission Past Medical History: Unchanged from Admission Objective Active Medications: Aspirin (Aspirin Ec Tab*) 81 mg PO DAILY [facility] Diazepam (Valium Tab(*)) 5 mg PO Q8H PRN PRN Reason: spasm Last Admin: 09/09/17 14:50 Dose: 5 mg Digoxin (Lanoxin Tab*) 0.125 mg PO 1700 [facility] Last Admin: 09/14/17 17:22 Dose: 0.125 mg Hydralazine HCl (Apresoline Iv*) 5 mg IV SLOW PU Q6H PRN PRN Reason: DBP>90 Last Admin: 09/10/17 12:34 Dose: 5 mg Metoprolol Succinate (Toprol Xl Tab*) 50 mg PO DAILY [facility] Last Admin: 09/14/17 10:18 Dose: 50 mg Nystatin (Nystatin Top Powder*) 1 applic TOPICAL TID [facility] Last Admin: 09/14/17 14:33 Dose: 1 applic Omeprazole (Prilosec Cap*) 20 mg PO BID [facility] Last Admin: 09/14/17 07:35 Dose: 20 mg Tamsulosin HCl (Flomax Cap*) 0.4 mg PO DAILY [facility] Last Admin: 09/14/17 10:18 Dose: 0.4 mg Vital Signs - 8 hr 09/14/17 09/14/17 09/14/17 14:59 15:03 17:22 Temperature 97.3 F 99.2 F Pulse Rate 69 48 90 Respiratory 18 18 Rate Blood Pressure 159/58 124/57 (mmHg) O2 Sat by Pulse 97 93 Oximetry Oxygen Devices in Use Now: Nasal Cannula Appearance: appears comfortable sitting in bed, color pale Eyes: No Scleral Icterus Ears/Nose/Mouth/Throat: Clear Oropharnyx, Mucous Membranes Moist Neck: NL Appearance and Movements; NL JVP, Trachea Midline Respiratory: Symmetrical Chest Expansion and Respiratory Effort, Clear to Auscultation Cardiovascular: NL Sounds; No Murmurs; No JVD, No Edema Abdominal: NL Sounds; No Tenderness; No Distention Extremities: No Edema, No Clubbing, Cyanosis Skin: No Rash or Ulcers Neurological: Alert and Oriented x 3 Nutrition: Taking PO's Result Diagrams: 09/13/17 11:22 09/13/17 05:55 Additional Lab and Data: . Laboratory Tests 09/06/17 09/06/17 09/07/17 12:59 17:12 01:24 Hgb 8.6 L 7.1 L 5.2 L* Hct 26 L 21 L 16 L 09/07/17 09/07/17 02:50 05:22 Hgb 5.2 L* 4.8 L* Hct 15 L 14 L Microbiology and Other Data: Microbiology 09/10/17 20:40 Nasal Screen MRSA (PCR)([facility]) - Final Nasal Mrsa Not Detected 09/10/17 18:17 Stool Occult Blood ([facility]) - Final Stool Assess/Plan/Problems-Billing Assessment: This is an 87 yo male with PMH significant for HTN, prostate CA, ARABELLA, HLD, PAF, and left LE lymphedema who presented to the emergency room with complaints of bright red blood per rectum and abdominal pain, found to have large blood clot in stomach and symptomatic anemia 2/2 bleeding and atrial fib with RVR. - Patient Problems (1) GI bleed Current Visit: Yes Status: Acute Code(s): K92.2 - GASTROINTESTINAL HEMORRHAGE, UNSPECIFIED SNOMED Code(s): 33769369 Comment: - S/P endoscopy, large ulcer in the stomach- no bleeding - Will continue omeprazole 20 mg po BID for 6 weeks and then once daily until follow up with GI. - continue to hold coumadin d/t life threathening GI bleed. - GI recommended starting ASA 81 mg po daily- will resume tomorrow. (2) Anemia Current Visit: Yes Status: Acute Code(s): D64.9 - ANEMIA, UNSPECIFIED SNOMED Code(s): 261696596 Comment: - Acute blood loss anemia secondary to GI bleed- resolving- no new bleeding today - Total of 8 units PRBCs transfused - start baby ASA as per GI recommendations - (3) Atrial fibrillation with rapid ventricular response Current Visit: Yes Status: Acute Code(s): I48.91 - UNSPECIFIED ATRIAL FIBRILLATION SNOMED Code(s): 419654262555395 Comment: - Had hypotension on cardizem drip - Changed to digoxin with good effect - BP and HR stable - will give Digoxin 0.125 mg po daily (4) Supratherapeutic INR Current Visit: Yes Status: Acute Code(s): R79.1 - ABNORMAL COAGULATION PROFILE SNOMED Code(s): 329649514 Comment: _ resolved - Given seriousness of GI bleeding, would recommend continuing with rate control only- - GI has approved ASA 81 mg (5) HTN (hypertension) Current Visit: No Status: Acute Code(s): I10 - ESSENTIAL (PRIMARY) HYPERTENSION SNOMED Code(s): 59352957 Comment: - hypotension resolved, continue home meds (6) Status post total knee replacement, right Current Visit: No Status: Acute Code(s): Z96.651 - PRESENCE OF RIGHT ARTIFICIAL KNEE JOINT SNOMED Code(s): 0446525163262 Comment: - Per patient, was taking Aleve in large quantities 2/2 ongoing joint pain which may likely be the etiology of his current GI issues - PT eval (7) Lymphedema Current Visit: No Status: Chronic Code(s): I89.0 - LYMPHEDEMA, NOT ELSEWHERE CLASSIFIED SNOMED Code(s): 104036186 Comment: - Chronic left LE - Erythema improved, no signs of infection (8) ARABELLA (obstructive sleep apnea) Current Visit: No Status: Chronic Code(s): G47.33 - OBSTRUCTIVE SLEEP APNEA (ADULT) (PEDIATRIC) SNOMED Code(s): 53536217 Comment: - Non-compliant at home, monitor resp status - May consider initiating hospital CPAP if needed. (9) Hypomagnesemia Current Visit: Yes Status: Acute Code(s): E83.42 - HYPOMAGNESEMIA SNOMED Code(s): 331998272 Comment: - will check mag in the AM (10) DVT prophylaxis Current Visit: Yes Status: Acute Code(s): GLO9233 - SNOMED Code(s): 746945546 Comment: - SCD's only in the setting of GI bleed (11) Full code status Current Visit: Yes Status: Acute Code(s): Z78.9 - OTHER SPECIFIED HEALTH STATUS SNOMED Code(s): 951529369 Status and Disposition: Remain inpatient, DC to [facility] tomorrow
[2017-09-15 06:08] LABS: EGFR Non-African American 85.5 (>60)
[2017-09-15] MEDS: Diazepam TAB(*) 5 MG PO PRN (06:18)
--- NOTE | 2017-09-15 06:33 | PN ---
Progress Note - Progress Note Date of Service: 09/15/17 Note: Patient with urinary retention straight cath x 1. Again with > 600 ml on bladder scan - [facility] ordered.
[2017-09-15] MEDS: Omeprazole CAP* 20 MG PO SCH (08:10)
[2017-09-15 08:39] VITALS: BP 122/77
[2017-09-15] MEDS: Metoprolol Succinate XL TAB* 50 MG PO SCH (08:56)
[2017-09-15] MEDS: Tamsulosin CAP* 0.4 MG PO SCH (08:56)
[2017-09-15] MEDS: Nystatin TOP POWDER* 15 GM BTL TOPICAL SCH (08:56)
[2017-09-15] MEDS ORDERED: Aspirin EC TAB* 81 MG TAB.EC PO SCH (09:00)
[2017-09-15] MEDS ORDERED: Metoprolol Succinate XL TAB* 25 MG PO ONE (11:50)
[2017-09-15] MEDS ORDERED: Finasteride TAB* 5 MG PO SCH (12:00)
[2017-09-15] MEDS ORDERED: Omeprazole CAP* 20 MG PO SCH (16:30)
--- NOTE | 2017-09-16 02:09 | DS ---
CC: Dr. Vito Way; Dr. Cosme Duarte * DISCHARGE SUMMARY: DATE OF ADMISSION: 09/06/17 DATE OF DISCHARGE: 09/15/17 PROVIDER: Beth Bonds NP ATTENDING PHYSICIAN: Dr. Frankie Dan * (dictated by Beth Bonds NP) PRIMARY CARE PROVIDER: Dr. Vito Way PRIMARY DIAGNOSES: 1. Gastrointestinal bleed. 2. Acute blood loss anemia. 3. Atrial fibrillation. SECONDARY DIAGNOSES: 1. Hypertension. 2. Prostate carcinoma. 3. Obstructive sleep apnea. 4. Hyperlipidemia. 5. Left lower leg lymphedema. 6. Neurofibromatosis. 7. Basal cell carcinoma of the urine. 8. Obesity. 9. Arthritis. STUDIES COMPLETED WHILE IN THE HOSPITAL: On 09/07/17, he had an upper endoscopy. Impression: 1. Complete upper endoscopy of the duodenum. 2. A very large blood clot with ulcerated nodule versus polyp versus ulcer. 3. No signs of active bleeding. 4. The patient does not need to have his INR collected. 5. He needs more blood and needs to have a Protonix drip started. Given his very high risk of rebleed, he will need a repeat endoscopy in the next few days. He had a repeat endoscopy on 09/11/17. 1. Normal appearing mid and proximal esophagus. 2. Irregular appearing gastroesophageal junction at 50 cm from the incisors. 3. Erosive antral gastritis with CLOtest to rule out H. pylori. 4. Significant amount of antral edema with likely large healing cratered gastric ulcer. No active bleeding seen. Normal appearing duodenum to the second portion. DISCHARGE MEDICATIONS: New: 1. Aspirin 81 mg p.o. daily. 2. Digoxin 0.125 mg p.o. daily. 3. Finasteride 5 mg p.o. daily. 4. Metoprolol 75 mg p.o. daily. 5. Nystatin topically t.i.d. 6. Omeprazole 20 mg p.o. b.i.d. x6 weeks then decrease to once daily. Continued home medications: 1. Flomax 0.4 mg p.o. daily. 2. Vitamin Q-M-xxbz-Lutein (PreserVision)-2 softgel 1 p.o. daily. Discontinued home medications: 1. Coumadin. HISTORY OF PRESENT ILLNESS AND HOSPITAL COURSE: Mr. Medina is an 87-year-old gentleman with the past medical history significant for prostate cancer, hypertension, obstructive sleep apnea, hyperlipidemia, and left lower leg lymphedema, atrial fibrillation, obesity, who presented to the emergency room with complaints of bright red blood per the rectum. The patient denies any recent fevers, chills, chest pain, shortness of breath, nausea, vomiting, or abdominal pain. The patient states that he was in his normal state of health on the day of admission until a few days ago when he was constipated and felt as though he was fully unable to pass stool, so he manually disimpacted himself. He states that the next day, he had a normal bowel movement. This morning, the patient had an emergent feeling of needing to defecate and when he went and later looked in the toilet. He noticed dark brown stool with some red in the toilet. He proceeded to go on with his day and then again had emergent feeling of needing to use the bathroom and did soil himself and noted to have blood again in the stool. He was intermittently feeling lightheaded. He denied any palpitations. The patient states that he recently had been treated with antibiotics for possible infection in his leg. He was also [facility] The patient states the swelling in his leg is better in the morning and worse in the evening. He soaks his left foot in Epsom salt each morning. Due to the concern of bright red blood in his stool, he presented to the emergency room for further evaluation. In the emergency room, the patient was monitored on telemetry. His initial hemoglobin was 8.6 and was down from 10.3 almost a year ago and was found to have an INR of 4.8 and magnesium of 1.8. He had an EKG showing a possible atrial fibrillation versus sinus tachycardia. The patient reported not taking his metoprolol this morning, so he took his own metoprolol while in the emergency room. Due to the patient's bright red blood per rectum and the possibility of GI bleed, we were asked to evaluate him for admission. During his hospitalization, he did have bright red blood from the rectum in a large amount. His H and H's were trended throughout his hospitalization and they were as low as 4.8 and 14. He was monitored in the ICU for a few days. He was given a total of 8 units of packed red blood cells throughout his hospitalization for his acute blood loss anemia, due to his GI bleed. After the blood transfusions and the bleeding had stopped, his H and H stabilized. His last H and H on 09/13/17 was 9.0 and 27. During his hospitalization his blood pressures around 11 in the morning would drop into the upper 80s and 90s systolically. His lisinopril was discontinued to help resolve. He also had some increasing heart rate with exertion and activity as well as at rest ranging anywhere from 101 to 151. His metoprolol was increased from 50 mg to 75 mg. Today, Mr. Medina is feeling well. He has no complaints. He denies any lightheaded or dizziness. He denies any bright red blood from the rectum. He did have his Hickman catheter removed yesterday and during the night, he was unable to urinate and felt like he had to keep going, was only urinating only small amounts. They did bladder scan and he had about over 500 mL of urine in his bladder, so they straight cathed him, but the patient continued to be unable to urinate, so he had a Hickman catheter replaced this morning, 09/15/17. At this time, Mr. Medina is stable for discharge to [facility]. Mr. Medina is stable for [facility]. Vital signs are as follows: Temperature was 97.6, heart rate was 80, respirations were 16, O2 saturation was 95%, blood pressure was 122/77. DISCHARGE PLAN: Mr. Medina will be discharged to [facility]. Activity as tolerated with physical therapy and occupational therapy. He should continue on a low sodium heart healthy diet. 1. GI bleed. He needs to continue on omeprazole 20 mg p.o. b.i.d. for 6 weeks and then decrease to 20 mg daily per GI recommendations. GI has also recommended that he be placed on 81 mg of aspirin, AFib. We will continue on 81 mg of aspirin. His Coumadin has been discontinued due to his significant GI bleed. We will continue his metoprolol at 75 mg p.o. daily. 2. Hypertension. His blood pressures were running soft in the morning, so his lisinopril was discontinued. I increased his metoprolol to 75 mg p.o. daily to see if this would assist with his episodes of lightheadedness. 3. Urinary retention, the Hickman catheter will remain in place. I did start him on finasteride along with his Flomax in the attempt that we may be able to remove the catheter again. The patient should continue his care and rehab in [facility]. The patient should be evaluated if there is a recurrence of any GI bleeding, chest pain, shortness of breath, tachycardia. This is a summarization of his hospitalization. For further details, please see the entire medical record. TIME SPENT: On this discharge was approximately 60 minutes, greater than half that time was spent with the patient discussing discharge plans and instructions. CONDITION ON DISCHARGE: Stable. Discharge plan was discussed with my attending Dr. Frankie Dan and he is in agreement with my plan. BETH BONDS, JUSTEN [id number]/CPS #: [id number] MTDD
[2017-09-16] MEDS ORDERED: Metoprolol Succinate XL TAB* 50 MG PO SCH (09:00)
== END 2017-09-15 12:50 | DRG 378 ==
LOC: ED 11:43 → MEDTELE 14:53 → ICU 09-10 18:16 → MEDTELE 09-12 11:36
PROVIDERS: ADMIT Hospitalist; ATTEND Internal Medicine
PROC: 0DJ08ZZ Inspection of Upper Intestinal Tract, Via Natural or Artificial Opening Endoscopic (ICD-10-PCS; principal; 2017-09-07)
PROC: 30233N1 Transfusion of Nonautologous Red Blood Cells into Peripheral Vein, Percutaneous Approach (ICD-10-PCS; 2017-09-07)
PROC: 0DB68ZX Excision of Stomach, Via Natural or Artificial Opening Endoscopic, Diagnostic (ICD-10-PCS; 2017-09-11)
PROC: 0T9B70Z Drainage of Bladder with Drainage Device, Via Natural or Artificial Opening (ICD-10-PCS; 2017-09-15)
DX: K92.1 Melena (principal); D62 Acute posthemorrhagic anemia; D68.9 Coagulation defect, unspecified; I10 Essential (primary) hypertension; G47.33 Obstructive sleep apnea (adult) (pediatric); E78.5 Hyperlipidemia, unspecified; E66.9 Obesity, unspecified; I89.0 Lymphedema, not elsewhere classified; I48.0 Paroxysmal atrial fibrillation; M19.90 Unspecified osteoarthritis, unspecified site; Z96.651 Presence of right artificial knee joint; N40.0 Benign prostatic hyperplasia without lower urinary tract symptoms; H26.9 Unspecified cataract; K29.60 Other gastritis without bleeding; K25.9 Gastric ulcer, unspecified as acute or chronic, without hemorrhage or perforation; E83.42 Hypomagnesemia; I95.9 Hypotension, unspecified; R33.9 Retention of urine, unspecified; Q85.00 Neurofibromatosis, unspecified; Z79.82 Long term (current) use of aspirin; Z68.33 Body mass index [BMI] 33.0-33.9, adult; Z85.828 Personal history of other malignant neoplasm of skin; Z88.4 Allergy status to anesthetic agent; Z82.49 Family history of ischemic heart disease and other diseases of the circulatory system; Z80.3 Family history of malignant neoplasm of breast; Z87.891 Personal history of nicotine dependence; Z85.46 Personal history of malignant neoplasm of prostate; Z72.89 Other problems related to lifestyle
CPT/HCPCS: 36415; 80048; 80053; 80162; 82272; 83605; 83735; 84443; 84484; 85014; 85018; 85025; 85610; 86850; 86900; 86901; 86905; 86922; 87077; 87641; 93005; 99156; 99284; A9270-GY; G8978-GP-CK; G8978-GP-CM; G8979-GP-CI; G8987-GO-CK; G8988-GO-CI; J0360; J1160; J2250; J3010; J3475; J3490; P9040

== ENCOUNTER 2017-09-15 07:14 | Inpatient (IN) | payer MEDICARE ==
[2017-09-15] MEDS ORDERED: Magnesium Hydroxide LIQ* 30 ML UDC PO PRN (13:27)
[2017-09-15] MEDS ORDERED: Senna TAB PO PRN (13:27)
[2017-09-15] MEDS: Digoxin TAB* 0.125 MG PO SCH (17:28)
[2017-09-15] MEDS: Omeprazole CAP* 20 MG PO SCH (19:12)
[2017-09-15] MEDS: Docusate CAP* 100 MG PO SCH (20:12)
--- NOTE | 2017-09-15 21:04 | HP ---
HISTORY AND PHYSICAL: DATE OF ADMISSION: 09/15/17 REASON FOR ADMISSION: GI bleed. HISTORY OF ILLNESS: Duncan Medina is an 87-year-old male. He has a long history of atrial fibrillation, is on chronic anticoagulation. Normally, he takes Coumadin for this. The patient in addition had a right total knee replacement done about a year ago. He was having pain and spasms in the right knee. He decided on his own to put himself on Naprosyn, which he had previously been taking before his knee surgery. When his Naprosyn ran out, he put himself on Aleve and was taking frequent Aleve to help with his pain. The patient came into the emergency room on 09/06/17. He said a few days prior to admission, he was constipated and was straining to pass stools and he manually disimpacted himself. As the days passed, he noted some bright red blood in the toilet. He saw more blood in his stools and began to get lightheaded. He came to the emergency room. In the emergency room, he had a hemoglobin of 8.6 and an INR of 4.8. He was admitted to the hospital. He had been seen by Dr. Owen. His Coumadin was stopped and his hemoglobin continued to drop to 7.1, then 5.2, then 4.8. He got multiple units of blood. He had a total of 8 units of blood transfused. He had an endoscopy, which showed a large ulcer in the stomach, but no active bleeding. He was started on omeprazole 20 mg twice a day for 6 weeks. GI recommended starting a baby aspirin a day and stopping his Coumadin. The patient did have difficulties with atrial fibrillation. The patient was started on digoxin and was on his normal beta-donn. The patient was quite weak as a result of his [facility] state. He was felt to have physical therapy and occupational therapy needs. He is now being admitted for inpatient rehab, so that he might return to independent living. PAST MEDICAL HISTORY: Significant for the aforementioned atrial fibrillation as well as right total knee replacement. He has a history of prostate cancer and gets Lupron injections every 4 months. He has obstructive sleep apnea, hyperlipidemia, and lymphedema in his left leg. CURRENT MEDICATIONS: Include: 1. Baby aspirin every day. 2. Digoxin 0.125 mg daily. 3. Toprol-XL daily. 4. Prilosec 20 mg twice a day. 5. Flomax 0.4 mg at bedtime. ALLERGIES: The patient has allergies listed to LIDOCAINE. SOCIAL HISTORY: He is a nonsmoker, nondrinker. He lives with his in a [address] in [place]. There is a couple of steps to enter. He has a bedroom and bathrooms upstairs. He has a half-bath downstairs. REVIEW OF SYSTEMS: The patient reports no current shortness of breath or chest pain. PHYSICAL EXAMINATION VITAL SIGNS: The patient's temperature is 98.3, blood pressure is 90/65, pulse is 110 and irregular, respirations 16. HEENT: His extraocular movements appeared to be intact. Tongue is midline. NECK: Supple with no lymphadenopathy. LUNGS: Sounds clear to auscultation bilaterally. HEART: Sounds are regular. S1 and S2 are audible. ABDOMEN: Soft and nontender. EXTREMITIES: Showed normal muscle bulk and tone. Peripheral pulses were intact. NEUROLOGIC: He was awake, alert, and oriented. Muscle strength was about 4+/5 throughout. FUNCTIONAL EXAM: The patient transfers with min assist. ASSESSMENT: Gastrointestinal bleed in a patient with atrial fibrillation. PLAN: Our plan is to integrate him into a comprehensive and therapeutic rehab program with the following goals: 1. Physical Therapy will work with the patient, they are going to work on functional transfer training and ambulation training with a walker. 2. Occupational Therapy will see the patient, work on his activities of daily living including toileting and toilet transfers. 3. Sequential compression devices for DVT prophylaxis. Anticoagulation at this point is contraindicated. 4. For his AFib, we are going to continue the digoxin and the Toprol-XL. 5. We will also continue an aspirin a day for his atrial fibrillation. 6. For his ulcer, we will continue the Prilosec twice a day. 7. For prostate problems, we will continue with Flomax 0.4 mg at bedtime. 8. [facility] [employer] will be closely involved to make sure that any services and equipment that the patient requires are in place prior to discharge. 9. Family training as appropriate. 10. Home with appropriate services. ESTIMATED LENGTH OF STAY: Ten days. [id number]/[facility] #: [id number] DONALD
[2017-09-15] MEDS: Methocarbamol TAB* 500 MG PO PRN (21:47)
[2017-09-16 06:06] LABS: ABS Basophils 0.1 10^3/ul (0-0.2); ABS Eosinophils 0.3 10^3/ul (0-0.6); ABS Lymphocytes 0.9 10^3/ul (1.0-4.8); ABS Monocytes 0.7 10^3/ul (0-0.8); ABS Neutrophils 5.4 10^3/ul (1.5-7.7); ABS Nucleated RBC 0 10^3/ul; Eosinophil % 3.5 % (0-6); Hematocrit 26 % (42-52); Hemoglobin 8.8 g/dl (14.0-18.0); Lymphocyte % 12.8 % (25-47); Mean Corpuscular HGB Conc 34 g/dl (31-36); Mean Corpuscular Hemoglobin 31 pg (27-31); Mean Corpuscular Volume 89 fL (80-94); Mean Platelet Volume 7.9 um3 (7.4-10.4); Nucleated Red Blood Cells % 0; Platelet Count 296 10^3/ul (150-450); Red Blood Count 2.86 10^6/ul (4.0-5.4); Red Cell Distribution Width 16 % (10.5-15); White Blood Count 7.4 10^3/ul (3.5-10.8)
[2017-09-16 06:35] LABS: EGFR Non-African American 94.4 (>60)
[2017-09-16] MEDS: Aspirin EC TAB* 81 MG TAB.EC PO SCH (07:42)
[2017-09-16] MEDS: Omeprazole CAP* 20 MG PO SCH ×2 (07:43→16:25)
[2017-09-16] MEDS: Docusate CAP* 100 MG PO SCH ×2 (07:45→20:28)
[2017-09-16] MEDS: Metoprolol Succinate XL TAB* 50 MG PO SCH (09:04)
[2017-09-16] MEDS: Digoxin TAB* 0.125 MG PO SCH (16:25)
[2017-09-16] MEDS: Methocarbamol TAB* 500 MG PO PRN (18:19)
[2017-09-16] MEDS: Tamsulosin CAP* 0.4 MG PO SCH (20:28)
--- NOTE | 2017-09-16 21:43 | PN ---
Progress Note Date of Service: 09/16/17 Note: DANNY MORALEZ was visited. Therapy notes read and reviewed. He feels like he did well with therapy and feels like his strength is returning. Current Medications: Active Medications Generic Name Dose Route Start Last Admin Trade Name Freq PRN Reason Stop Dose Admin Acetaminophen 650 mg 09/15/17 13:27 Tylenol Tab* PO Q6H PRN FEVER/PAIN Aspirin 81 mg 09/16/17 09:00 09/16/17 07:42 Aspirin Ec Tab* PO 81 mg DAILY ANUPAM Administration Digoxin 0.125 mg 09/15/17 17:00 09/16/17 16:25 Lanoxin Tab* PO 0.125 mg 1700 ANUPAM Administration Docusate Sodium 100 mg 09/15/17 21:00 09/16/17 20:28 Colace Cap* PO Not Given BID ANUPAM Magnesium Hydroxide 30 ml 09/15/17 13:27 Milk Of Magnsocrates Liq* PO Q6H PRN CONSTIPATION Methocarbamol 750 mg 09/15/17 19:30 09/16/17 18:19 Robaxin Tab* PO 750 mg Q6H PRN Administration SPASMS Metoprolol Succinate 50 mg 09/16/17 09:00 09/16/17 09:04 Toprol Xl Tab* PO 50 mg DAILY ANUPAM Administration Omeprazole 20 mg 09/15/17 16:30 09/16/17 16:25 Prilosec Cap* PO 20 mg BID AC ANUPAM Administration Senna 2 tab 09/15/17 13:27 Senokot Tab* PO BEDTIME PRN CONSTIPATION Tamsulosin HCl 0.4 mg 09/16/17 21:00 09/16/17 20:28 Flomax Cap* PO 0.4 mg BEDTIME ANUPAM Administration Vital Signs: Vital Signs Temp Pulse Resp BP Pulse Ox 97.5 F 74 16 99/57 95 09/16/17 15:47 09/16/17 16:25 09/16/17 20:27 09/16/17 15:47 09/16/17 16:47 Lab Results: Laboratory Results - last 24 hr 09/16/17 09/16/17 05:37 05:37 WBC 7.4 RBC 2.86 L Hgb 8.8 L Hct 26 L MCV 89 MCH 31 MCHC 34 RDW 16 H Plt Count 296 MPV 7.9 Neut % (Auto) 73.6 Lymph % (Auto) 12.8 L [place] % (Auto) 9.1 H Eos % (Auto) 3.5 Baso % (Auto) 1.0 Absolute Neuts (auto) 5.4 Absolute Lymphs (auto) 0.9 L Absolute Monos (auto) 0.7 Absolute Eos (auto) 0.3 Absolute Basos (auto) 0.1 Absolute Nucleated RBC 0 Nucleated RBC % 0 Sodium 139 Potassium 3.9 Chloride 103 Carbon Dioxide 31 Anion Gap 5 BUN 16 Creatinine 0.78 Est GFR ( Amer) 121.4 Est GFR (Non-Af Amer) 94.4 BUN/Creatinine Ratio 20.5 H Glucose 97 Calcium 8.5 L Total Bilirubin 1.00 AST 14 ALT 15 Alkaline Phosphatase 54 Total Protein 4.9 L Albumin 2.7 L Globulin 2.2 Albumin/Globulin Ratio 1.2 Exam: LUNGS: Clear HEART: Irreg rhythm ABDOMEN: Soft EXTREMITIES: edema LLE Assessment/Plan: 1. Weakness after GI Bleed: PT/OT. He received 8 units of blood during acute hospital stay 2. GI Bleed: Omeprazole BID. Upper endoscopy showed a large healing cratered gastric ulcer 3. Atrial Fibrillation: ASA/Dig/Toprol 4. Prostate Cancer: Lupron from Urology. Flomax 5. Lymphedema: Trying to get Circaid Velcro wraps and a compression unit for home use 09/16/17 21:50
[2017-09-17] MEDS: Aspirin EC TAB* 81 MG TAB.EC PO SCH (07:39)
[2017-09-17] MEDS: Omeprazole CAP* 20 MG PO SCH ×2 (07:39→16:47)
[2017-09-17] MEDS: Docusate CAP* 100 MG PO SCH ×2 (07:40→20:14)
[2017-09-17] MEDS: Metoprolol Succinate XL TAB* 50 MG PO SCH (07:44)
[2017-09-17] MEDS: Digoxin TAB* 0.125 MG PO SCH (16:47)
--- NOTE | 2017-09-17 18:01 | PN ---
Progress Note Date of Service: 09/17/17 Note: DUNCAN MORALEZ was visited. Therapy notes read and reviewed. I met with Duncan and his . His Hemoglobin was 8.8 yesterday, seems stable, will recheck tomorrow Current Medications: Active Medications Generic Name Dose Route Start Last Admin Trade Name Freq PRN Reason Stop Dose Admin Acetaminophen 650 mg 09/15/17 13:27 Tylenol Tab* PO Q6H PRN FEVER/PAIN Aspirin 81 mg 09/16/17 09:00 09/17/17 07:39 Aspirin Ec Tab* PO 81 mg DAILY ANUPAM Administration Digoxin 0.125 mg 09/15/17 17:00 09/17/17 16:47 Lanoxin Tab* PO 0.125 mg 1700 ANUPAM Administration Docusate Sodium 100 mg 09/15/17 21:00 09/17/17 07:40 Colace Cap* PO 100 mg BID ANUPAM Administration Magnesium Hydroxide 30 ml 09/15/17 13:27 Milk Of Magnesia Liq* PO Q6H PRN CONSTIPATION Methocarbamol 750 mg 09/15/17 19:30 09/16/17 18:19 Robaxin Tab* PO 750 mg Q6H PRN Administration SPASMS Metoprolol Succinate 50 mg 09/16/17 09:00 09/17/17 07:44 Toprol Xl Tab* PO 50 mg DAILY ANUPAM Administration Omeprazole 20 mg 09/15/17 16:30 09/17/17 16:47 Prilosec Cap* PO 20 mg BID AC ANUPAM Administration Senna 2 tab 09/15/17 13:27 Senokot Tab* PO BEDTIME PRN CONSTIPATION Tamsulosin HCl 0.4 mg 09/16/17 21:00 09/16/17 20:28 Flomax Cap* PO 0.4 mg BEDTIME ANUPAM Administration Vital Signs: Vital Signs Temp Pulse Resp BP Pulse Ox 97.5 F 94 18 115/60 97 09/17/17 15:56 09/17/17 16:47 09/17/17 15:56 09/17/17 15:56 09/17/17 15:56 Exam: LUNGS: Clear HEART: Irreg rhythm ABDOMEN: Soft EXTREMITIES: edema RLE Assessment/Plan: 1. Weakness after GI Bleed: PT/OT. He received 8 units of blood during acute hospital stay 2. GI Bleed: Omeprazole BID. Upper endoscopy showed a large healing cratered gastric ulcer 3. Atrial Fibrillation: ASA/Dig/Toprol 4. Prostate Cancer: Lupron from Urology. Flomax 5. Lymphedema: Circaid Velcro wraps and trying to get a compression unit for home use 6. DVT Prophylaxis: Anticoagulation contraindicated. Using SCDs 7. Right TKA: Trying to get knee into extension 09/17/17 18:03
[2017-09-17] MEDS: Tamsulosin CAP* 0.4 MG PO SCH (20:06)
[2017-09-17] MEDS: Methocarbamol TAB* 500 MG PO PRN (20:06)
[2017-09-18] MEDS: Omeprazole CAP* 20 MG PO SCH ×2 (06:03→16:52)
[2017-09-18 06:28] LABS: Hematocrit 28 % (42-52); Hemoglobin 9.5 g/dl (14.0-18.0); Mean Corpuscular HGB Conc 33 g/dl (31-36); Mean Corpuscular Hemoglobin 30 pg (27-31); Mean Corpuscular Volume 90 fL (80-94); Mean Platelet Volume 7.5 um3 (7.4-10.4); Platelet Count 320 10^3/ul (150-450); Red Blood Count 3.16 10^6/ul (4.0-5.4); Red Cell Distribution Width 16 % (10.5-15); White Blood Count 5.7 10^3/ul (3.5-10.8)
[2017-09-18] MEDS: Metoprolol Succinate XL TAB* 50 MG PO SCH (09:45)
[2017-09-18] MEDS: Aspirin EC TAB* 81 MG TAB.EC PO SCH (09:45)
[2017-09-18] MEDS: Docusate CAP* 100 MG PO SCH ×2 (10:11→20:12)
--- NOTE | 2017-09-18 11:47 | PN ---
Progress Note Date of Service: 09/18/17 Note: DANNY MORALEZ was visited. Nursing and therapy notes read and reviewed. No chest pain, shortness of breath or abdominal pain. Has had small bowel movements without clear blood. Current Medications: Active Medications Generic Name Dose Route Start Last Admin Trade Name Freq PRN Reason Stop Dose Admin Acetaminophen 650 mg 09/15/17 13:27 Tylenol Tab* PO Q6H PRN FEVER/PAIN Aspirin 81 mg 09/16/17 09:00 09/18/17 09:45 Aspirin Ec Tab* PO 81 mg DAILY ANUPAM Administration Digoxin 0.125 mg 09/15/17 17:00 09/17/17 16:47 Lanoxin Tab* PO 0.125 mg 1700 ANUPAM Administration Docusate Sodium 100 mg 09/15/17 21:00 09/18/17 10:11 Colace Cap* PO Not Given BID ANUPAM Magnesium Hydroxide 30 ml 09/15/17 13:27 Milk Of Magnesia Liq* PO Q6H PRN CONSTIPATION Methocarbamol 750 mg 09/15/17 19:30 09/17/17 20:06 Robaxin Tab* PO 750 mg Q6H PRN Administration SPASMS Metoprolol Succinate 50 mg 09/16/17 09:00 09/18/17 09:45 Toprol Xl Tab* PO 50 mg DAILY ANUPAM Administration Omeprazole 20 mg 09/15/17 16:30 09/18/17 06:03 Prilosec Cap* PO 20 mg BID AC ANUPAM Administration Senna 2 tab 09/15/17 13:27 Senokot Tab* PO BEDTIME PRN CONSTIPATION Tamsulosin HCl 0.4 mg 09/16/17 21:00 09/17/17 20:06 Flomax Cap* PO 0.4 mg BEDTIME ANUPAM Administration Vital Signs: Vital Signs Temp Pulse Resp BP Pulse Ox 99.2 F 114 20 145/80 97 09/18/17 05:56 09/18/17 05:56 09/18/17 05:56 09/18/17 05:56 09/18/17 05:56 I manually rechecked HR and got 92. Lab Results: Laboratory Results - last 24 hr 09/18/17 06:09 WBC 5.7 RBC 3.16 L Hgb 9.5 L Hct 28 L MCV 90 MCH 30 MCHC 33 RDW 16 H Plt Count 320 MPV 7.5 Exam: GEN: no acute distress. alert and appropriate. LUNGS: Clear to auscultation bilaterally. HEART: Irregularly irregular rhythm ABDOMEN: + bowel sounds, soft, non-tender, non-distended EXTREMITIES: edema RLE with known lymphedema Assessment/Plan: 87yo man with chronic atrial fibrillation s/p GI bleed while taking coumadin and nsaid. 1. Weakness after GI Bleed: PT/OT. He received 8 units of blood during acute hospital stay 2. GI Bleed: Omeprazole BID. Upper endoscopy showed a large healing cratered gastric ulcer. H/H is stable. 3. Atrial Fibrillation: ASA/Dig/Toprol. Take pulse manually. 4. Prostate Cancer: Lupron from Urology. Flomax 5. Lymphedema: Circaid Velcro wraps and trying to get a compression unit for home use 6. DVT Prophylaxis: Anticoagulation contraindicated. 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 Advanced directives: full code. is hcp. 9. Dispo: will discuss today at IPOC meeting 09/18/17 11:55
--- NOTE | 2017-09-18 12:40 | PMRUTEAM ---
PMRU: Team Meeting Current Status: Nursing: Current Status Skin Deviations [groin] Other Skin Deviations [Left Heel] Other Skin Deviation Description [ healed groin] Skin Deviation Description [ spanko boot in place Left Heel] Physical Therapy: Current Status Bed Mobility Assistance Independent Transfer Moblility Assistance Supervision,Contact Guard Assist Transfer/Bed Mobility Rolling Walker Recommended Devices Ambulation Assistance Contact Guard Assist Ambulation Assistive Devices Rollator Walker Number of Feet Patient 110' Ambulated Stairs Assistance Contact Guard Assist Stairs Recommended Devices Two Rails Number of Stairs 5 Objective Comments Occupational Therapy: Current Status Upper Body Dressing set up Lower Body Dressing Mod Asst except dependent for socks, shoes and compression garment Bathing Min Assist Toileting Min Assist Shower Transfer Contact Guard Assist Eating set up Rec Therapy: Current Status Summary of Assessment and Pt. and his were in the room during our Clinical Impression conversation. Both were very talkative and engaged in conversation. Pt. was open to continued leisure visits while on the unit. Treatment Goals Pt. will engage in leisure activities while on the unit. Treatment Plan Provide RT services and encourage involvement. Social Work: Current Status Discharge Plan return home with home care svs and family support Potential for Family Training pt's is involved and attentive Anticipated Discharge Home Destination Discharge With return home with home care svs and family support Goals: Physical Therapy: Initial Goals Bed Mobility Assistance Independent Transfer Mobility Assistance Independent Transfer/Bed Mobility Rollator Walker Recommended Devices Ambulation Independent Ambulation Recommended Devices Rollator Walker Ambulation Distance 150 Stairs Assistance Independent Stair Recommended Devices Two Rails Number of Stairs 15 Occupational Therapy: Initial Goals Goals to be Completed in (Days 10-14 ) Upper Body Bathing Routine Independent Lower Body Bathing Routine Min assist Upper Body Dressing Routine Independent Lower Body Dressing Routine Min assist Toilet Hygeine and Clothing Modified Independent with Management Routine Toilet Transfer Routine Modified Independent with Step-In Shower Transfer Supervision/Set Up Routine Functional Transfers for ADL Modified Independent with Grooming Routine Independent Feeding Routine Modified Independent with Nutrition: Goals Intervention Goals 1. pt will tolerate po diet without n/v/abd pain 2. adequate po intake, when able, to maintain hydration and lean body mass without add'l wt gain 3. serum electrolytes will be maintained WNL 4. regulation of bowel pattern; no c/o constipation or diarrhea Social Work: Goals Discharge Plan return home with home care svs and family support Potential for Family Training pt's is involved and attentive Anticipated Discharge Home Destination Discharge With return home with home care svs and family support Care Plan: Care Plan ADL's - Improve/Maintain Start: 09/15/17 14:03 Freq: DAILY Status: Active Target: Protocol: Activity Type Activity Date Activity User E-Sign Co-Sign Detail Recorded Client Recorded Date Recorded By Document 09/17/17 12:59 [id number] 09/17/17 12:59 [id number] 09/17/17 12:59 PMRU Outcome: ADL's/ADL Transfers Orders/Interventions Occupational Therapy Evaluation & Treatment Communication Tool in Patient Room Patient to receive OT 5x/wk for 60-120 Therex min/day Self Care Management Group Therapy UE/LE ADL's with Assist Yes: mod I ADL Transfers with Assist Yes: mod I Toileting: Transfers,Clothing Management Yes: mod I ,Hygeine w/Assist Light Kitchen/Laundry w/Assist Yes Progression Toward Outcome/Goals Progressing Outcome/Goals Met Improvement with transfers, bathing and LB dressing today . Cardiovascular- Improve/Maintain Start: 09/15/17 14:04 Freq: DAILY Status: Active Target: Protocol: Activity Type Activity Date Activity User E-Sign Co-Sign Detail Recorded Client Recorded Date Recorded By Document 09/18/17 01:06 [id number] 09/18/17 01:07 [id number] 09/18/17 01:06 PMRU Outcome: Cardiovascular Vital Signs q Shift for 48hrs Then BID Yes Daily Weight Ordered No Current Cardiovascular Outcome/Goal Maintain/ Achieve Baseline HR, BP , Perfusion Improve HR Within Prescribed Parameters Maintain/ Improve Perfusion Maintain/ Achieve Hemodynamic Stability Progression Toward Outcome/Goal Progressing Discharge Planning - Improve/Maintain Start: 09/15/17 14:04 Freq: DAILY Status: Active Target: Protocol: Activity Type Activity Date Activity User E-Sign Co-Sign Detail Recorded Client Recorded Date Recorded By Document 09/18/17 01:06 [id number] 09/18/17 01:07 [id number] 09/18/17 01:06 PMRU Outcome: Discharge Planning Outcome/Goals Demonstrates Understanding of Discharge Plan Progression Toward Outcome/Goals Progressing Education-Improve/Maintain Start: 09/15/17 14:04 Freq: DAILY Status: Active Target: Protocol: Activity Type Activity Date Activity User E-Sign Co-Sign Detail Recorded Client Recorded Date Recorded By Document 09/18/17 01:06 [id number] 09/18/17 01:07 [id number] 09/18/17 01:06 PMRU Outcome: Education Outcome/Goals Encourage Questions Progression Toward Outcome/Goals Progressing /GI-Improve/Maintain Start: 09/15/17 14:04 Freq: DAILY Status: Active Target: Protocol: Activity Type Activity Date Activity User E-Sign Co-Sign Detail Recorded Client Recorded Date Recorded By Document 09/18/17 01:06 [id number] 09/18/17 01:07 [id number] 09/18/17 01:06 PMRU Outcome: Genitourinary/ Gastrointestinal Genitourinary- Outcome/Goals Maintain/ Achieve Adequate Urinary Output Gastrointestinal-Outcome/Goals Prevent Constipation Progression Toward Outcome/Goals - Progressing Progression Toward Outcome/Goals - GI Progressing Medication Administration Start: 09/15/17 14:04 Freq: DAILY Status: Active Target: Protocol: Activity Type Activity Date Activity User E-Sign Co-Sign Detail Recorded Client Recorded Date Recorded By Document 09/18/17 01:06 [id number] 09/18/17 01:07 [id number] 09/18/17 01:06 PMRU Outcome: Medication Administration Assess Patient Knowledge/Teach Med Yes Education for all Meds Outcome/Goals Patient Independent with Medication Administration at Home Demonstrates Understanding Progression Towards Outcome/Goals Progressing Is Patient Going Home on Lovenox? No Skin- Improve/Maintain Start: 09/15/17 14:04 Freq: DAILY Status: Active Target: Protocol: Activity Type Activity Date Activity User E-Sign Co-Sign Detail Recorded Client Recorded Date Recorded By Document 09/18/17 01:06 [id number] 09/18/17 01:07 [id number] 09/18/17 01:06 PMRU Outcome: Skin Skin Risk Level Medium Skin Orders Turn/Position q2hr While in Bed Outcome/Goals Maintain/ Improve Skin Intergrity Progression Toward Outcome/Goals Progressing Medicine Note: Length of Stay: [1 week] Anticipated Discharge Destination: Home Tentative Discharge Date: [09/25/17] Discharged to: [home]
[2017-09-18] MEDS: Digoxin TAB* 0.125 MG PO SCH (16:52)
[2017-09-18] MEDS: Tamsulosin CAP* 0.4 MG PO SCH (20:12)
[2017-09-18] MEDS: Methocarbamol TAB* 500 MG PO PRN (20:13)
[2017-09-19] MEDS: Omeprazole CAP* 20 MG PO SCH ×2 (06:06→16:25)
[2017-09-19] MEDS ORDERED: Polyethylene Glycol 3350* 17 GM PACKET PO PRN (08:44)
[2017-09-19] MEDS: Aspirin EC TAB* 81 MG TAB.EC PO SCH (09:27)
[2017-09-19] MEDS: Docusate CAP* 100 MG PO SCH ×2 (09:27→20:59)
[2017-09-19] MEDS: Metoprolol Succinate XL TAB* 50 MG PO SCH (09:27)
[2017-09-19] MEDS ORDERED: Metoprolol Tartrate TAB* 25 MG PO ONE (10:08)
--- NOTE | 2017-09-19 10:24 | PN ---
Progress Note Date of Service: 09/19/17 Note: DANNY MORALEZ was visited. Nursing and therapy notes read and reviewed. Noted tachcardia in the 110's overnight. He denies any chest pain, shortness of breath, abdominal pain or dizziness. He is eating and drinking. Only having small hard BMs. Current Medications: Active Medications Generic Name Dose Route Start Last Admin Trade Name Freq PRN Reason Stop Dose Admin Acetaminophen 650 mg 09/15/17 13:27 Tylenol Tab* PO Q6H PRN FEVER/PAIN Aspirin 81 mg 09/16/17 09:00 09/19/17 09:27 Aspirin Ec Tab* PO 81 mg DAILY ANUPAM Administration Digoxin 0.125 mg 09/15/17 17:00 09/18/17 16:52 Lanoxin Tab* PO 0.125 mg 1700 ANUPAM Administration Docusate Sodium 100 mg 09/15/17 21:00 09/19/17 09:27 Colace Cap* PO 100 mg BID ANUPAM Administration Magnesium Hydroxide 30 ml 09/15/17 13:27 09/18/17 20:06 Milk Of Magnesia Liq* PO 30 ml Q6H PRN Administration CONSTIPATION Methocarbamol 750 mg 09/15/17 19:30 09/18/17 20:13 Robaxin Tab* PO 750 mg Q6H PRN Administration SPASMS Metoprolol Succinate 50 mg 09/16/17 09:00 09/19/17 09:27 Toprol Xl Tab* PO 50 mg DAILY ANUPAM Administration Omeprazole 20 mg 09/15/17 16:30 09/19/17 06:06 Prilosec Cap* PO 20 mg BID AC ANUPAM Administration Polyethylene Glycol/Electrolytes 17 gm 09/19/17 08:44 Miralax* PO DAILY PRN CONSTIPATION Senna 2 tab 09/15/17 13:27 Senokot Tab* PO BEDTIME PRN CONSTIPATION Tamsulosin HCl 0.4 mg 09/16/17 21:00 09/18/17 20:12 Flomax Cap* PO 0.4 mg BEDTIME ANUPAM Administration Vital Signs: Vital Signs Temp Pulse Resp BP Pulse Ox 99.1 F 114 20 160/78 96 09/19/17 06:06 09/19/17 06:06 09/19/17 06:06 09/19/17 06:06 09/19/17 06:06 I manually checked pulse - 120 Exam: GEN: no acute distress. alert and appropriate. LUNGS: Clear to auscultation bilaterally. HEART: tachycardia and regular rhythm ABDOMEN: + bowel sounds, soft, non-tender, non-distended EXTREMITIES: edema R>L with known lymphedema EKG 09/19/17 shows tachycardia rate 122. Machine reads atrial fibrillation, but it appears regular but difficult to see p-waves. Assessment/Plan: 87yo man with chronic atrial fibrillation s/p GI bleed while taking coumadin and nsaid. 1. Weakness after GI Bleed: PT/OT. He received 8 units of blood during acute hospital stay 2. GI Bleed: Omeprazole BID. Upper endoscopy showed a large healing cratered gastric ulcer. H/H has been stable. 3. Atrial Fibrillation currently not rate controlled in sinus tachycardia: I d/ w Dr. Schuster and consulted the hospitalist group. He has ordered a 1x dose of metoprolol 25mg in addition to what he already received. Pending digoxin level. Patient is asymptomatic. Hospitalist f/u. ASA/Dig/Toprol. Take pulse manually. 4. Prostate Cancer: Lupron from Urology. Flomax 5. Lymphedema: Daily compression garments. 6. DVT Prophylaxis: Anticoagulation contraindicated. 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 Constipation: added miralax prn. 9. Advanced directives: full code. is hcp. 10. Dispo: Estimated d/c date is Monday 09/25 to home with support. Family training on Thursday. 09/19/17 10:20
[2017-09-19 10:38] LABS: ABS Basophils 0.1 10^3/ul (0-0.2); ABS Eosinophils 0.2 10^3/ul (0-0.6); ABS Lymphocytes 0.7 10^3/ul (1.0-4.8); ABS Monocytes 0.6 10^3/ul (0-0.8); ABS Neutrophils 4.8 10^3/ul (1.5-7.7); ABS Nucleated RBC 0 10^3/ul; Eosinophil % 3.3 % (0-6); Hematocrit 30 % (42-52); Lymphocyte % 10.8 % (25-47); Mean Corpuscular HGB Conc 33 g/dl (31-36); Mean Corpuscular Hemoglobin 30 pg (27-31); Mean Corpuscular Volume 90 fL (80-94); Nucleated Red Blood Cells % 0.1; Platelet Count 360 10^3/ul (150-450); Red Blood Count 3.35 10^6/ul (4.0-5.4); Red Cell Distribution Width 16 % (10.5-15); White Blood Count 6.4 10^3/ul (3.5-10.8)
[2017-09-19 11:28] LABS: EGFR Non-African American 82.1 (>60)
--- NOTE | 2017-09-19 14:15 | CONS ---
Amended report to enter date of consultation. CC: Dr. Duarte* CONSULTATION REPORT: DATE OF CONSULT: 09/19/2017. PROVIDER: Mala Toney NP ATTENDING PHYSICIAN: Dr. Schuster (report dictated by Mala Toney NP) PRIMARY CARE PROVIDER: Dr. Way. AUTOMATIC SCREWMAKER: Dr. Duarte. REASON FOR CONSULT: Tachycardia. HISTORY OF PRESENT ILLNESS: Mr. Medina is an 87-year-old male with a past medical history of atrial fibrillation, sinus tachycardia, who was on chronic anticoagulation in which he presented to the emergency department on 09/06/17 with bright red blood per rectum and was treated for a GI bleed. His hemoglobin got as low as 4.8 and received 8 units of blood transfusion. He underwent an endoscopy which showed a large ulcer in the stomach, but no active bleeding and he was started on omeprazole 20 mg p.o. b.i.d. for 6 weeks. His Coumadin was discontinued and started on a baby aspirin. He was transferred to [facility] subacute rehab on 09/15/17 for generalized weakness for rehab services before returning to his home environment. Today, it was noted by the nurse while taking vital signs that there was noted tachycardia with a rate of 120 as well as his blood pressure was systolically in the 180s. The patient was asymptomatic. An EKG was performed, which showed sinus tachycardia with a rate of 122. Hospital Medicine was asked to consult for sinus tachycardia. The patient was seen and evaluated at the bedside. His was present during the examination. The patient denies any complaints and reports that he is feeling quite well. He also reports that he was hospitalized back in October 2016 for sinus tachycardia. He was admitted to the hospitalist service at that time for a workup for possible atrial fibrillation. In reviewing his hospitalization and record, as well as discussing with the patient, atrial fibrillation has never been 100% diagnosed; however, the thought was maybe he was going in and out of it. He has been worked up by Dr. Duarte, procurement representative, and the recommendation was to be anticoagulated. Per the patient, he has had this intermittent problem with sinus tachycardia and it is unclear if it is truly AFib or burst of sinus tachycardia. Today, when it was discovered the patient has had a tachycardia with a rate of 122, attending physician, Dr. Schuster, was called and he prescribed 1 dose of metoprolol tartrate 25 mg p.o. x1. On my evaluation, the patient's heart rate is currently 63 and regular, and his blood pressure has come down and is now 100 /60. Again, the patient remains asymptomatic. Denies shortness of breath, chest pain, or palpitations. He reports overall today he feels well. A CBC and BMP were sent and it is noted that his H and H is 10 and 30, which is much improvement since his initial admission. He has no leukocytosis and his BMP is unremarkable. He denies any recent fevers or chills. He does complain of constipation and no bowel movements for a couple of days. Otherwise, he is feeling well. Denies history of pulmonary embolism and no history of coronary artery disease. He does report he had a cardiac catheterization some years ago , which was normal. PAST MEDICAL HISTORY: 1. Recent GI bleed with acute blood loss anemia. 2. Atrial fibrillation ?, sinus tachycardia ?, was previously on anticoagulation, which currently has been discontinued and is on aspirin only. 3. Hypertension. 4. History of prostate carcinoma. 5. Obstructive sleep apnea. 6. Hyperlipidemia. 7. Lymphedema. 8. Neurofibromatosis. 9. History of basal cell carcinoma. 10. Obesity. 11. Arthritis. CURRENT MEDICATIONS: 1. Acetaminophen 650 mg p.o. q.6 hours p.r.n. 2. Aspirin 81 mg p.o. daily. 3. Digoxin 0.125 mg p.o. daily at 1700. 4. Colace 100 mg p.o. b.i.d. 5. Milk of mag 30 mL p.o. q.6 hours p.r.n. 6. Robaxin 750 mg p.o. q.6 hours p.r.n. 7. Metoprolol XL 50 mg p.o. daily. 8. Omeprazole 20 mg p.o. b.i.d. 9. MiraLAX 17 g p.o. daily p.r.n. 10. Senna 2 tabs p.o. daily p.r.n. 11. Flomax 0.4 mg p.o. bedtime. ALLERGIES: LIDOCAINE. FAMILY HISTORY: Father at 68 of an NH. Mother had Parkinson's disease and from pneumonia. He has a sister with heart disease, who at 70 related to CAD. SOCIAL HISTORY: The patient lives at home with his , who is his healthcare proxy. He has a history of tobacco abuse, quitting at 1958. REVIEW OF SYSTEMS: A 14-point review of systems was performed, other pertinent positives and negative as mentioned in history of present illness. Otherwise, negative. PHYSICAL EXAM: General Appearance: Very pleasant elderly male, alert and oriented x3, in no acute distress. Vital Signs: Temperature 99.1, heart rate 63, respirations 18, pulse oximetry 98% on room air, blood pressure of 100/60. HEENT: Head is normocephalic, atraumatic. Moist mucous membranes. Neck is supple. Lungs are clear to auscultation bilaterally. Good aeration throughout. Cardiac: S1, S2. Regular rate and rhythm. Abdomen: Soft, nontender, nondistended. Bowel sounds throughout. Extremities: No clubbing, cyanosis. Neuro: Alert and oriented x3. Cranial nerves II through XII are grossly intact. ASSESSMENT AND PLAN: Mr. Duncan Medina is an 87-year-old male with a past medical history as stated above, who was noted to have tachycardia with heart rate in the 120s and Hospital Medicine was asked to consult. Tachycardia. In reviewing the patient's EKG, it appears to be a regular rhythm. He does have a noted history of sinus tachycardia with similar prior EKGs. He is asymptomatic. It resolved with metoprolol tartrate 25 mg p.o. x1 and now his heart rate is noted to be in the 60s. We will obtain another followup EKG at this time. Low suspicion for a pulmonary embolism. His HH is stable. He does not appear to be dehydrated and has appropriate intake and output. At this point, the plan is increase his digoxin to 0.25 mg p.o. daily at 1700 up from 0.125 mg daily. I think his blood pressure will tolerate this better than increase his metoprolol. His digoxin level today was 0.8. Plan to recheck the digoxin level on 09/20/17. The tentative plan is for the patient to be discharged this coming Thursday. Recommended he follow up with his procurement representative, Dr. Duarte, as well as his PCP and will need to have an outpatient digoxin level. I have also asked the nursing staff to obtain vital signs q.4 hours x24 hours. I discussed this case with Dr. Shabazz and Dr. Schuster, who agree with plan of care. TIME SEEN: Approximately 45 minutes was spent on this consultation. MALA TONEY, STUDENT SUCCESS ADVISOR [id number]/[facility] #: [id number] DONALD
[2017-09-19] MEDS: Digoxin TAB* 0.25 MG PO SCH (16:54)
[2017-09-19] MEDS: Methocarbamol TAB* 500 MG PO PRN (20:59)
[2017-09-19] MEDS: Tamsulosin CAP* 0.4 MG PO SCH (20:59)
[2017-09-20] MEDS: Omeprazole CAP* 20 MG PO SCH ×2 (07:35→16:30)
[2017-09-20] MEDS: Metoprolol Succinate XL TAB* 50 MG PO SCH (07:35)
[2017-09-20] MEDS: Aspirin EC TAB* 81 MG TAB.EC PO SCH (07:36)
[2017-09-20] MEDS: Docusate CAP* 100 MG PO SCH ×2 (07:36→20:36)
--- NOTE | 2017-09-20 09:57 | PN ---
Progress Note Date of Service: 09/20/17 Note: DANNY MORALEZ was visited. Nursing notes read and reviewed. Appreciate hospitalist consultation and follow-up. Patient denies chest pain, shortness of breath or abdominal pain. He feels good. Current Medications: Active Medications Generic Name Dose Route Start Last Admin Trade Name Freq PRN Reason Stop Dose Admin Acetaminophen 650 mg 09/15/17 13:27 Tylenol Tab* PO Q6H PRN FEVER/PAIN Aspirin 81 mg 09/16/17 09:00 09/20/17 07:36 Aspirin Ec Tab* PO 81 mg DAILY ANUPAM Administration Digoxin 0.25 mg 09/19/17 17:00 09/19/17 16:54 Lanoxin Tab* PO 0.25 mg 1700 ANUPAM Administration Docusate Sodium 100 mg 09/15/17 21:00 09/20/17 07:36 Colace Cap* PO 100 mg BID ANUPAM Administration Magnesium Hydroxide 30 ml 09/15/17 13:27 09/18/17 20:06 Milk Of Magnesia Liq* PO 30 ml Q6H PRN Administration CONSTIPATION Methocarbamol 750 mg 09/15/17 19:30 09/19/17 20:59 Robaxin Tab* PO 750 mg Q6H PRN Administration SPASMS Metoprolol Succinate 50 mg 09/16/17 09:00 09/20/17 07:35 Toprol Xl Tab* PO 50 mg DAILY ANUPAM Administration Omeprazole 20 mg 09/15/17 16:30 09/20/17 07:35 Prilosec Cap* PO 20 mg BID AC ANUPAM Administration Polyethylene Glycol/Electrolytes 17 gm 09/19/17 08:44 09/19/17 15:22 Miralax* PO 17 gm DAILY PRN Administration CONSTIPATION Senna 2 tab 09/15/17 13:27 Senokot Tab* PO BEDTIME PRN CONSTIPATION Tamsulosin HCl 0.4 mg 09/16/17 21:00 09/19/17 20:59 Flomax Cap* PO 0.4 mg BEDTIME ANUPAM Administration Vital Signs: Vital Signs 09/19/17 09/19/17 09/19/17 11:13 11:21 11:55 Temperature 97.8 F Pulse Rate 121 120 63 Respiratory Rate Blood Pressure 182/78 100/60 (mmHg) O2 Sat by Pulse 96 Oximetry 09/19/17 09/19/17 09/19/17 12:30 15:30 16:54 Temperature 99.2 F Pulse Rate 83 80 72 Respiratory 20 Rate Blood Pressure 100/58 108/60 (mmHg) O2 Sat by Pulse Oximetry 09/19/17 09/19/17 09/19/17 20:10 20:59 21:31 Temperature Pulse Rate 76 Respiratory 18 Rate Blood Pressure 106/66 (mmHg) O2 Sat by Pulse Oximetry 09/19/17 09/19/17 09/19/17 22:59 23:07 23:22 Temperature Pulse Rate 90 Respiratory 18 20 Rate Blood Pressure 118/70 (mmHg) O2 Sat by Pulse Oximetry 09/20/17 09/20/17 09/20/17 03:23 06:17 07:00 Temperature 98.3 F 98.3 F Pulse Rate 88 91 86 Respiratory 16 Rate Blood Pressure 121/68 122/72 (mmHg) O2 Sat by Pulse 94 93 Oximetry 09/20/17 08:00 Temperature Pulse Rate Respiratory 16 Rate Blood Pressure (mmHg) O2 Sat by Pulse Oximetry Lab Results: Laboratory Results - last 24 hr 09/19/17 09/19/17 09/19/17 10:09 10:20 10:20 WBC 6.4 RBC 3.35 L Hgb 10.0 L Hct 30 L MCV 90 MCH 30 MCHC 33 RDW 16 H Plt Count 360 MPV 8.0 Neut % (Auto) 74.9 Lymph % (Auto) 10.8 L [place] % (Auto) 9.2 H Eos % (Auto) 3.3 Baso % (Auto) 1.8 Absolute Neuts (auto) 4.8 Absolute Lymphs (auto) 0.7 L Absolute Monos (auto) 0.6 Absolute Eos (auto) 0.2 Absolute Basos (auto) 0.1 Absolute Nucleated RBC 0 Nucleated RBC % 0.1 Sodium 138 L Potassium 4.7 Chloride 102 Carbon Dioxide 27 Anion Gap 9 BUN 21 Creatinine 0.88 Est GFR ( Amer) 105.6 Est GFR (Non-Af Amer) 82.1 BUN/Creatinine Ratio 23.9 H Glucose 102 H Calcium 8.8 Magnesium 2.0 Digoxin 0.8 Exam: GEN: no acute distress. alert and appropriate. LUNGS: Clear to auscultation bilaterally. HEART: irregularly irregular rhythm ABDOMEN: + bowel sounds, soft, non-tender, non-distended EXTREMITIES: edema R>L with known lymphedema Assessment/Plan: 87yo man with reported chronic atrial fibrillation s/p GI bleed while taking coumadin and nsaid. 1. Weakness after GI Bleed: PT/OT. He received 8 units of blood during acute hospital stay 2. GI Bleed: Omeprazole BID. Upper endoscopy showed a large healing cratered gastric ulcer. H/H has been stable. 3. Likely Atrial Fibrillation: Resolved episode of tachycardia after additional dose of metoprolol on 09/19. Digoxin dose increased to 0.25mg on . Digoxin level tomorrow he will also need a level after discharge with f/u planned with Dr. Duarte and PCP. Continue ASA/Dig/Toprol. Take pulse manually. 4. Prostate Cancer: Lupron from Urology. Flomax 5. Lymphedema: Daily compression garments. 6. DVT Prophylaxis: Anticoagulation contraindicated due to GI bleed. Using SCDs and ASA 7. 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 Constipation: added miralax prn 9. Advanced directives: full code. is hcp. 10. Dispo: Estimated d/c date is Monday 09/25 to home with support. Family training on Thursday. 09/20/17 09:57
[2017-09-20] MEDS: Digoxin TAB* 0.25 MG PO SCH (17:18)
[2017-09-20] MEDS: Tamsulosin CAP* 0.4 MG PO SCH (20:36)
[2017-09-20] MEDS: Methocarbamol TAB* 500 MG PO PRN (20:38)
[2017-09-21] MEDS: Docusate CAP* 100 MG PO SCH ×2 (07:36→21:56)
[2017-09-21] MEDS: Omeprazole CAP* 20 MG PO SCH ×2 (07:36→16:22)
[2017-09-21] MEDS: Metoprolol Succinate XL TAB* 50 MG PO SCH (07:37)
[2017-09-21] MEDS: Aspirin EC TAB* 81 MG TAB.EC PO SCH (07:37)
[2017-09-21] MEDS: Digoxin TAB* 0.25 MG PO SCH (16:22)
--- NOTE | 2017-09-21 19:49 | PN ---
Progress Note Date of Service: 09/21/17 Note: DANNY MORALEZ was visited. Therapy notes read and reviewed. His huntley catheter was removed earlier and he was able to void. Doing well. Hb stable. Current Medications: Active Medications Generic Name Dose Route Start Last Admin Trade Name Freq PRN Reason Stop Dose Admin Acetaminophen 650 mg 09/15/17 13:27 Tylenol Tab* PO Q6H PRN FEVER/PAIN Aspirin 81 mg 09/16/17 09:00 09/21/17 07:37 Aspirin Ec Tab* PO 81 mg DAILY ANUPAM Administration Digoxin 0.25 mg 09/19/17 17:00 09/21/17 16:22 Lanoxin Tab* PO 0.25 mg 1700 ANUPAM Administration Docusate Sodium 100 mg 09/15/17 21:00 09/21/17 07:36 Colace Cap* PO 100 mg BID ANUPAM Administration Magnesium Hydroxide 30 ml 09/15/17 13:27 09/18/17 20:06 Milk Of Magnesia Liq* PO 30 ml Q6H PRN Administration CONSTIPATION Methocarbamol 750 mg 09/15/17 19:30 09/20/17 20:38 Robaxin Tab* PO 750 mg Q6H PRN Administration SPASMS Metoprolol Succinate 50 mg 09/16/17 09:00 09/21/17 07:37 Toprol Xl Tab* PO 50 mg DAILY ANUPAM Administration Omeprazole 20 mg 09/15/17 16:30 09/21/17 16:22 Prilosec Cap* PO 20 mg BID AC ANUPAM Administration Polyethylene Glycol/Electrolytes 17 gm 09/19/17 08:44 09/19/17 15:22 Miralax* PO 17 gm DAILY PRN Administration CONSTIPATION Senna 2 tab 09/15/17 13:27 Senokot Tab* PO BEDTIME PRN CONSTIPATION Tamsulosin HCl 0.4 mg 09/16/17 21:00 09/20/17 20:36 Flomax Cap* PO 0.4 mg BEDTIME ANUPAM Administration Vital Signs: Vital Signs Temp Pulse Resp BP Pulse Ox 97.8 F 72 18 139/63 95 09/21/17 16:21 09/21/17 16:22 09/21/17 16:21 09/21/17 06:08 09/21/17 16:21 Lab Results: Laboratory Results - last 24 hr 09/21/17 08:45 Digoxin 0.9 Exam: LUNGS: Clear HEART: Irreg rhythm ABDOMEN: Soft EXTREMITIES: edema RLE Assessment/Plan: 1. Weakness after GI Bleed: PT/OT. He received 8 units of blood during acute hospital stay 2. GI Bleed: Omeprazole BID. Upper endoscopy showed a large healing cratered gastric ulcer. H/H has been stable. 3. Atrial Fibrillation: Resolved episode of tachycardia after additional dose of metoprolol on 09/19. Digoxin dose increased to 0.25mg. Continue ASA/Dig/ Toprol. 4. Prostate Cancer: Lupron from Urology. Flomax 5. Lymphedema: Daily compression garments. 6. DVT Prophylaxis: Anticoagulation contraindicated due to GI bleed. 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 Constipation: added miralax prn 9. Advanced directives: full code. is hcp. 10. Urinary retention: huntley d/c'd. Voided. Will check PVR 09/21/17 19:49
[2017-09-21] MEDS: Methocarbamol TAB* 500 MG PO PRN (21:53)
[2017-09-21] MEDS: Tamsulosin CAP* 0.4 MG PO SCH (21:55)
[2017-09-22] MEDS: Acetaminophen TAB* 325 MG PO PRN ×2 (02:50→21:19)
[2017-09-22] MEDS: Omeprazole CAP* 20 MG PO SCH ×2 (06:13→16:29)
[2017-09-22] MEDS: Metoprolol Succinate XL TAB* 50 MG PO SCH (08:28)
[2017-09-22] MEDS: Docusate CAP* 100 MG PO SCH ×2 (08:28→19:25)
[2017-09-22] MEDS: Aspirin EC TAB* 81 MG TAB.EC PO SCH (08:28)
--- NOTE | 2017-09-22 12:38 | PMRUTEAM ---
PMRU: Team Meeting Current Status: Nursing: Current Status Skin Deviations [No skin Other issues noted] Skin Deviations [groin] Other Skin Deviations [Left Heel] Other Skin Deviation Description [No - skin issues noted] Skin Deviation Description [ reddened groin] Skin Deviation Description [ small crack to left heel. Dryness around area. Left Heel] Physical Therapy: Current Status Bed Mobility Assistance Supervision Transfer Moblility Assistance Supervision Transfer/Bed Mobility Rolling Walker Recommended Devices Transfer Mobility Comment Pt. uses a Rollator 4 w/w for tarnsfers and amb. Ambulation Assistance Supervision Ambulation Assistive Devices Rolling Walker Number of Feet Patient 150' Ambulated Ambulation Comment pt. amb with flexed B knees. Pt. presents a modified reciprocal type gait. Stairs Assistance Supervision Stairs Recommended Devices Two Rails Number of Stairs 15 Objective Comments patient will be prepared for initiation of stair training this afternoon. Occupational Therapy: Current Status Upper Body Dressing Supervision Lower Body Dressing Mod Assist Bathing Min Assist Toileting Supervision Toilet Transfer Supervision Shower Transfer Supervision Eating Supervision Rec Therapy: Current Status Summary of Assessment and RT assessment complete and pt. is aware of RT Clinical Impression services. Pt. has been open to leisure visits and leisure material has been provided. Treatment Goals Pt. will engage in leisure activities while on the unit. Treatment Plan Provide RT services and encourage involvement. Social Work: Current Status Discharge Plan return home with home care svs and family support Potential for Family Training family training is scheduled for 09/23 @ 1pm w / Michelle Anticipated Discharge Home Destination Discharge With home care svs and family support Nutrition: Current Status Monitoring pt is eating nearly 100% of meals consistently. Satisfied w/heart healthy, no caffeine diet. H/H cont to improve. Serum electrolytes wnl 09/19. Had BMs 09/19 and today; becoming softer. Appears to be meeting goals as outlined below. Goals: Physical Therapy: Initial Goals Bed Mobility Assistance Independent Transfer Mobility Assistance Independent Transfer/Bed Mobility Rolling Walker Recommended Devices Ambulation Independent Ambulation Recommended Devices Rolling Walker Ambulation Distance 150 Stairs Assistance Independent Stair Recommended Devices Two Rails Number of Stairs 15 Physical Therapy: Updated Goals Bed Mobility Assistance Independent Transfer Mobility Assistance Independent Transfer/Bed Mobility Rolling Walker Recommended Devices Ambulation Assistance Independent Ambulation Assistive Devices Rolling Walker Ambulation Distance (ft) 150 Stairs Assistance Independent Stairs Recommended Devices Two Rails Number of Stairs 15 Occupational Therapy: Initial Goals Goals to be Completed in (Days 10-14 ) Upper Body Bathing Routine Independent Lower Body Bathing Routine Modified Independent with Upper Body Dressing Routine Independent Lower Body Dressing Routine Modified Independent with Toilet Hygeine and Clothing Modified Independent with Management Routine Toilet Transfer Routine Modified Independent with Step-In Shower Transfer Supervision/Set Up Routine Functional Transfers for ADL Modified Independent with Grooming Routine Independent Feeding Routine Modified Independent with Nutrition: Goals Intervention Goals 1. pt will tolerate po diet without n/v/abd pain 2. adequate po intake, when able, to maintain hydration and lean body mass without add'l wt gain 3. serum electrolytes will be maintained WNL 4. regulation of bowel pattern; no c/o constipation or diarrhea Social Work: Goals Discharge Plan return home with home care svs and family support Potential for Family Training family training is scheduled for 09/23 @ 1pm w / Michelle Anticipated Discharge Home Destination Discharge With home care svs and family support Care Plan: Care Plan ADL's - Improve/Maintain Start: 09/15/17 14:03 Freq: DAILY@1200 Status: Active Target: Protocol: Activity Type Activity Date Activity User E-Sign Co-Sign Detail Recorded Client Recorded Date Recorded By Document 09/17/17 12:59 [id number] 09/17/17 12:59 [id number] 09/17/17 12:59 PMRU Outcome: ADL's/ADL Transfers Orders/Interventions Occupational Therapy Evaluation & Treatment Communication Tool in Patient Room Patient to receive OT 5x/wk for 60-120 Therex min/day Self Care Management Group Therapy UE/LE ADL's with Assist Yes: mod I ADL Transfers with Assist Yes: mod I Toileting: Transfers,Clothing Management Yes: mod I ,Hygeine w/Assist Light Kitchen/Laundry w/Assist Yes Progression Toward Outcome/Goals Progressing Outcome/Goals Met Improvement with transfers, bathing and LB dressing today . Cardiovascular- Improve/Maintain Start: 09/15/17 14:04 Freq: [email or web address]@1200 Status: Active Target: Protocol: Activity Type Activity Date Activity User E-Sign Co-Sign Detail Recorded Client Recorded Date Recorded By Document 09/22/17 02:12 [id number] 09/22/17 02:13 [id number] 09/22/17 02:12 PMRU Outcome: Cardiovascular Vital Signs q Shift for 48hrs Then BID No: Q4H Daily Weight Ordered No Current Cardiovascular Outcome/Goal Maintain/ Achieve Baseline HR, BP , Perfusion Improve HR Within Prescribed Parameters Maintain/ Improve Perfusion Maintain/ Achieve Hemodynamic Stability Progression Toward Outcome/Goal Progressing Discharge Planning - Improve/Maintain Start: 09/15/17 14:04 Freq: DAILY@1200 Status: Active Target: Protocol: Activity Type Activity Date Activity User E-Sign Co-Sign Detail Recorded Client Recorded Date Recorded By Document 09/22/17 02:12 [id number] [id number] 09/22/17 02:13 [id number] 09/22/17 02:12 PMRU Outcome: Discharge Planning Update Patient Family No Outcome/Goals Demonstrates Understanding of Discharge Plan Progression Toward Outcome/Goals Progressing Education-Improve/Maintain Start: 09/15/17 14:04 Freq: DAILY@1200 Status: Active Target: Protocol: Activity Type Activity Date Activity User E-Sign Co-Sign Detail Recorded Client Recorded Date Recorded By Document 09/22/17 02:12 [id number] 09/22/17 02:13 [id number] 09/22/17 02:12 PMRU Outcome: Education Outcome/Goals Encourage Questions Progression Toward Outcome/Goals Progressing Outcome/Goals Met Comment Pt very active in plan of care /GI-Improve/Maintain Start: 09/15/17 14:04 Freq: DAILY@1200 Status: Active Target: Protocol: Activity Type Activity Date Activity User E-Sign Co-Sign Detail Recorded Client Recorded Date Recorded By Document 09/22/17 02:12 [id number] 09/22/17 02:13 [id number] 09/22/17 02:12 PMRU Outcome: Genitourinary/ Gastrointestinal Genitourinary- Outcome/Goals Maintain/ Achieve Adequate Urinary Output Gastrointestinal-Outcome/Goals Prevent Constipation Progression Toward Outcome/Goals - Progressing Progression Toward Outcome/Goals - GI Progressing Outcome/Goals Met Comment pt frequently using urinal. Medication Administration Start: 09/15/17 14:04 Freq: DAILY@1200 Status: Active Target: Protocol: Activity Type Activity Date Activity User E-Sign Co-Sign Detail Recorded Client Recorded Date Recorded By Document 09/22/17 02:12 [id number] 09/22/17 02:13 [id number] 09/22/17 02:12 PMRU Outcome: Medication Administration Assess Patient Knowledge/Teach Med Yes Education for all Meds Outcome/Goals Patient Independent with Medication Administration at Home Demonstrates Understanding Progression Towards Outcome/Goals Progressing Is Patient Going Home on Lovenox? No Skin- Improve/Maintain Start: 09/15/17 14:04 Freq: DAILY@1200 Status: Active Target: Protocol: Activity Type Activity Date Activity User E-Sign Co-Sign Detail Recorded Client Recorded Date Recorded By Document 09/22/17 02:12 [id number] 09/22/17 02:13 [id number] 09/22/17 02:12 PMRU Outcome: Skin Skin Risk Level Low Outcome/Goals Maintain/ Improve Skin Intergrity Progression Toward Outcome/Goals Progressing Medicine Note: Length of Stay: 2 days Anticipated Discharge Destination: Home Tentative Discharge Date: 09/24/17 Discharged to: home
[2017-09-22 14:36] LABS: Urine Appearance Cloudy; Urine Blood 1+ (Negative); Urine Color Yellow; Urine Ketones Negative (Negative); Urine Protein Negative (Negative); Urine Specific Gravity 1.012 (1.010-1.030); Urine Urobilinogen Negative (Negative)
--- NOTE | 2017-09-22 16:55 | PN ---
Progress Note Date of Service: 09/22/17 Note: DANNY MORALEZ was visited. Therapy notes read and reviewed. Discussed in interdisciplinary team rounds. He is doing well and may leave . Current Medications: Active Medications Generic Name Dose Route Start Last Admin Trade Name Freq PRN Reason Stop Dose Admin Acetaminophen 650 mg 09/15/17 13:27 09/22/17 02:50 Tylenol Tab* PO 650 mg Q6H PRN Administration FEVER/PAIN Aspirin 81 mg 09/16/17 09:00 09/22/17 08:28 Aspirin Ec Tab* PO 81 mg DAILY ANUPAM Administration Digoxin 0.25 mg 09/19/17 17:00 09/21/17 16:22 Lanoxin Tab* PO 0.25 mg 1700 ANUPAM Administration Docusate Sodium 100 mg 09/15/17 21:00 09/22/17 08:28 Colace Cap* PO 100 mg BID ANUPAM Administration Magnesium Hydroxide 30 ml 09/15/17 13:27 09/18/17 20:06 Milk Of Magnesia Liq* PO 30 ml Q6H PRN Administration CONSTIPATION Methocarbamol 750 mg 09/15/17 19:30 09/21/17 21:53 Robaxin Tab* PO 750 mg Q6H PRN Administration SPASMS Metoprolol Succinate 50 mg 09/16/17 09:00 09/22/17 08:28 Toprol Xl Tab* PO 50 mg DAILY ANUPAM Administration Omeprazole 20 mg 09/15/17 16:30 09/22/17 16:29 Prilosec Cap* PO 20 mg BID AC ANUPAM Administration Polyethylene Glycol/Electrolytes 17 gm 09/19/17 08:44 09/19/17 15:22 Miralax* PO 17 gm DAILY PRN Administration CONSTIPATION Senna 2 tab 09/15/17 13:27 Senokot Tab* PO BEDTIME PRN CONSTIPATION Tamsulosin HCl 0.4 mg 09/16/17 21:00 09/21/17 21:55 Flomax Cap* PO 0.4 mg BEDTIME ANUPAM Administration Vital Signs: Vital Signs Temp Pulse Resp BP Pulse Ox 97.5 F 89 18 115/60 99 09/22/17 15:36 09/22/17 15:36 09/22/17 15:36 09/22/17 16:14 09/22/17 15:36 Lab Results: Laboratory Results - last 24 hr 09/22/17 14:05 Urine Color Yellow Urine Appearance Cloudy Urine pH 5.0 Ur Specific [place] 1.012 Urine Protein Negative Urine Ketones Negative Urine Blood 1+ A Urine Nitrate Negative Urine Bilirubin Negative Urine Urobilinogen Negative Ur Leukocyte Esterase 3+ A Urine WBC (Auto) 3+(>20/hpf) A Urine RBC (Auto) 1+(3-5/hpf) A Ur Squamous Epith Cells Present A Urine Bacteria Absent Urine Glucose Negative Exam: LUNGS: Clear HEART: Irreg rhythm ABDOMEN: Soft EXTREMITIES: edema RLE Assessment/Plan: 1. Weakness after GI Bleed: PT/OT. He received 8 units of blood during acute hospital stay 2. GI Bleed: Omeprazole BID. Upper endoscopy showed a large healing cratered gastric ulcer. H/H has been stable. 3. Atrial Fibrillation: Resolved episode of tachycardia after additional dose of metoprolol on 09/19. Digoxin dose increased to 0.25mg. Continue ASA/Dig/ Toprol. 4. Prostate Cancer: Lupron from Urology. Flomax 5. Lymphedema: Daily compression garments. 6. DVT Prophylaxis: Anticoagulation contraindicated due to GI bleed. 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 Constipation: added miralax prn 9. Advanced directives: full code. is hcp. 10. Urinary retention: huntley d/c'd. Voided. Will check U/A 09/22/17 16:56
[2017-09-22] MEDS: Levofloxacin TAB* 250 MG PO SCH (17:53)
[2017-09-22] MEDS: Digoxin TAB* 0.25 MG PO SCH (17:53)
[2017-09-22] MEDS: Tamsulosin CAP* 0.4 MG PO SCH (20:25)
[2017-09-23] MEDS: Omeprazole CAP* 20 MG PO SCH ×2 (05:36→16:52)
[2017-09-23] MEDS: Acetaminophen TAB* 325 MG PO PRN ×3 (06:30→20:35)
[2017-09-23 07:55] LABS: ABS Basophils 0.1 10^3/ul (0-0.2); ABS Eosinophils 0.4 10^3/ul (0-0.6); ABS Lymphocytes 0.9 10^3/ul (1.0-4.8); ABS Monocytes 0.5 10^3/ul (0-0.8); ABS Neutrophils 3.3 10^3/ul (1.5-7.7); ABS Nucleated RBC 0 10^3/ul; Eosinophil % 7.9 % (0-6); Hematocrit 29 % (42-52); Lymphocyte % 17.7 % (25-47); Mean Corpuscular HGB Conc 34 g/dl (31-36); Mean Corpuscular Hemoglobin 30 pg (27-31); Mean Corpuscular Volume 89 fL (80-94); Mean Platelet Volume 7.6 um3 (7.4-10.4); Nucleated Red Blood Cells % 0.1; Platelet Count 315 10^3/ul (150-450); Red Blood Count 3.31 10^6/ul (4.0-5.4); Red Cell Distribution Width 16 % (10.5-15); White Blood Count 5.1 10^3/ul (3.5-10.8)
[2017-09-23] MEDS: Metoprolol Succinate XL TAB* 50 MG PO SCH (08:00)
[2017-09-23] MEDS: Aspirin EC TAB* 81 MG TAB.EC PO SCH (08:00)
[2017-09-23] MEDS: Docusate CAP* 100 MG PO SCH ×2 (08:03→20:32)
[2017-09-23] MEDS: Digoxin TAB* 0.25 MG PO SCH (17:25)
[2017-09-23] MEDS: Levofloxacin TAB* 250 MG PO SCH (17:27)
--- NOTE | 2017-09-23 17:37 | PN ---
Progress Note Date of Service: 09/23/17 Note: DANNY MORALEZ was visited. Therapy notes read and reviewed. He had family training that went well today. He is ready for discharge in the morning. He is on Levaquin for a UTI. Hb/Hct stable Current Medications: Active Medications Generic Name Dose Route Start Last Admin Trade Name Freq PRN Reason Stop Dose Admin Acetaminophen 650 mg 09/15/17 13:27 09/23/17 13:07 Tylenol Tab* PO 650 mg Q6H PRN Administration FEVER/PAIN Aspirin 81 mg 09/16/17 09:00 09/23/17 08:00 Aspirin Ec Tab* PO 81 mg DAILY ANUPAM Administration Digoxin 0.25 mg 09/19/17 17:00 09/23/17 17:25 Lanoxin Tab* PO 0.25 mg 1700 ANUPAM Administration Docusate Sodium 100 mg 09/15/17 21:00 09/23/17 08:03 Colace Cap* PO Not Given BID ANUPAM Levofloxacin 250 mg 09/22/17 17:00 09/23/17 17:27 Levaquin Tab* PO 250 mg Q24H ANUPAM Administration Magnesium Hydroxide 30 ml 09/15/17 13:27 09/18/17 20:06 Milk Of Magnesia Liq* PO 30 ml Q6H PRN Administration CONSTIPATION Methocarbamol 750 mg 09/15/17 19:30 09/21/17 21:53 Robaxin Tab* PO 750 mg Q6H PRN Administration SPASMS Metoprolol Succinate 50 mg 09/16/17 09:00 09/23/17 08:00 Toprol Xl Tab* PO 50 mg DAILY ANUPAM Administration Omeprazole 20 mg 09/15/17 16:30 09/23/17 16:52 Prilosec Cap* PO 20 mg BID AC ANUPAM Administration Polyethylene Glycol/Electrolytes 17 gm 09/19/17 08:44 09/19/17 15:22 Miralax* PO 17 gm DAILY PRN Administration CONSTIPATION Senna 2 tab 09/15/17 13:27 Senokot Tab* PO BEDTIME PRN CONSTIPATION Tamsulosin HCl 0.4 mg 09/16/17 21:00 09/22/17 20:25 Flomax Cap* PO 0.4 mg BEDTIME ANUPAM Administration Vital Signs: Vital Signs Temp Pulse Resp BP Pulse Ox 99.1 F 65 20 110/62 96 09/23/17 05:37 09/23/17 17:25 09/23/17 06:30 09/23/17 17:00 09/23/17 05:37 Lab Results: Laboratory Results - last 24 hr 09/23/17 09/23/17 07:38 07:38 WBC 5.1 RBC 3.31 L Hgb 10.0 L Hct 29 L MCV 89 MCH 30 MCHC 34 RDW 16 H Plt Count 315 MPV 7.6 Neut % (Auto) 63.9 Lymph % (Auto) 17.7 L [place] % (Auto) 9.1 H Eos % (Auto) 7.9 H Baso % (Auto) 1.4 Absolute Neuts (auto) 3.3 Absolute Lymphs (auto) 0.9 L Absolute Monos (auto) 0.5 Absolute Eos (auto) 0.4 Absolute Basos (auto) 0.1 Absolute Nucleated RBC 0 Nucleated RBC % 0.1 Sodium 140 Potassium 4.0 Chloride 106 Carbon Dioxide 28 Anion Gap 6 BUN 22 Creatinine 0.93 Est GFR ( Amer) 99.1 Est GFR (Non-Af Amer) 77.0 BUN/Creatinine Ratio 23.7 H Glucose 107 H Calcium 8.8 Total Bilirubin 0.40 AST 15 ALT 18 Alkaline Phosphatase 77 Total Protein 5.7 L Albumin 3.1 L Globulin 2.6 Albumin/Globulin Ratio 1.2 Exam: LUNGS: Clear HEART: Irreg rhythm ABDOMEN: Soft EXTREMITIES: edema RLE Assessment/Plan: 1. Weakness after GI Bleed: PT/OT. He received 8 units of blood during acute hospital stay 2. GI Bleed: Omeprazole BID. Upper endoscopy showed a large healing cratered gastric ulcer. H/H has been stable. 3. Atrial Fibrillation: Resolved episode of tachycardia after additional dose of metoprolol on 09/19. Digoxin dose increased to 0.25mg. Continue ASA/Dig/ Toprol. 4. Prostate Cancer: Lupron from Urology. Flomax 5. Lymphedema: Daily compression garments. 6. DVT Prophylaxis: Anticoagulation contraindicated due to GI bleed. Using SCDs 7. Right TKA: Trying to get knee into full extension 8. Constipation: added miralax prn 9. Advanced directives: full code. is hcp. 10. Urinary tract infection: Levaquin, day 209/23/17 17:39
[2017-09-23] MEDS: Tamsulosin CAP* 0.4 MG PO SCH (20:33)
[2017-09-23] MEDS: Methocarbamol TAB* 500 MG PO PRN (20:34)
[2017-09-24] MEDS: Acetaminophen TAB* 325 MG PO PRN (04:49)
[2017-09-24 05:06] VITALS: BP 155/70
[2017-09-24] MEDS: Omeprazole CAP* 20 MG PO SCH (06:34)
[2017-09-24] MEDS: Metoprolol Succinate XL TAB* 50 MG PO SCH (07:34)
[2017-09-24] MEDS: Aspirin EC TAB* 81 MG TAB.EC PO SCH (07:34)
[2017-09-24] MEDS: Docusate CAP* 100 MG PO SCH (07:45)
--- NOTE | 2017-09-24 23:11 | DS ---
CC: Vito Way MD* DISCHARGE SUMMARY: DATE OF ADMISSION: 09/15/17 DATE OF DISCHARGE: 09/24/17 DISCHARGE DIAGNOSES: 1. GI bleed. 2. Atrial fibrillation. 3. Prostate cancer. 4. Lymphedema. 5. Urinary tract infection. 6. Urinary retention. HISTORY OF ILLNESS AND HOSPITAL COURSE: For complete history of the events leading up to his rehab state, please see the history and physical dictated by me on 09/16/17. While on the rehab unit, the patient's hemoglobin and hematocrit remained stable. No evidence of further GI bleeding was seen. The patient did have an episode of tachycardia. A consultation with the Hospitalist was done. They recommended increasing his beta-donn. The patient had some burning with urination after removing of his Hickman catheter on 09/21/17. He was able to void, however. A urinalysis was sent, which showed a urinary tract infection. He ultimately grew out Enterococcus faecalis. He was started on Levaquin for this. He received 2 doses of Levaquin. The patient was otherwise medically stable. He was seen by Physical Therapy and Occupational Therapy and made good gains with both disciplines. With physical therapy at the time of admission, the patient required moderate amount of assistance to do a transfer. He can ambulate a 100 feet with contact guard, but fatigued easily. With occupational therapy at the time of admission, the patient required min assist for upper body dressing, total assist for lower body dressing, max assist for toileting, min assist for toilet transfers. By the time of discharge, the patient was independent in transfers, independent ambulating a 150 feet using a 4-wheeled walker, independent going up and down 15 steps with 2 rails, independent in dressing. He did require some assist for his leg wraps for his lymphedema. He was independent with toilet transfers, independent in toileting. He did require some assistance with putting his shoes on. The patient's came in for family training, the patient was discharged on 09/24/17. DISCHARGE DIET: Regular with no caffeine. DISCHARGE MEDICATIONS: 1. Aspirin 81 mg orally once a day. 2. Digoxin 0.25 mg daily. 3. Toprol XL 50 mg daily. 4. Omeprazole 20 mg twice a day. 5. Flomax 0.4 mg at bedtime. 6. Levaquin 250 mg daily for 5 more doses. SERVICES AFTER DISCHARGE: Through the visiting nurse services, he will have home nursing and home physical therapy and a home health aide. Follow up with Dr. Vito Way in 1 to 2 weeks. [id number]/[facility] #: [id number] [id number]
== END 2017-09-24 11:30 | disposition home health service (06) | DRG 945 ==
LOC: PMRU 12:53
PROVIDERS: ADMIT Physical Medicine & Rehabilitation; ATTEND Physical Medicine & Rehabilitation
PROC: F07Z5ZZ Bed Mobility Treatment (ICD-10-PCS; principal; 2017-09-15)
PROC: F07Z9ZZ Gait Training/Functional Ambulation Treatment (ICD-10-PCS; 2017-09-15)
PROC: F07Z8ZZ Transfer Training Treatment (ICD-10-PCS; 2017-09-15)
PROC: F08Z0ZZ Bathing/Showering Techniques Treatment (ICD-10-PCS; 2017-09-15)
PROC: F08Z1ZZ Dressing Techniques Treatment (ICD-10-PCS; 2017-09-15)
PROC: F08Z3ZZ Feeding/Eating Treatment (ICD-10-PCS; 2017-09-15)
DX: R53.1 Weakness (principal); K92.2 Gastrointestinal hemorrhage, unspecified; N39.0 Urinary tract infection, site not specified; I48.91 Unspecified atrial fibrillation; I89.0 Lymphedema, not elsewhere classified; B95.2 Enterococcus as the cause of diseases classified elsewhere; R33.9 Retention of urine, unspecified; Z96.651 Presence of right artificial knee joint; C61 Malignant neoplasm of prostate; G47.33 Obstructive sleep apnea (adult) (pediatric); M19.90 Unspecified osteoarthritis, unspecified site; K59.00 Constipation, unspecified; R00.0 Tachycardia, unspecified; E78.5 Hyperlipidemia, unspecified; E66.9 Obesity, unspecified; K25.9 Gastric ulcer, unspecified as acute or chronic, without hemorrhage or perforation; Z79.01 Long term (current) use of anticoagulants; Z79.82 Long term (current) use of aspirin; Z79.899 Other long term (current) drug therapy; Z88.8 Allergy status to other drugs, medicaments and biological substances; Z68.31 Body mass index [BMI] 31.0-31.9, adult; Z85.828 Personal history of other malignant neoplasm of skin; Z82.49 Family history of ischemic heart disease and other diseases of the circulatory system; Z87.891 Personal history of nicotine dependence
CPT/HCPCS: 36415; 80048; 80053; 80162; 81003; 81015; 83735; 85025; 85027; 87077; 87086; 87186; 93005; A9270-GY

== ENCOUNTER 2017-09-26 06:22 | Emergency (ER) | payer MEDICARE ==
--- NOTE | 2017-09-26 07:03 | ED ---
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 Onset/Duration: Gradual Onset Timing: Constant Severity Initially: Moderate Severity Currently: Moderate Location: Flank Character: Burning, Constant Pressure Aggravating Factor(s): Voiding, Straining, Palpation Alleviating Factor(s): Nothing Associated Signs And Symptoms: Back Pain - Allergies/Home Medications Allergies/Adverse Reactions: Allergies Allergy/AdvReac Type Severity Reaction Status Date / Time lidocaine Allergy Anxiety Verified 09/26/17 06:32 PMH/Surg Hx/FS Hx/Imm Hx Previously Healthy: No Cardiovascular History: Reports: Hx Hypercholesterolemia, Hx Hypertension, Other Cardiovascular Problems/Disorders - cardiac cath Respiratory History: Reports: Hx Sleep Apnea - no machine GI History: Reports: Hx Gastrointestinal Bleed, Hx Ulcer History: Reports: Other Problems/Disorders - prostate cancer Musculoskeletal History: Reports: Hx Arthritis, Other Musculoskeletal History - chronic lle lymphedema Sensory History: Reports: Hx Cataracts - mild, Hx Contacts or Glasses Denies: Hx Hearing Aid Opthamlomology History: Reports: Hx Cataracts - mild, Hx Contacts or Glasses - Cancer History Cancer Type, Location and Year: 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 Hx Anesthesia Reactions: No Infectious Disease History: No Infectious Disease History: Denies: Traveled Outside the [place] in Last 30 Days - Family History Known Family History: Positive: Hypertension - Social History Occupation: Retired Lives: With Family Alcohol Use: Occasionally Substance Use Type: Reports: None Smoking Status (MU): Former Smoker Amount Used/How Often: smoked 8 years, 1/2 - 1ppd Review Of Systems Constitutional: Negative: Negative, Fever, Chills, Fatigue Respiratory: Negative: Negative, Shortness Of Breath, Cough Cardiovascular: Negative: Negative, Palpitations, Chest Pain Gastrointestinal: Positive: Other - Suprapubic pain. Negative: Vomiting, Nausea Genitourinary: Positive: Urgency, Other - Urinary retention Neurological: Positive: Negative All Other Systems Reviewed And Are Negative: Yes Physical Exam Triage Information Reviewed: Yes Vital Signs On Initial Exam: Initial Vitals Temp Pulse Resp BP Pulse Ox 97.4 F 61 16 107/51 96 09/26/17 06:25 09/26/17 06:25 09/26/17 06:25 09/26/17 06:25 09/26/17 06:25 Vital Signs Reviewed: Yes Appearance: Positive: Well-Appearing - Pt. sitting on side of bed in NAD. Family present. Skin: Positive: Warm, Dry Head/Face: Positive: Normal Head/Face Inspection Eyes: Positive: Normal Neck: Positive: Supple Respiratory/Lung Sounds: Positive: Clear to Auscultation Cardiovascular: Positive: IRR Abdomen Description: Positive: Other: - Abdomen is soft. Palpable bladder. Mild left CVA tenderness Musculoskeletal: Positive: Normal Neurological: Positive: Normal, CN Intact II-III Psychiatric: Positive: Normal Diagnostics - Vital Signs Vital Signs Temp Pulse Resp BP Pulse Ox 09/26/17 06:25 97.4 F 61 16 107/51 96 - Laboratory Result Diagrams: 09/26/17 07:10 09/26/17 07:10 Lab Statement: Any lab studies that have been ordered have been reviewed, and results considered in the medical decision making process. Complaint Male Course/Dx - Course Course Of Treatment: Pt. presenting to the ER for urinary retention. He was d/c from [facility] 09/24/17 after being admitted for an upper GI bleed. While in the hospital, huntley catheter was placed and pt. developed a UTI. He was started on Levaquin. Huntley cath. was dc and pt. was dc home. He states he has been doing well at home until this morning when he developed bladder and penile pain and difficulty voiding. Denies hematuria. Does have a hx of prostate cancer and is currently on lupron and follows with Dr. Carlson. In the ER today he is afebrile. BP a little low at 109/64. Will obtain labs, u/a, and bladder scan. Bladder scan showed almost 500cc of urine. Huntley catheter was placed. Around 0835 pt.'s heart rate went up to 200bpm on the monitor. Pt. denies CP or palpations. Pt. states he has a hx of a. fib and his HR usually does not tack picker correctly. ECG was obtained at 0840 and shows a a. fib at a rate of 86bpm, no ST elevation or depression. CBC shows chronic anemia. CMP shows mild elevation in cr and BUN from pt.'s baseline at 1.63 and 31. IV fluids ordered. Urinalysis today shows elevated leukocytes, rbcs, no bacteria. Culture from 09/22 is growing enterococcus faecalis susceptible to Levaquin. Reexamination patient is resting comfortably. He is feeling much better and pain has resolved. Case discussed briefly with Dr. Toth. We will send patient home with Huntley catheter. Advised to call his urologist on Thursday for close follow-up appointment. To return to the ER symptoms change or worsen. Patient and understand and agree with plan. - Differential Dx/Diagnosis Differential Diagnosis/HQI/PQRI: Urinary Tract Infection Provider Diagnoses: Urinary retention
[2017-09-26 07:23] LABS: ABS Basophils 0.1 10^3/ul (0-0.2); ABS Eosinophils 0.2 10^3/ul (0-0.6); ABS Lymphocytes 0.7 10^3/ul (1.0-4.8); ABS Monocytes 0.7 10^3/ul (0-0.8); ABS Neutrophils 7.5 10^3/ul (1.5-7.7); ABS Nucleated RBC 0 10^3/ul; Eosinophil % 1.9 % (0-6); Hematocrit 32 % (42-52); Hemoglobin 10.8 g/dl (14.0-18.0); Lymphocyte % 7.4 % (25-47); Mean Corpuscular HGB Conc 34 g/dl (31-36); Mean Corpuscular Hemoglobin 30 pg (27-31); Mean Corpuscular Volume 88 fL (80-94); Mean Platelet Volume 7.5 um3 (7.4-10.4); Nucleated Red Blood Cells % 0; Platelet Count 314 10^3/ul (150-450); Red Blood Count 3.66 10^6/ul (4.0-5.4); Red Cell Distribution Width 16 % (10.5-15); White Blood Count 9.2 10^3/ul (3.5-10.8)
[2017-09-26 07:39] LABS: EGFR Non-African American 40.3 (>60)
[2017-09-26 08:02] LABS: Urine Appearance Cloudy; Urine Blood 3+ (Negative); Urine Color Yellow; Urine Ketones Negative (Negative); Urine Protein 1+(30 mg/dL) (Negative); Urine Specific Gravity 1.011 (1.010-1.030); Urine Urobilinogen Negative (Negative)
[2017-09-26] MEDS ORDERED: NS 0.9% 1000 ML* 1,000 ML IV ONE (08:22)
[2017-09-26 08:53] LABS: INR 1.03 (0.77-1.02)
[2017-09-26 10:10] VITALS: BP 123/83
== END 2017-09-26 10:08 | disposition home or self-care (01) ==
LOC: ED 06:22
DX: R33.9 Retention of urine, unspecified (principal); I10 Essential (primary) hypertension; E78.00 Pure hypercholesterolemia, unspecified; I48.91 Unspecified atrial fibrillation; Z79.82 Long term (current) use of aspirin; Z85.828 Personal history of other malignant neoplasm of skin; Z88.4 Allergy status to anesthetic agent; Z87.891 Personal history of nicotine dependence
CPT/HCPCS: 36415; 51702; 80053; 81003; 81015; 85025; 85610; 87086; 93005; 96360; 99283

== ENCOUNTER 2018-09-28 16:19 | Emergency (ER) | payer MEDICARE ==
--- NOTE | 2018-09-28 17:12 | ED ---
GI/ HPI - HPI Summary HPI Summary: This patient is a 88 year old M presenting to ED with complaints of nausea, decreased appetite. He also notes that food has been feeling "heavy" whenever he eats. Patient was sent here by Dr. Montgomery who performed CT abd/pel and blood tests this morning showing altered kidney function and abnormal CT scan. Patient has not eaten much today compared to usual consumption. Patient describes himself as a robust eater, but eating in the past month has felt like food sitting on stomach, noting that the food feels "heavy". He states he gets borderline nausea after eating. Patient currently denies having any pain or nausea. Some decrease of urinary output is noted as well. 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 FHx of HTN. Patient drinks alcohol weekly and is a former smoker but denies substance use. Patient makes note of benign prostate hyperplasia resected by TURP. PSA was not reduced following Lupron treatment but responded to bicalutamide. Patient also notes that several months he had an upper GI bleed due to Aleve and blood thinner combination, but recovered "nicely" following 8 units of blood. Patient also notes recently having several benign polyps removed. Patient is accompanied by . - History of Current Complaint Chief Complaint: EDGeneral Time Seen by Provider: 09/28/18 16:45 Stated Complaint: ABNORMAL LABS PER PT Hx Obtained From: Patient, Family/Financial Adviser - Onset/Duration: Started Weeks Ago - One month of discomfort while eating Timing: Intermittent - Following eating Current Severity: Mild Pain Intensity: 2 Associated Signs and Symptoms: Positive: Nausea - Only after eating, denies nausea on exam, Change in Appetite - Decreased, Other: - food feels "heavy", decreased urinary output Aggravating Factor(s): Food Alleviating Factor(s): Nothing - Additional Pertinent History Primary Care Physician: [id number] - Allergy/Home Medications Allergies/Adverse Reactions: Allergies Allergy/AdvReac Type Severity Reaction Status Date / Time warfarin Allergy Severe Bleeding Verified 04/29/18 14:00 lidocaine AdvReac Mild Anxiety Verified 05/31/18 11:05 PMH/Surg Hx/FS Hx/Imm Hx Cardiovascular History: Reports: Hx Hypercholesterolemia, Hx Hypertension - ON MEDS PT. STATES CONTROLLED, Other Cardiovascular Problems/Disorders - cardiac cath, AFIB OCCASIONALLY Respiratory History: Reports: Hx Sleep Apnea - no machine GI History: Reports: Hx Gastrointestinal Bleed, Hx Ulcer - 09/16 ADMITTED TO HOSPITAL R/T WARFARIN USE History: Reports: Other Problems/Disorders - prostate cancer, BPH CURRENTLY HAS DURAN CATH IN PLACE R/T URINARY RETENTIO Musculoskeletal History: Reports: Hx Arthritis - OSTEO KNEES, Other Musculoskeletal History - chronic lle lymphedema Sensory History: Reports: Hx Cataracts - mild, Hx Contacts or Glasses - GLASSES Denies: Hx Hearing Aid Opthamlomology History: Reports: Hx Cataracts - mild, Hx Contacts or Glasses - GLASSES Neurological History: Reports: Other Neuro Impairments/Disorders - neuropathy in fingers bilat Psychiatric History: Reports: Hx Anxiety - Cancer History Cancer Type, Location and Year: BASAL CELL EARS/NOSE Hx Chemotherapy: Yes - Surgical History Surgery Procedure, Year, and Place: bilat inguinal hernia REPAIR. basal cell carcinoma removed bilat ears and nose 2001 DR. HART. 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 HART. RIGHT TOTAL KNEE REPLACEMENT 10/14/2016 DR. CORTEZ [facility] [place] Hx Anesthesia Reactions: No Infectious Disease History: No Infectious Disease History: Denies: Traveled Outside the [place] in Last 30 Days - Family History Known Family History: Positive: Hypertension - Social History Alcohol Use: Weekly Alcohol Amount: 1 WEEKLY Hx Substance Use: No Substance Use Type: Reports: None Hx Tobacco Use: Yes Smoking Status (MU): Former Smoker Amount Used/How Often: smoked 8 years, 1/2 - 1ppd Review of Systems Negative: Fever Gastrointestinal: Other - Feeling of "food sitting on stomach" and food feeling "heavy"; decreased appetite Positive: Nausea - Nausea experienced mostly after eating, none present in room Genitourinary: Other - NEGATIVE - DECREASED URINARY OUTPUT All Other Systems Reviewed And Are Negative: Yes Physical Exam - Summary Physical Exam Summary: VITAL SIGNS: Reviewed. GENERAL: Patient is a well-developed and nourished male who is lying comfortable in the stretcher. Patient is not in any acute respiratory distress. HEAD AND FACE: No signs of trauma. No ecchymosis, hematomas or skull depressions. No sinus tenderness. EYES: PERRLA, EOMI x 2, No injected conjunctiva, no nystagmus. EARS: Hearing grossly intact. Ear canals and tympanic membranes are within normal limits. MOUTH: Oropharynx within normal limits. NECK: Supple, trachea is midline, no adenopathy, no JVD, no carotid bruit, no c- spine tenderness, neck with full ROM. CHEST: Symmetric, no tenderness at palpation LUNGS: Clear to auscultation bilaterally. No wheezing or crackles. CVS: Regular rate and rhythm, S1 and S2 present, no murmurs or gallops appreciated. ABDOMEN: Soft, non-tender. No signs of distention. No rebound no guarding, and no masses palpated. Bowel sounds are normal. EXTREMITIES: FROM in all major joints, no edema, no cyanosis or clubbing. NEURO: Alert and oriented x 3. No acute neurological deficits. Speech is normal and follows commands. SKIN: Dry and warm Triage Information Reviewed: Yes Vital Signs On Initial Exam: Initial Vitals Temp Pulse Resp BP Pulse Ox 97 F 63 18 149/65 100 09/28/18 16:24 09/28/18 16:24 09/28/18 16:24 09/28/18 16:24 09/28/18 16:24 Vital Signs Reviewed: Yes Diagnostics - Vital Signs Vital Signs Temp Pulse Resp BP Pulse Ox 09/28/18 16:24 97 F 63 18 149/65 100 - Laboratory Result Diagrams: 09/28/18 17:59 09/28/18 17:59 Lab Statement: Any lab studies that have been ordered have been reviewed, and results considered in the medical decision making process. - Ultrasound No standard instances Ultrasound Interpretation Completed By: Radiologist Summary of Ultrasound Findings: Renal US revealed large simple cyst in the lateral aspect of left kidney measuring 13 cm, corresponding to CT finding. This report was reviewed by Dr. Carrizales. Re-Evaluation - Re-Evaluation First Eval Re-Evaluation Time: 17:48 Comment: Patient urinated, bladder scan to be done Second Eval Re-Evaluation Time: 18:06 Comment: Bladder scan done, 300CC urine visualized Third Eval Re-Evaluation Time: 18:57 Comment: Review of CT done by Dr. Ewing this morning showed: no evidence for acute intra-abdominal abnormality, 1.9 cm left renal nodule conssitent with either a soft tissue mass or hyperdense cyst (recommended a renal ultrasound), slightly prominent retroperitoneal lymph nodes, left inguinal hernia containing fat and small amount of free intraperitoneal fluid, diffuse thickening of the wall of the urinary bladder with multiple diverticuli most consistent with outlet obstruction, and severe osteoarthritic change in the right hip. GIGU Course/Dx - Course Assessment/Plan: This patient is an 88-year-old male who presents to the emergency room with a chief complaint of being asked by Dr. Montgomery from to come to the emergency department. Apparently he ordered an abdomen/pelvic CT and there was an abnormal finding, therefore he requested the patient to come to the ED. Also the patient reports that he is having decreased urinary output. Therfore, I will discharge the patient home for Dr. Marin. Blood test results without any significant abnormality except for a slight anemia, BUN is 54, creatinine is 2.92, glucose 105, CRP of 27.6, and urinalysis with a positive protein, +1+ blood, 3+ leukocytes, 3+ WBCs, 3+ RBCs, positive UTI. Therefore the patient was given IV fluids for the dehydration, he was given Rocephin for the UTI and he had a Duran catheter in place. I discussed the case with Dr. Bedoya from the hospital services who accepted the patient for further workup and management. Dr. Marin from the hospital services saw and examined the patient and after her assessment she recommends for the patient to be discharged home with follow-up with Dr. Carlson from urology. I made Dr. Marin aware that the patient has an acute renal failure, with a creatinine of 1.65 on 08/05/18 and now the patient is having a creatinine of 2.92. However, she feels comfortable discharging the patient home with follow-up with Dr. Carlson. - Diagnoses Provider Diagnoses: Urinary retention, UTI (urinary tract infection), Renal failure (ARF), acute on chronic - Physician Notifications Discussed Care Of Patient With: Vivek Bedoya Time Discussed With Above Provider: 18:52 Instructed by Provider To: Other - Discussed case with Dr. Bedoya hospitalist who accepted the patient for admission for further workup and management. 2033 - Discussed case with Dr. Marin who saw and examined the patient and after her assessment she recommends for the patient to be discharged home with follow-up with Dr. Carlson from urology. Discharge - Sign-Out/Discharge Documenting (check all that apply): Patient Departure - Discharge Patient Received Moderate/Deep Sedation with Procedure: No - Discharge Plan Condition: Stable Disposition: HOME Prescriptions: Cephalexin CAP* [Keflex CAP*] 500 mg PO TID #30 cap Patient Education Materials: Urinary Retention in Men (ED), Urinary Tract Infection in Men (ED) Referrals: Vito Way MD [Primary Care Provider] - 3 Days Andrew Carlson MD [Medical Doctor] - 1 Day Additional Instructions: Dr. Marin has discharged you from [facility]. Follow-up with your primary care provider in three days. Follow-up with Dr. Carlson tomorrow. RETURN TO THE ER IF WORSENING OR CHANGING SYMPTOMS. - Billing Disposition and Condition Condition: STABLE Disposition: Home - Attestation Statements Document Initiated by Scribe: Yes Documenting Scribe: Romeo Miller Provider For Whom Nancye is Documenting (Include Credential): Martin Carrizales MD Scribe Attestation: I, Romeo Miller, scribed for Martin Carrizales MD on 09/28/18 at 2159. Scribe Documentation Reviewed: Yes Provider Attestation: The documentation as recorded by the scribe, Romeo Miller accurately reflects the service I personally performed and the decisions made by me, Martin Carrizales MD Status of Scribe Document: Viewed
[2018-09-28] MEDS ORDERED: NS 0.9% 1000 ML** 1,000 ML IV ONE (17:48)
[2018-09-28 18:12] LABS: ABS Basophils 0.1 10^3/ul (0-0.2); ABS Eosinophils 0.2 10^3/ul (0-0.6); ABS Monocytes 0.7 10^3/ul (0-0.8); ABS Neutrophils 5.5 10^3/ul (1.5-7.7); ABS Nucleated RBC 0 10^3/ul; Eosinophil % 2.7 %; Hematocrit 31 % (36-46); Hemoglobin 10.4 g/dL (14.0-18.0); Mean Corpuscular HGB Conc 33 g/dL (31-36); Mean Corpuscular Hemoglobin 30 pg (27-31); Mean Corpuscular Volume 91 fL (80-94); Mean Platelet Volume 7.7 fL (7.4-10.4); Nucleated Red Blood Cells % 0; Platelet Count 251 10^3/uL (150-450); Red Blood Count 3.43 10^6 /uL (4.18-5.48); Red Cell Distribution Width 14 % (10.5-15); White Blood Count 7.5 10^3/uL (3.5-10.8)
[2018-09-28 18:15] LABS: Urine Appearance Turbid; Urine Bacteria Absent (Absent); Urine Bilirubin Negative (Negative); Urine Blood 1+ (Negative); Urine Color Yellow; Urine Glucose Negative (Negative); Urine Ketones Negative (Negative); Urine Nitrite Negative (Negative); Urine Protein 2+(100 mg/dL) (Negative); Urine Red Blood Cell 3+(>10/hpf) (Absent); Urine Specific Gravity 1.013 (1.010-1.030); Urine Urobilinogen Negative (Negative); Urine White Blood Cell 3+(>20/hpf) (Absent)
[2018-09-28 18:24] LABS: Albumin 4.1 g/dL (3.2-5.2); BUN/Creatinine Ratio 18.5 (8-20); C Reactive Protein 27.65 mg/L (<8.01); Calcium 9.2 mg/dL (8.6-10.3); EGFR African American 24.8 (>60); EGFR Non-African American 20.5 (>60); Potassium 4.5 mmol/L (3.5-5.0); Total Bilirubin 0.6 mg/dL (0.2-1.0); Total Protein 8.1 g/dL (6.4-8.9)
[2018-09-28] MEDS ORDERED: cefTRIAXone(*) 1 GM in NS 0.9% 50 ML* 50 ML IVPB ONE (18:45)
--- NOTE | 2018-09-28 20:33 | PN ---
Progress Note - Progress Note Date of Service: 09/28/18 Note: Consultation Report Patient presented to ED due to instructions from ARPAN Montgomery due to elevated creatinine above his baseline and concerning findings on outpatient CT of abd obtained earlier today. Per report patient's baseline creatinine is 1 and was noted to be 2.[address] revealed left renal nodule, retroperitoneal lymph nodes , diffuse thickening of wall of the urinary bladder consistent with outlet obstruction. Renal ultrasound In ED found to be retaining on post void residual scan, therefore, huntley (cude 16 swedish) placed and 480 mls drained. Urinalysis obtained and suspicious for UTI therefore Rocephin given in ED. On assessment patient is asymptomatic. Denies recent fever or urinary symptoms. Reports he had an appointment with Dr Carlson tomorrow but cancelled due to being in the ED. Discussed admission versus discharge home, patient would like to be discharged home and I agree with this plan. I suspect patient's creatinine was elevated given urinary retention and will trend down after huntley placed. Patient is also well versed in having huntley at home as he had one in the past. He is also established with Dr Carlson. I would recommend patient be discharged with Keflex due to concerning UA. I would recommend patient follow up with Dr Carlson for further evaluation and void trial this week. Patient and will call tomorrow for follow up. I would also recommend patient has a repeat BMP this week with Dr Carlson or primary care provider to reassess creatinine. Patient and agree with plan and state understanding. I have reviewed this plan with my attending Dr Marin who agrees with my plan.
[2018-09-28] MEDS ORDERED: Acetaminophen TAB* 325 MG PO ONE (20:55)
[2018-09-28 21:12] VITALS: BP 131/59
== END 2018-09-28 21:35 | disposition home or self-care (01) ==
LOC: ED 16:19
DX: N40.1 Benign prostatic hyperplasia with lower urinary tract symptoms (principal); R33.8 Other retention of urine; N39.0 Urinary tract infection, site not specified; N17.9 Acute kidney failure, unspecified; N28.1 Cyst of kidney, acquired; R11.0 Nausea; E78.00 Pure hypercholesterolemia, unspecified; I10 Essential (primary) hypertension; I48.91 Unspecified atrial fibrillation; M17.0 Bilateral primary osteoarthritis of knee; F41.9 Anxiety disorder, unspecified; Z96.651 Presence of right artificial knee joint; Z88.4 Allergy status to anesthetic agent; Z88.8 Allergy status to other drugs, medicaments and biological substances; Z87.891 Personal history of nicotine dependence
CPT/HCPCS: 36415; 76775; 80053; 81003; 81015; 85025; 86140; 87086; 87106; 96361; 96365; 99284; A9270-GY; J0696